=== PATIENT | male | born 1990 | race Caucasian/White ===

== ENCOUNTER 2023-10-11 21:43 | Emergency (ER) | payer OTHER, SELFPAY ==
[2023-10-11 21:52] VITALS: BP 143/92
--- NOTE | 2023-10-11 21:52 | ECG_ITS ---
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
[2023-10-11 21:53] VITALS: BP 143/92; PULSE 85; TEMP 37.2; O2SAT 98; BMI 28.1
[2023-10-11 22:12] VITALS: BP 135/94
--- NOTE | 2023-10-11 22:27 | ED_ITS ---
HPI - Chest Pain General Chief Complaint: Chest Pain Stated Complaint: CHEST PAIN Time Seen by Provider: 10/11/23 21:54 Source: patient Mode of arrival: walk-in History of Present Illness HPI narrative: This 32-year-old male, non-smoker, with a history of GERD presents for evaluation of left-sided chest pain. The patient states he woke up this morning and had several episodes of vomiting associated with chest pain. He also has a dry cough. He has had the pain intermittently throughout the day. Pain is worse with movement. He denies any abdominal pain. He states the pain in the left side of his chest radiates into his left arm and his fingers feel kind of tingly. He denies any heavy lifting or injury to his chest. He has no lower extremity pain or swelling. At this time he has a headache, the pain in his chest and mild nausea. He has not had a fever. He has no skin rash. He has no neck pain or stiffness. Related Data Home Medications ?Medication ?Instructions ?Recorded ?Confirmed cholecalciferol (vitamin D3) 50 50 mcg PO DAILY 10/11/23 10/11/23 mcg (2,000 unit) tablet (Vitamin D3) fluoxetine 20 mg capsule 80 mg PO DAILY 10/11/23 10/11/23 hydroxyzine HCl 50 mg tablet 50 mg PO BID 10/11/23 10/11/23 Allergies Allergy/AdvReac Type Severity Reaction Status Date / Time No Known Drug Allergies Allergy Verified 10/11/23 21:52 Review of Systems ROS Status of ROS 10 or more systems reviewed and unremark able except as noted in history and below Exam Narrative Exam Narrative: Vital signs and Nursing Notes reviewed: Patient is afebrile, pulse is normal at 85, blood pressure is mildly elevated at 143/92, he is not hypoxic with pulse ox of 98% on room air General: Awake, alert, oriented, no acute distress, lying comfortably on the stretcher, no respiratory distress, no active vomiting HEENT: Normocephalic atraumatic, mucous membranes are moist and pink, eyes are clear, normal conjunctiva, vision is grossly intact Neck: Supple, no meningeal signs, no anterior or posterior cervical lymphadenopathy Chest: Lungs are clear to auscultation with good air entry, there is no wheezing rhonchi or rales appreciated no accessory muscle use, patient is speaking in complete sentences-tenderness to palpation of the left anterior chest wall without crepitus CVS: Regular rate and rhythm S1-S2, no murmurs rubs or gallops, pulses are brisk and equal bilaterally ABD: Soft, nondistended, nontender, no rebound guarding or rigidity, bowel sounds are normal, no pulsatile masses appreciated Extremities: Moving all extremities, no lower extremity tenderness or swelling noted, negative Homans' sign, pulses are brisk and equal bilaterally Skin: Normal in appearance without rash,pallor, petechiae or purpura Neuro: No focal deficits Constitutional Vital Signs, click to edit/add: Last Vital Signs Temp 98.9 F 10/11/23 21:53 Pulse 85 10/11/23 21:53 Resp 18 10/11/23 21:53 BP 124/89 10/12/23 00:00 Pulse Ox 98 10/11/23 21:53 O2 Del Method Room Air 10/11/23 21:53 Course Vital Signs Vital signs: Vital Signs Blood Pressure 143/92 H 10/11/23 21:52 Temperature 98.9 F 10/11/23 21:53 Pulse Rate 85 10/11/23 21:53 Respiratory Rate 18 10/11/23 21:53 Blood Pressure 124/89 10/12/23 00:00 Pulse Oximetry 98 10/11/23 21:53 Oxygen Delivery Method Room Air 10/11/23 21:53 MDM - Chest Pain MDM Narrative Medical decision making narrative: This otherwise healthy 32-year-old male presents for evaluation of a headache and left-sided chest pain that radiates into his left arm with some numbness of the left hand. The pain in his chest is made worse with movement the patient states he woke up this morning with chest pain and had 2 episodes of vomiting. He does have a longstanding history of GE reflux but states this does not feel similar to that. He denies any shortness of breath dizziness or syncope. He has not had a fever. He is still nauseated but denies any abdominal pain. He has no flank pain. He has no lower extremity pain or swelling. He does not smoke or have a history of diabetes, hypertension, he is not obese. Patient's EKG was normal sinus rhythm with no acute changes. An IV was placed and he was medicated with IV fluids, 324 mg baby aspirin, Zofran and Toradol. Routine cardiac workup was ordered. He has a normal white count and hemoglobin. Electrolytes liver function tests and lipase are normal. Troponin and D-dimer are both normal. I reviewed his chest x-ray and it does not show any acute findings. Patient was reevaluated and states he is feeling the same. He will be given a dose of [place] while I wait for respiratory panel. I did explain to him that his labs are normal at this time. We will order a delta troponin as well. Respiratory panel is positive for rhino/enterovirus which explains his cough and vomiting. delta troponin is normal. He feels comfortable being discharged home at this time. I will discharge him with a prescription for Zofran and suggested that he use [id number] cough and cold remedies for the rhinovirus component of his illness. Medical Records Data Medical records narrative: The [place] [id number] XRay Report Signed Patient: ARTI MANUEL MR#: [id number] : 1990 Acct:[id number] Age/Sex: 32 / M ADM Date: 10/11/23 Loc: ER Attending Dr: Ordering Physician: Sloane Fuller Date of Service: 10/11/23 Procedure(s): XR chest 1V Accession Number(s): [id number] cc: Sloane Fuller; Physician,Non-Staff M.DJoyce~ The [place] [id number] Patient Name: ARTI MANUEL MRN: [id number] date: 1990 Sex: M Assigned Patient Location: ER Current Patient Location: ER Accession/Order Number: [id number] Exam Date: 10/11/2023 23:15 Report Date: 10/12/2023 00:35 At the request of: SLOANE FULLER Procedure: XR chest 1V CXR HISTORY: Chest pain with nausea and vomiting. COMPARISON: None. TECHNIQUE: 1 view chest submitted for review. FINDINGS: The lungs are adequately expanded without evidence of acute infiltrate or effusion. The cardiac silhouette measures within normal. Pulmonary vascularity is unremarkable. Osseous structures do not demonstrate any acute abnormality. XR/XR chest 1V IMPRESSION: No plain film evidence for acute cardiopulmonary disease. Electronically authenticated by: YANIV WHITMORE Date: 10/12/2023 00:35 Lab Data Labs: Lab Results 10/11/23 10/11/23 10/12/23 Range/Units 22:03 23:11 00:10 WBC 9.8 (4.0-11.0) 10^3/uL RBC 5.06 (4.70-6.10) 10^6/uL Hgb 15.8 (14.0-18.0) g/dL Hct 46.7 (42.0-54.0) % MCV 92.3 (80.0-94.0) fL MCH 31.2 (25.9-34.0) pg MCHC 33.8 (29.9-35.2) g/dL RDW 12.7 (11.0-15.0) % Plt Count 380 (150-450) 10^3/uL MPV 10.6 (9.5-13.5) fL Neut % (Auto) 52.8 (43.0-75.0) % Lymph % (Auto) 35.5 (20.5-60.0) % [place] % (Auto) 6.7 (1.7-12.0) % Eos % (Auto) 3.6 (0.9-7.0) % Baso % (Auto) 1.2 (0.2-2.0) % Neut # (Auto) 5.2 (1.4-6.5) 10^3/uL Lymph # (Auto) 3.5 (1.2-3.8) 10^3/uL [place] # (Auto) 0.7 (0.3-0.8) 10^3/uL Eos # (Auto) 0.4 (0.0-0.7) 10^3/uL Baso # (Auto) 0.1 (0.0-0.1) 10^3/uL Abs Immat Gran (auto) 0.02 (0.00-0.03) 10^3/uL Imm/Tot Granulo (auto) 0.2 (0.0-0.5) % D-Dimer <0.19 (<=0.59) mg/L FEU Sodium 143 (136-145) mmol/L Potassium 3.2 L (3.5-5.1) mmol/L Chloride 104 (98-107) mmol/L Carbon Dioxide 30.0 (21.0-32.0) mmol/L Anion Gap 12.2 BUN 14.0 (7.0-18.0) mg/dL Creatinine 1.22 (0.70-1.30) mg/dL Est GFR ( Amer) >60 (>=60) Est GFR (Non-Af Amer) >60 (>=60) BUN/Creatinine Ratio 11.5 Glucose 97 (74-106) mg/dL Calcium 9.5 (8.5-10.1) mg/dL Total Bilirubin 0.4 (0.2-1.0) mg/dL AST 20 (15-37) U/L ALT 53 (16-63) U/L Alkaline Phosphatase 95 (46-116) U/L Troponin I High Sens 11.1 10.7 (4.0-76.1) pg/mL Total Protein 8.2 (6.4-8.2) g/dL Albumin 3.9 (3.4-5.0) g/dL Globulin 4.3 g/dL Albumin/Globulin Ratio 0.9 Lipase 77.0 (16.0-77.0) U/L Adenovirus (PCR) Not detected (NOT DETECTE) B. pertussis DNA (PCR) Not detected (NOT DETECTE) B.parapertussis DNA PCR Not detected (NOT DETECTE) C. pneumoniae DNA (PCR) Not detected (NOT DETECTE) Coronavirus Type OC43 Not detected (NOT DETECTE) Coronavirus Type HKU1 Not detected (NOT DETECTE) Coronavirus Type 229E Not detected (NOT DETECTE) Coronavirus Type NL63 Not detected (NOT DETECTE) Human Metapneumovir PCR Not detected (NOT DETECTE) Influenza Type A (PCR) Not detected (NOT DETECTE) Influenza Type B (PCR) Not detected (NOT DETECTE) M. pneumoniae (PCR) Not detected (NOT DETECTE) Parainfluenza PCR Not detected (NOT DETECTE) Parainfluenza 2 (PCR) Not detected (NOT DETECTE) Parainfluenza 3 (PCR) Not detected (NOT DETECTE) Parainfluenza 4 (PCR) Not detected (NOT DETECTE) RSV (RT-PCR) Not detected (NOT DETECTE) Entero/Rhino (PCR) Detected A (NOT DETECTE) SARS-CoV-2 (PCR) Not detected (NOT DETECTE) ECG Data Attestation: I personally reviewed and interpreted this ECG as follows: (Sinus rhythm at 69 bpm, normal axis, normal intervals, no acute ST segment elevation or T wave inversion) Heart Score History: Slightly/Non-Suspicious ECG: Normal Age: <45 years Risk Factors: No Risk Factors Troponin: <Normal Limit Total Heart Score Recommendations & Risks:: 0 Discharge Plan Discharge Stand Alone Forms: Portal Instructions Chief Complaint: Chest Pain Clinical Impression: Acute viral syndrome, Chest pain, non-cardiac, Nausea & vomiting Patient Disposition: Home, Self-Care Time of Disposition Decision: 01:04 Condition: Good Prescriptions / Home Meds: No Action hydroxyzine HCl 50 mg tablet 50 mg PO BID cholecalciferol (vitamin D3) [Vitamin D3] 50 mcg (2,000 unit) tablet 50 mcg PO DAILY fluoxetine 20 mg capsule 80 mg PO DAILY Print Language: Kyrgyz Instructions: Acute Nausea and Vomiting (ED), Viral Syndrome (ED), Chest Wall Pain (ED) Referrals: Physician,Non-Staff, MD [Primary Care Provider] - 1 week
[2023-10-11 22:30] VITALS: BP 133/90
[2023-10-11] MEDS: ASPIRIN 81 MG TAB.CHEW 324 MG PO (22:44)
[2023-10-11] MEDS: 0.9 % SODIUM CHLORIDE 1,000 ML 1000 ML IV (22:44)
[2023-10-11] MEDS: ONDANSETRON PF 4 MG/2 ML VIAL IV (22:45)
[2023-10-11] MEDS: KETOROLAC TROMETHAMINE 30 MG/ML VIAL IVP (22:45)
[2023-10-11] MEDS: FAMOTIDINE/PF 20 MG/2 ML VIAL IV (22:45)
[2023-10-11 22:48] LABS: Basophils Absolute Auto 0.1 10^3/uL (0.0-0.1); Basophils Percent Auto 1.2 % (0.2-2.0); Eosinophils Absolute Auto 0.4 10^3/uL (0.0-0.7); Eosinophils Percent Auto 3.6 % (0.9-7.0); Hematocrit 46.7 % (42.0-54.0); Hemoglobin 15.8 g/dL (14.0-18.0); Immature Granulocytes Abs Auto 0.02 10^3/uL (0.00-0.03); Immature Granulocytes Pct Auto 0.2 % (0.0-0.5); Lymphocytes Absolute Auto 3.5 10^3/uL (1.2-3.8); Lymphocytes Percent Auto 35.5 % (20.5-60.0); Mean Corpuscular HGB Conc 33.8 g/dL (29.9-35.2); Mean Corpuscular Hemoglobin 31.2 pg (25.9-34.0); Mean Corpuscular Volume 92.3 fL (80.0-94.0); Mean Platelet Volume 10.6 fL (9.5-13.5); Monocytes Absolute Auto 0.7 10^3/uL (0.3-0.8); Monocytes Percent Auto 6.7 % (1.7-12.0); Neutrophils Absolute Auto 5.2 10^3/uL (1.4-6.5); Neutrophils Percent Auto 52.8 % (43.0-75.0); Platelet Count 380 10^3/uL (150-450); Red Blood Count 5.06 10^6/uL (4.70-6.10); Red Cell Distribution Width 12.7 % (11.0-15.0); White Blood Count 9.8 10^3/uL (4.0-11.0)
[2023-10-11 23:00] VITALS: BP 133/91
[2023-10-11 23:04] LABS: D Dimer <0.19 mg/L FEU (<=0.59)
[2023-10-11 23:07] LABS: Alanine Aminotransferase 53 U/L (16-63); Albumin Globulin Ratio 0.9; Albumin Level 3.9 g/dL (3.4-5.0); Alkaline Phosphatase 95 U/L (46-116); Anion Gap 12.2; Aspartate Amino Transferase 20 U/L (15-37); BUN Creatinine Ratio 11.5; Bilirubin Total 0.4 mg/dL (0.2-1.0); Calcium 9.5 mg/dL (8.5-10.1); Chloride 104 mmol/L (98-107); Estimated GFR (African America >60 (>=60); Estimated GFR (Non-African Ame >60 (>=60); Globulin 4.3 g/dL; Glucose 97 mg/dL (74-106); Potassium 3.2 mmol/L (3.5-5.1); Sodium 143 mmol/L (136-145); Total Protein 8.2 g/dL (6.4-8.2); Troponin I High Sensitivity 11.1 pg/mL (4.0-76.1)
--- NOTE | 2023-10-11 23:12 | XR_ITS ---
The [address] [address] Patient Name: ARTI MANUEL MRN: [id number] date: 1990 Sex: M Assigned Patient Location: ER Current Patient Location: ER Accession/Order Number: [id number] Exam Date: 10/11/2023 23:15 Report Date: 10/12/2023 00:35 At the request of: LAUREANO MARKER Procedure: XR chest 1V CXR HISTORY: Chest pain with nausea and vomiting. COMPARISON: None. TECHNIQUE: 1 view chest submitted for review. FINDINGS: The lungs are adequately expanded without evidence of acute infiltrate or effusion. The cardiac silhouette measures within normal. Pulmonary vascularity is unremarkable. Osseous structures do not demonstrate any acute abnormality. XR/XR chest 1V IMPRESSION: No plain film evidence for acute cardiopulmonary disease. Electronically authenticated by: YANIV WHITMORE Date: 10/12/2023 00:35
[2023-10-11 23:30] VITALS: BP 125/93
[2023-10-11 23:32] LABS: Adenovirus NOT DETECTED (NOT DETECTE); Bordetella parapertussis NOT DETECTED (NOT DETECTE); Coronavirus 229E NOT DETECTED (NOT DETECTE); Coronavirus HKU1 NOT DETECTED (NOT DETECTE); Coronavirus NL63 NOT DETECTED (NOT DETECTE); Coronavirus OC43 NOT DETECTED (NOT DETECTE); Human Metapneumovirus NOT DETECTED (NOT DETECTE); Influenza A NOT DETECTED (NOT DETECTE); Influenza B NOT DETECTED (NOT DETECTE); Mycoplasma pneumoniae NOT DETECTED (NOT DETECTE); Parainfluenza Virus 1 NOT DETECTED (NOT DETECTE); Parainfluenza Virus 2 NOT DETECTED (NOT DETECTE); Parainfluenza Virus 3 NOT DETECTED (NOT DETECTE); Parainfluenza Virus 4 NOT DETECTED (NOT DETECTE); Respiratory Syncytial Virus NOT DETECTED (NOT DETECTE); SARS-CoV-2 NOT DETECTED (NOT DETECTE)
[2023-10-12] VITALS: BP 124/89
[2023-10-12] MEDS: HYDROCODONE/ACET 5-325 MG TABLET 1 TAB PO (00:10)
[2023-10-12 00:24] LABS: Human Rhinovirus/Enterovirus DETECTED (NOT DETECTE)
[2023-10-12 00:30] VITALS: BP 127/81
[2023-10-12 00:43] LABS: Troponin I High Sensitivity 10.7 pg/mL (4.0-76.1)
[2023-10-12] MEDS: ONDANSETRON PF 4 MG/2 ML VIAL IV (00:44)
== END 2023-10-12 01:12 | disposition home or self-care (01) ==
PROVIDERS: Emergency Provider Emergency Medicine
DX: B34.8 Other viral infections of unspecified site (principal); R07.89 Other chest pain; R11.2 Nausea with vomiting, unspecified; K21.9 Gastro-esophageal reflux disease without esophagitis; Z20.822 Contact with and (suspected) exposure to COVID-19
CPT/HCPCS: 0202U; 36415; 71045; 80053; 83690; 84484; 85025; 85378; 93005; 96361; 96374; 96375; 96376; 99285; J1885; J2405

== ENCOUNTER 2024-06-09 21:19 | Emergency (ER) | payer OTHER, SELFPAY ==
[2024-06-09 21:21] VITALS: BP 164/102; PULSE 97; TEMP 36.8; O2SAT 98; BMI 26.6
--- NOTE | 2024-06-09 21:33 | ED.GENADUL1 ---
HPI HPI - General Adult General Chief complaint: Extremity Injury, Upper Stated complaint: POSS BROKEN HAND Time Seen by Provider: 06/09/24 21:23 Source: patient Mode of arrival: walk-in Limitations: no limitations History of Present Illness HPI narrative: 33-year-old male to the emergency department chief complaint of injury to his right hand. He is right-handed male. He was working on a vehicle when he became frustrated and punched a metal pole. He now has pain over he the ulnar aspect of his hand. No other injuries. Otherwise at his baseline health.Denies punching a person. Related Data Home Medications ?Medication ?Instructions ?Recorded ?Confirmed cholecalciferol (vitamin D3) 50 50 mcg PO DAILY 10/11/23 10/11/23 mcg (2,000 unit) tablet (Vitamin D3) fluoxetine 20 mg capsule 80 mg PO DAILY 10/11/23 10/11/23 hydroxyzine HCl 50 mg tablet 50 mg PO BID 10/11/23 10/11/23 Previous Rx's ?Medication ?Instructions ?Recorded hydrocodone 5 mg-acetaminophen 325 1 tab PO Q6H PRN pain 2 days #8 06/09/24 mg tablet tabs Allergies Allergy/AdvReac Type Severity Reaction Status Date / Time No Known Drug Allergies Allergy Verified 06/09/24 21:21 Opioid HPI Opioid Management Most Recent Opioid Data: No Data to Display Review of Systems ROS Status of ROS 10 or more systems reviewed and unremarkable except as noted in history and below PFSH PFSH Social History Little interest or pleasure in doing things: not at all Feeling down, depressed, or hopeless: not at all Exam Narrative Exam Narrative: VITALS: I have reviewed the triage vital signs. GENERAL: Well developed, well appearing adult in no acute distress. Right hand: Radial pulses intact. Sensation intact over the hand. There is tenderness and some swelling about the fifth metacarpal, worse proximally. No lacerations or breaks in the skin. SKIN: Warm and dry. Normal turgor. No rash or lesions appreciated. PSYCH: Mood, affect, and interaction is appropriate to the setting. Constitutional Vital Signs, click to edit/add: Last Vital Signs Temp 98.2 F 06/09/24 21:21 Pulse 97 H 06/09/24 21:21 Resp 15 06/09/24 21:21 BP 164/102 H 06/09/24 21:21 Pulse Ox 98 06/09/24 21:21 O2 Del Method Room Air 06/09/24 21:21 Course Vital Signs Vital signs: Vital Signs Temperature 98.2 F 06/09/24 21:21 Pulse Rate 97 H 06/09/24 21:21 Respiratory Rate 15 06/09/24 21:21 Blood Pressure 164/102 H 06/09/24 21:21 Pulse Oximetry 98 06/09/24 21:21 Oxygen Delivery Method Room Air 06/09/24 21:21 Temperature 98.2 F 06/09/24 21:21 Pulse Rate 97 H 06/09/24 21:21 Respiratory Rate 15 06/09/24 21:21 Blood Pressure 164/102 H 06/09/24 21:21 Pulse Oximetry 98 06/09/24 21:21 Oxygen Delivery Method Room Air 06/09/24 21:21 Medical Decision Making MDM Narrative Medical decision making narrative: 33-year-old male to the emergency department chief complaint of injury to his right hand. Vital stable, the patient is afebrile. He declines pain medication. X-ray is ordered. X-ray shows a metacarpal neck fracture of the fifth metacarpal bone with some volar angulation. Reduced using 90-90 technique. Placed in an ulnar gutter splint. Follow-up with orthopedics. Return precautions were discussed. Short course of pain medication. OARRS reviewed. All questions were answered. The patient was discharged home. Imaging Data Hand x-ray: Attestation: I have reviewed the pertinent imaging results. Radiologist's impression: See PACS document Discharge Plan Discharge Chief Complaint: Extremity Injury, Upper Clinical Impression: Boxer's fracture Patient Disposition: Home, Self-Care Time of Disposition Decision: 22:13 Condition: Good Mode of Transportation: Private Vehicle Prescriptions / Home Meds: New hydrocodone-acetaminophen 5-325 mg tablet 1 tab PO Q6H PRN (Reason: pain) 2 Days Qty: 8 0RF No Action hydroxyzine HCl 50 mg tablet 50 mg PO BID cholecalciferol (vitamin D3) [Vitamin D3] 50 mcg (2,000 unit) tablet 50 mcg PO DAILY fluoxetine 20 mg capsule 80 mg PO DAILY Print Language: Eritrean Instructions: Narcotic Safety (ED), Splint Care (ED), Boxer Fracture (ED) Referrals: Physician,Non-Staff, MD [Primary Care Provider] - 1 week Rivero,Manny C, MD [Physician] - 1 week (Follow-up with orthopedics within the next week) Procedures ED Procedure Instructions Procedures Procedures: Splinting Indication: Boxer's fracture Contraindication: None Splint type: Ulnar gutter Limb was neurovascularly intact before placement. Ulnar gutter custom molded fiberglass splint was placed by myself. Limb is neurovascularly intact after placement. Charan Arzola DO Fracture Reduction Indication: Boxer's fracture Contraindication: None The limb was neurovascularly intact prior to procedure. Verbal consent was obtained. Technique: 90-90 Successful reduction was obtained clinically. The limb was neurovascularly intact after the procedure. Patient tolerated the procedure well and there were no immediate complications. Charan Arzola DO
[2024-06-09] MEDS: HYDROCODONE/ACET 5-325 MG TABLET 1 TAB PO (22:25)
[2024-06-09 22:34] VITALS: BP 169/103; PULSE 81; O2SAT 96
== END 2024-06-09 22:34 | disposition home or self-care (01) ==
PROVIDERS: Emergency Provider Student in an Organized Health Care Education/Training Program
DX: S62.336A Displaced fracture of neck of fifth metacarpal bone, right hand, initial encounter for closed fracture (principal); W22.09XA Striking against other stationary object, initial encounter
CPT/HCPCS: 26605; 73130; 99284

== ENCOUNTER 2024-06-19 12:48 | Outpatient (OUT) | payer OTHER, SELFPAY ==
--- NOTE | 2024-06-19 | XR_ITS ---
The [place] [id number] Patient Name: ARTI MANUEL MRN: [id number] date: 1990 Sex: M Assigned Patient Location: Current Patient Location: Accession/Order Number: [id number] Exam Date: 06/19/2024 17:07 Report Date: 06/19/2024 17:07 At the request of: KRISTA DIAZ MD Procedure: XR hand RT min 3V RIGHT HAND - 3 views REASON FOR EXAM: Follow-up fifth metacarpal fracture COMPARISON: Right hand 06/09/2024 FINDINGS: Splint is in place. Fifth metacarpal fracture grossly unchanged alignment with interval sclerosis suggestive of healing response. XR/XR hand RT min 3V IMPRESSION: HEALING FIFTH METACARPAL FRACTURE. Impression dictated by: Steven Sanchez Jr. DJoyceOJoyce06/19/2024 5:07 PM Dictation Location: [place] [address] Electronically authenticated by: [id number] Y Date: 06/19/2024 17:07
--- OUTSIDE RECORDS SUMMARY | 2024-06-19 13:10 | XMS_ITS | CCD ---
Author Organization [facility] Care Team Providers Care Team Sports Sales Associate Name Role Phone Simone Krause Primary Care Provider SIMONE KRAUSE Primary Care Unavailable DEA SWARTZ Attending Unavailable SIMONE KRAUSE Primary Care Unavailable SIMONE KRAUSE Primary Care Unavailable SIMONE KRAUSE Referring Unavailable SIMONE KRAUSE Primary Care Unavailable DR LACY PHILIP Consulting Unavailable TAMERA, DR HOUSE Attending Unavailable CARLTON, DR MENDOZA Primary Care Unavailable DR LACY PHILIP Admitting Unavailable CHRISSIE MAHMOOD Consulting Unavailable DONOVAN CHONG Attending Unavailable DONOVAN CHONG Referring Unavailable Unavailable Primary Care Provider Unavailabl e Allergies Allergy Classification Reported Allergen(s) Allergy Type Date of Onset Reaction(s) Facility (5 sources) Shellfish-Derive d Products Propensity to adverse reactions to drug 2 [facility] (1 source) Bee pollen Drug Allergy 2 [facility] (1 source) Bee pollen Drug allergy (disorder) [facility] (1 source) Shellfish Drug allergy (disorder) [facility] (2 sources) Bee pollen Propensity to adverse reactions 2 [facility] (2 sources) Fish Oils Drug Allergy 3 [facility] Medications Current Medications Medication Drug Class(es) Dates Sig (Normalized) Sig (Original) acetaminophen 325 mg / oxyCODONE hydrochloride 5 mg oral tablet (1 source) Opioid Agonist Start: 06-18-2021 End: 06-21-2021 oxyCODONE-acetam inophen (PERCOCET) 5-325 MG per tablet Indications: Kidney stone Take 1 tablet by mouth every 6 hours as needed for Pain for up to 3 days. Intended supply: 3 days. Take lowest dose possible to manage pain 10 tablet 0 06/18/2021 06/21/2021 Active FLUoxetine 20 mg oral capsule (2 sources) Serotonin Reuptake Inhibitor Start: 11-25-2023 FLUoxetine (PROzac) 20 MG capsule Take 80 mg by mouth 11/25/2023 Active ibuprofen 800 mg oral tablet (1 source) Nonsteroidal Anti-inflammatory Drug Start: 11-11-2021 take 1 tablet by mouth every eight hours as needed for pain ibuprofen (ADVIL;MOTRIN) 800 MG tablet Take 1 tablet by mouth every 8 hours as needed for Pain 21 tablet 1 11/11/2021 Active Start: 11-11-2021 take 1 tablet by honey th every eight hours as needed for pain ibuprofen (ADVIL;MOTRIN) 800 MG tablet Take 1 tablet by mouth every 8 hours as needed for Pain 21 tablet 1 11/11/2021 Active 2 ml ketorolac tromethamine 30 mg/ml cartridge (5 sources) Nonsteroidal Anti-inflammatory Drug, Cyclooxygenase Inhibitor Start: 11-11-2021 ketorolac (TORADOL) injection 60 mg Start: 06-26-2021 ketorolac (TOR ADOL) injection 30 mg Start: 06-26-2021 take 1 tablet by honey th every six hours as needed for pain ketorolac (TORADOL) 10 MG tablet Take 1 tablet by mouth every 6 hours as needed for Pain 20 tablet 0 06/26/2021 Active Start: 06-18-2021 End: 06-18-2021 ketorolac (TORADOL) injectio n 30 mg metaxalone 800 mg oral tablet (1 source) Start: 11-11-2021 End: 11-21-2021 metaxalone (SKELAXIN) 800 MG tablet Take 1 tablet by mouth in the morning and 1 tablet at noon and 1 tablet before bedtime. Do all this for 10 days. 30 tablet 0 11/11/2021 11/21/2021 Active methocarbamol 750 mg oral tablet (2 sources) Muscle Relaxant Start: 05-02-2024 methocarbamol (Robaxin) 750 MG tablet Indications: Strain of neck muscle, initial encounter 1 or 2 at bedtime 30 tablet 05/02/2024 Active ondansetron 4 mg disintegrating oral tablet (3 sources) Serotonin-3 Receptor Antagonist Start: 06-18-2021 End: 06-21-2021 take 1 tablet by mouth every eight hours as needed for nausea ondansetron (ZOFRAN ODT) 4 MG disintegrating tablet Take 1 tablet by mouth every 8 hours as needed for Nausea or Vomiting 9 tablet 0 06/18/2021 06/21/2021 Active take 1 tablet by honey th every eight hours as needed for nausea ondansetron (ZOFRAN) 4 MG tablet Take 4 mg by mouth every 8 hours as needed for Nausea or Vomiting 0 Active SUMAtriptan 50 mg oral tablet (2 sources) Serotonin-1b and Serotonin-1d Receptor Agonist Start: 11-01-2023 SUMAtriptan (Imitrex) 50 MG tablet Take 50 mg by mouth 11/01/2023 Active tamsulosin hydrochloride 0.4 mg oral capsule (2 sources) alpha-Adrenergic June Start: 06-26-2021 End: 06-28-2021 take 1 capsule by mouth at bedtime tamsulosin (FLOMAX) 0.4 MG capsule Take 1 capsule by mouth in the morning and at bedtime for 2 days 4 capsule 0 06/26/2021 Active topiramate 25 mg oral tablet (2 sources) topiramate (Topamax) 25 MG tablet Take by mouth 2 (two) times a day Active Completed/Discontinued Medications Medication Drug Class(es) Dates Sig (Normalized) Sig (Original) cyclobenzaprine hydrochloride 10 mg oral tablet (1 source) Muscle Relaxant Start: 11-11-2021 End: 11-11-2021 cyclobenzaprine (FLEXERIL) tablet 5 mg Start: 11-11-2021 End: 11-11-2021 cyclobenzaprine (FLEXERIL) t ablet 5 mg methylPREDNISolone (2 sources) Corticosteroid Start: 05-02-2024 End: 05-09-2024 methylPREDNISolone (Medrol Dospak) 4 MG tablets Indications: Strain of neck muscle, initial encounter Follow schedule on package instructions 21 tablet 05/02/2024 05/09/2024 2 ml prochlorperazine 5 mg/ml injection (1 source) Phenothiazine Start: 06-18-2021 End: 06-18-2021 prochlorperazine (COMPAZINE) injection 10 mg Start: 06-18-2021 End: 06-18-2021 prochlorperazine (COMPAZINE) injection 10 mg 50 ml sodium chloride 9 mg/m l injection (1 source) Start: 06-26-2021 End: 06-26-2021 0.9 % sodium chloride bolus Problems Active Problems Problem Classification Problem Date Documented Date Episodic/Chronic Abdominal pain (5 sources) Unspecified abdominal pain; Translations: [Indigestion] Onset: 10-06-2020 Episodic Adjustment disorders (2 sources) Adjustment disorder with depressed mood; Translations: [Adjustment disorder with depressed mood] Onset: 05-02-2024 05-02-2024 Chronic Administrative/social admission (2 sources) Patient encounter status; Translations: [Encounter for examination for recruitment to [employer]] Onset: 05-02-2024 05-02-2024 Episodic Anxiety disorders (4 sources) Chronic post-traumatic stress disorder following combat; Translations: [Post-traumatic stress disorder, chronic] Onset: 05-02-2024 05-02-2024 Chronic Blindness and vision defects (2 sources) Astigmatism; Translations: [Unspecified astigmatism, unspecified eye] Onset: 05-02-2024 05-02-2024 Episodic Disorders of lipid metabolism (2 sources) Mixed hyperlipidemia; Translations: [Mixed hyperlipidemia] Onset: 05-02-2024 05-02-2024 Chronic Disorders of teeth and jaw (2 sources) Dental caries on pit and fissure surface penetrating into dentin; Translations: [Dental caries on pit and fissure surface penetrating into dentin] Onset: 05-02-2024 05-02-2024 Episodic Essential hypertension (1 source) Essential (primary) hypertension; Translations: [ESSENTIAL PRIMARY HYPERTENSION] Onset: 10-08-2020 Chronic Fluid and electrolyte disorders (2 sources) Hypokalemia; Translations: [Hypokalemia] Onset: 05-02-2024 05-02-2024 Episodic Headache; including migraine (2 sources) Migraine without aura, not refractory ; Translations: [Chronic migraine without aura, not intractable, without status migrainosus] Onset: 05-02-2024 05-02-2024 Chronic Immunizations and screening for infectious disease (2 sources) Exposure to sexually transmissible disorder; Translations: [Contact with and (suspected) exposure to infections with a predominantly sexual mode of transmission] Onset: 05-02-2024 05-02-2024 Episodic Intracranial injury (2 sources) History of traumatic brain injury; Translations: [Personal history of traumatic brain injury] Onset: 05-02-2024 05-02-2024 Episodic Joint disorders and dislocations; trauma-related (2 sources) Derangement of right knee; Translations: [Unspecified internal derangement of right knee] Onset: 05-02-2024 05-02-2024 Chronic Mood disorders (4 sources) Depressive disorder; Translations: [Depressive disorder] Onset: 05-02-2024 05-02-2024 Chronic Mycoses (2 sources) Dermatophytosis; Translations: [Dermatophytosis, unspecified] Onset: 05-02-2024 05-02-2024 Episodic Nutritional deficiencies (2 sources) Vitamin D deficiency; Translations: [Vitamin D deficiency, unspecified] Onset: 05-02-2024 05-02-2024 Chronic Other aftercare (2 sources) Surgical follow-up; Translations: [Encounter for surgical aftercare following surgery on the skin and subcutaneous tissue] Onset: 05-02-2024 05-02-2024 Episodic Other and unspecified benign neoplasm (2 sources) Lipoma of trunk; Translations: [Benign lipomatous neoplasm of skin and subcutaneous tissue of trunk] Onset: 05-02-2024 05-02-2024 Episodic Other connective tissue disease (1 source) Pain in left foot; Translations: [Pain in left foot] Episodic Other connective tissue disease (2 sources) Spasm of cervical paraspinous muscle; Translations: [Other muscle spasm] 05-02-2024 Episodic Other connective tissue disease (2 sources) Tibialis anterior tendinitis; Translations: [Anterior tibial syndrome, unspecified leg] Onset: 05-02-2024 05-02-2024 Episodic Other connective tissue disease (2 sources) Biceps tendinitis; Translations: [Bicipital tendinitis, unspecified shoulder] Onset: 05-02-2024 05-02-2024 Episodic Other connective tissue disease (2 sources) Muscle, ligament and fascia disorders; Translations: [Disorder of muscle, unspecified] Onset: 05-02-2024 05-02-2024 Episodic Other eye disorders (2 sources) Exotropia; Translations: [Unspecified exotropia] Onset: 05-02-2024 05-02-2024 Episodic Other male genital disorders (2 sources) Pain of right testicle; Translations: [Right testicular pain] Onset: 05-02-2024 05-02-2024 Episodic Other non-traumatic joint disorders (2 sources) Knee stiff; Translations: [Stiffness of unspecified knee, not elsewhere classified] Onset: 05-02-2024 05-02-2024 Episodic Other non-traumatic joint disorders (2 sources) Pain in left knee; Translations: [Pain in joint, lower leg] Onset: 05-02-2024 05-02-2024 Episodic Other skin disorders (2 sources) Finding of trunk structure; Translations: [Localized swelling, mass and lump, trunk] Onset: 05-02-2024 05-02-2024 Episodic Other skin disorders (2 sources) Sebaceous cyst of skin; Translations: [Sebaceous cyst] Onset: 05-02-2024 05-02-2024 Episodic Other upper respiratory disease (2 sources) Seasonal allergic rhinitis; Translations: [Other seasonal allergic rhinitis] Onset: 05-02-2024 05-02-2024 Chronic Poisoning by nonmedicinal substances (2 sources) Allergic reaction to bee sting; Translations: [Toxic effect of venom of bees, accidental (unintentional), initial encounter] Onset: 05-02-2024 05-02-2024 Episodic Residual codes; unclassified (2 sources) Uses moist tobacco daily; Translations: [Tobacco use] Onset: 05-02-2024 05-02-2024 Episodic Residual codes; unclassified (2 sources) Contact with and (suspected) exposure to other hazardous substances; Translations: [Contact with and (suspected) exposure to other potentially hazardous substances] Onset: 05-02-2024 05-02-2024 Episodic Residual codes; unclassified (2 sources) Insomnia; Translations: [Insomnia, unspecified] Onset: 05-02-2024 05-02-2024 Episodic Spondylosis; intervertebral disc disorders; other back problems (6 sources) Neck pain; Translations: [Cervicalgia] Onset: 05-02-2024 05-02-2024 Episodic Sprains and strains (3 sources) Low back strain; Translations: [Strain of muscle, fascia and tendon of lower back, initial encounter] Episodic Substance-related disorders (2 sources) Nicotine dependence; Translations: [Nicotine dependence, unspecified, uncomplicated] Onset: 05-02-2024 05-02-2024 Chronic Superficial injury; contusion (2 sources) Contusion of wrist; Translations: [Contusion of unspecified wrist, initial encounter] Onset: 05-02-2024 05-02-2024 Episodic Unclassified (1 source) PERSONAL HISTORY OF COVID-19; Translations: [PERSONAL HISTORY OF COVID-19] Onset: 10-08-2020 Past or Other Problems Problem Classification Problem Date Documented Date Episodic/Chronic Calculus of urinary tract (3 sources) Kidney stone; Translations: [Calculus of kidney] Onset: 10-08-2020 Episodic Other diseases of kidney and ureters (1 source) Hydronephrosis with renal and ureteral calculous obstruction; Translations: [HYDRONPHROS RENL AND URETRL CALCUL OBST] Onset: 10-08-2020 Episodic Results Test Name Value Interpretation Reference Range Facility XR CERVICAL SPINE COMPLETE 4 -5 VIEWSon 05-02-2024 XR CERVICAL SPINE COMPLETE 4-5 VIEWS TITLE OF EXAM: XR CERVICAL SPINE COMPLETE 4-5 VIEWS REASON FOR EXAM: Neck pain that radiates to right shoulder. TECHNIQUE: 5 radiographs of the cervical spine COMPARISONS: None. FINDINGS: No fracture; normal vertebral body heights. Anatomic alignment of the vertebral bodies and posterior elements; no significant listhesis. Minimal uncovertebral proliferation C3-7. No radiographically significant facet osteoarthrosis. No significant neural foraminal osseous stenosis. Anatomic atlantoaxial joints. No focal soft tissue abnormality. IMPRESSION: No fracture, listhesis, or radiographically significant degenerative changes. DICTATED ON: 05/02/2024 3:23 PM This report has been electronically signed and approved by the interpreting radiologist. Normal Not Available XR Cervical spine 4 or 5 Vie wson 05-02-2024 TITLE OF EXAM: XR CERVICAL SPINE COMPLETE 4-5 VIEWS REASON FOR EXAM: Neck pain that radiates to right shoulder. TECHNIQUE: 5 radiographs of the cervical spine COMPARISONS: None. FINDINGS: No fracture; normal vertebral body heights. Anatomic alignment of the vertebral bodies and posterior elements; no significant listhesis. Minimal uncovertebral proliferation C3-7. No radiographically significant facet osteoarthrosis. No significant neural foraminal osseous stenosis. Anatomic atlantoaxial joints. No focal soft tissue abnormality. IMPRESSION: No fracture, listhesis, or radiographically significant degenerative changes. DICTATED ON: 05/02/2024 3:23 PM This report has been electronically signed and approved by the interpreting radiologist. IMAGING Vishal Love MD - 05/02/2024 TITLE OF EXAM: XR CERVICAL SPINE COMPLETE 4-5 VIEWS REASON FOR EXAM: Neck pain that radiates to right shoulder. TECHNIQUE: 5 radiographs of the cervical spine COMPARISONS: None. FINDINGS: No fracture; normal vertebral body heights. Anatomic alignment of the vertebral bodies and posterior elements; no significant listhesis. Minimal uncovertebral proliferation C3-7. No radiographically significant facet osteoarthrosis. No significant neural foraminal osseous stenosis. Anatomic atlantoaxial joints. No focal soft tissue abnormality. IMPRESSION: No fracture, listhesis, or radiographically significant degenerative changes. DICTATED ON: 05/02/2024 3:23 PM This report has been electronically signed and approved by the interpreting radiologist. [facility] [employer] Radiology Study observation (narrative) [facility] [employer] XR Cervical spine 4 or 5 Vie wsOrdered By: Vishal Love on 05-02-2024 [employer] Work Phone: XR LUMBAR SPINE (2-3 VIEWS)o n 11-11-2021 XR LUMBAR SPINE (2-3 VIEWS) EXAMINATION: THREE XRAY VIEWS OF THE LUMBAR SPINE 11/11/2021 12:18 pm COMPARISON: None. HISTORY: ORDERING SYSTEM PROVIDED HISTORY: fall back pain TECHNOLOGIST PROVIDED HISTORY: fall back pain FINDINGS:[ Bones: Vertebral body heights maintained. No osseous lesion or destruction identified. Disc spaces/facet joints: Intervertebral disc spaces maintained. No distinct facet arthropathy. Alignment: 5 lumbar-type vertebral bodies. Straightening of the normal lumbar lordosis without listhesis. Soft tissues: Symmetric psoas muscle silhouettes. Other: Visualized portions of the sacroiliac joints maintained. IMPRESSION: [ 1. Straightening of the normal lumbar lordosis which may be related to positioning or spasm. 2. Vertebral body heights and intervertebral disc spaces maintained. Interpreted by: Lang Tirado MD Signed by: Lang Tirado MD 11/11/21 Final result Normal [facility] [ 1. Straightening of the normal lumbar lordosis which may be related to positioning or spasm. 2. Vertebral body heights and intervertebral disc spaces maintained. [facility]: THREE XRAY VIEWS OF THE LUMBAR SPINE 11/11/2021 12:18 pm COMPARISON: None. HISTORY: ORDERING SYSTEM PROVIDED HISTORY: fall back pain TECHNOLOGIST PROVIDED HISTORY: fall back pain FINDINGS:[ Bones: Vertebral body heights maintained. No osseous lesion or destruction identified. Disc spaces/facet joints: Intervertebral disc spaces maintained. No distinct facet arthropathy. Alignment: 5 lumbar-type vertebral bodies. Straightening of the normal lumbar lordosis without listhesis. Soft tissues: Symmetric psoas muscle silhouettes. Other: Visualized portions of the sacroiliac joints maintained. [facility] Lang Walls MD - 11/11/2021 EXAMINATION: THREE XRAY VIEWS OF THE LUMBAR SPINE 11/11/2021 12:18 pm COMPARISON: None. HISTORY: ORDERING SYSTEM PROVIDED HISTORY: fall back pain TECHNOLOGIST PROVIDED HISTORY: fall back pain FINDINGS:[ Bones: Vertebral body heights maintained. No osseous lesion or destruction identified. Disc spaces/facet joints: Intervertebral disc spaces maintained. No distinct facet arthropathy. Alignment: 5 lumbar-type vertebral bodies. Straightening of the normal lumbar lordosis without listhesis. Soft tissues: Symmetric psoas muscle silhouettes. Other: Visualized portions of the sacroiliac joints maintained. IMPRESSION: [ 1. Straightening of the normal lumbar lordosis which may be related to positioning or spasm. 2. Vertebral body heights and intervertebral disc spaces maintained. [employer] Work Phone: Radiology Study observation (narrative) [employer] Phone: XR LUMBAR SPINE (2-3 VIEWS)O rdered By: Lang Tirado on 11-11-2021 [employer] Work Phone: CBC with Auto Differentialon 06-26-2021 Absolute Eos # 0.31 [facility] th Absolute Immature Granulocyte <0.03 [facility] Lymph # 3.02 [facility] alth Absolute [place] # 0.57 [facility] lt Basophils (Bld) [#/Vol] 0.07 10*3/uL [facility] Basophils/100 WBC (Bld) 1 % 0 - 2 % [facility] Eosinophils/100 WBC (Bld) 4 % 1 - 4 % [facility] Hematocrit (Bld) [Volume fraction] 43.7 % 40.7 - 50.3 % [facility] Hemoglobin.gastroint estinal spec 1 Ql (Stl) 14.9 g/dL 13.0 - 17.0 g/dL [facility] Immature granulocytes/100 WBC (Bld) 0 % 0 [facility] Interpretation and review of laboratory results Abnormal [facility] Lymphocytes/100 WBC (Bld) 44 % High 24 - 43 % [facility] MCH (RBC) [Entitic mass] 31.5 pg 25.2 - 33.5 pg [facility] MCHC (RBC) [Mass/Vol] 34.1 g/dL 28.4 - 34.8 g/dL [facility] MCV (RBC) [Entitic vol] 92.4 fL 82.6 - 102.9 fL [facility] Monocytes/100 WBC (Bld) 8 % 3 - 12 % [facility] NRBC Automated 0.0 0.0 per 100 WBC [facility] Platelet distribution width (Bld) [Ratio] 12.1 % 11.8 - 14.4 % [facility] Platelet mean volume (Bld) [Entitic vol] 9.8 fL 8.1 - 13.5 fL [facility] Platelets (Bld) [#/Vol] 354 10*3/uL [facility] RBC (Bld) [#/Vol] 4.73 10*6/uL 4.21 - 5.7 7 m/uL [facility] Segmented neutrophils/100 WBC (Bld) 43 % 36 - 65 % [facility] Segs Absolute [facility].04 [facility] [#/Vol] 7.0 10*3/uL [facility] CBC with Diffon 06-26-2021 Abs. Basophil 0.07 k/uL Normal 0.00-0.20 [facility] Comment on above: Performed By: #### C DP, CP #### [facility] [address] [place] [address] Sand Conditioner: To Dey MD Abs.Imm.Granulocyte <0.03 Normal 0.00-0.30 [facility] Comment on above: Performed By: #### C DP, CP #### [facility] [address] [place] [address] Sand Conditioner: To Dey MD Abs.Neutrophil (Seg) 3.04 k/uL Normal 1.50-8.10 [facility] Comment on above: Performed By: #### C DP, CP #### [facility] [address] [place] [address] [address], [place] [address] Sand Conditioner: To Dey MD Basophils/100 WBC (Bld) 1 % Normal 0-2 [facility] Comment on above: Performed By: #### C DP, CP #### [address] [place], [place] [address] Sand Conditioner: To Dey MD Eosinophils (Bld) [#/Vol] 0.31 10*3/uL Normal 0.00-0.44 [facility] Comment on above: Performed By: #### C DP, CP #### [address] [place] [address] Sand Conditioner: To Dey MD Eosinophils/100 WBC (Bld) 4 % Normal 1-4 [facility] Comment on above: Performed By: #### C DP, CP #### [address] [place], [id number] Sand Conditioner: To Dey MD Erythrocyte distribution width (RBC) [Ratio] 12.1 % Normal 11.8-14.4 [facility] Comment on above: Performed By: #### C DP, CP #### [address] [place], [place] [address] Sand Conditioner: To Dey MD Hematocrit (Bld) [Volume fraction] 43.7 % Normal 40.7-50.3 [facility] Comment on above: Performed By: #### C DP, CP #### [address] [place], [id number] Sand Conditioner: To Dey MD Hemoglobin (Bld) [Mass/Vol] 14.9 g/dL Normal 13.0-17.0 [facility] Comment on above: Performed By: #### C DP, CP #### [facility] [address] [place], [place] [id number] Sand Conditioner: To Dey MD Immature granulocytes/100 WBC (Bld) 0 % Normal 0 [facility] Comment on above: Performed By: #### C DP, CP #### [facility] [address] [place], [place] [id number] Sand Conditioner: To Dey MD Lymphocytes (Bld) [#/Vol] 3.02 10*3/uL Normal 1.10-3.70 [facility] Comment on above: Performed By: #### C DP, CP #### [address] [place], [place] [id number] Sand Conditioner: To Dey MD Lymphocytes/100 WBC (Bld) 44 % High 24-43 [facility] Comment on above: Performed By: #### C DP, CP #### [address] [place], [id number] Sand Conditioner: To Dey MD MCH (RBC) [Entitic mass] 31.5 pg Normal 25.2-33.5 [facility] Comment on above: Performed By: #### C DP, CP #### [address] [place], [place] [id number] Sand Conditioner: To Dey MD MCHC (RBC) [Mass/Vol] 34.1 g/dL Normal 28.4-34.8 [facility] Comment on above: Performed By: #### C DP, CP #### [address] [place], [place] [id number] Sand Conditioner: To Dey MD MCV (RBC) [Entitic vol] 92.4 fL Normal 82.6-102.9 [facility] Comment on above: Performed By: #### C DP, CP #### [address] [place], [place] [id number] Sand Conditioner: To Dey MD Monocytes (Bld) [#/Vol] 0.57 10*3/uL Normal 0.10-1.20 [facility] Comment on above: Performed By: #### C DP, CP #### [facility] [address] [place] [address] Sand Conditioner: To Dey MD Monocytes/100 WBC (Bld) 8 % Normal 3-12 [facility] Comment on above: Performed By: #### C DP, CP #### [facility] [address] [place] [address] Sand Conditioner: To Dey MD Neutrophil (Seg) 43 % Normal 36-65 [facility] Comment on above: Performed By: #### C DP, CP #### [facility] [address] [place], [place] [id number] Sand Conditioner: To Dey MD NRBC Automated 0.0 per 100 WBC Normal 0.0 [facility] Comment on above: Performed By: #### C DP, CP #### [facility] [address] [place], [place] [id number] Sand Conditioner: To Dey MD Platelet mean volume (Bld) [Entitic vol] 9.8 fL Normal 8.1-13.5 [facility] Comment on above: Performed By: #### C DP, CP #### [facility] [address] [place], [place] [id number] Sand Conditioner: To Dey MD Platelets (Bld) [#/Vol] 354 10*3/uL Normal 138-453 [facility] Comment on above: Performed By: #### C DP, CP #### [facility] [address] [place] [address] Sand Conditioner: To Dey MD RBC (Bld) [#/Vol] 4.73 10*6/uL Normal 4.21-5.77 [facility] Comment on above: Performed By: #### C DP, CP #### [facility] [address] [place] [address] Sand Conditioner: To Dey MD WBC (Bld) [#/Vol] 7.0 10*3/uL Normal 3.5-11.3 [facility] Comment on above: Performed By: #### C DP, CP #### [facility] [facility] [address] [place], [place] [id number] Sand Conditioner: To Dey MD CT ABDOMEN PELVIS WO CONTRAS Ton 06-26-2021 CT ABDOMEN PELVIS WO CONTRAST EXAMINATION: CT OF THE ABDOMEN AND PELVIS WITHOUT CONTRAST 06/26/2021 3:05 pm TECHNIQUE: CT of the abdomen and pelvis was performed without the administration of intravenous contrast. Multiplanar reformatted images are provided for review. Dose modulation, iterative reconstruction, and/or weight based adjustment of the mA/kV was utilized to reduce the radiation dose to as low as reasonably achievable. COMPARISON: None. HISTORY: ORDERING SYSTEM PROVIDED HISTORY: kidney stone TECHNOLOGIST PROVIDED HISTORY: kidney stone Decision Support Exception - unselect if not a suspected or confirmed emergency medical condition->Emergency Medical Condition (MA) FINDINGS: Lower Chest: No lung base consolidation, lung base mass pleural effusions were noted. Organs: The liver, decompressed gallbladder, spleen, both adrenals and pancreas appeared normal. A very small fixed hiatal hernia was noted. A 1-2 mm minimally obstructing calculus was noted at the right UVJ causing very mild right pyelectasis and ureterectasis. A cortical cyst was noted off the upper pole the left kidney. No renal calculi were identified. GI/Bowel: No colitis, diverticulitis or appendicitis were noted. Pelvis: Mild uniform wall thickening of the urinary bladder was noted. The prostate was not enlarged. No ascites was noted. Peritoneum/Retroperit oneum: No abdominal or pelvic lymphadenopathy were noted. Bones/Soft Tissues: A small umbilical hernia was noted which contained uncomplicated adipose tissue measuring 2 centimetres. IMPRESSION: A 1-2 mm minimally obstructing calculus was noted at the right UVJ causing very mild right pyelectasis and right ureterectasis. Mild uniform wall thickening of the urinary bladder was noted. The prostate was not enlarged. The wall thickening could be due to cystitis.. Interpreted by: Canelo Savage Signed by: Canelo Savage 06/26/21 Final result Normal [facility] CT ABDOMEN PELVIS WO CONTRAS T Additional Contrast? Noneon 06-26-2021 A 1-2 mm minimally obstructing calculus was noted at the right UVJ causing very mild right pyelectasis and right ureterectasis. Mild uniform wall thickening of the urinary bladder was noted. The prostate was not enlarged. The wall thickening could be due to cystitis.. [facility] EXAMINATION: CT OF THE ABDOMEN AND PELVIS WITHOUT CONTRAST 06/26/2021 3:05 pm TECHNIQUE: CT of the abdomen and pelvis was performed without the administration of intravenous contrast. Multiplanar reformatted images are provided for review. Dose modulation, iterative reconstruction, and/or weight based adjustment of the mA/kV was utilized to reduce the radiation dose to as low as reasonably achievable. COMPARISON: None. HISTORY: ORDERING SYSTEM PROVIDED HISTORY: kidney stone TECHNOLOGIST PROVIDED HISTORY: kidney stone Decision Support Exception - unselect if not a suspected or confirmed emergency medical condition->Emergency Medical Condition (MA) FINDINGS: Lower Chest: No lung base consolidation, lung base mass pleural effusions were noted. Organs: The liver, decompressed gallbladder, spleen, both adrenals and pancreas appeared normal. A very small fixed hiatal hernia was noted. A 1-2 mm minimally obstructing calculus was noted at the right UVJ causing very mild right pyelectasis and ureterectasis. A cortical cyst was noted off the upper pole the left kidney. No renal calculi were identified. GI/Bowel: No colitis, diverticulitis or appendicitis were noted. Pelvis: Mild uniform wall thickening of the urinary bladder was noted. The prostate was not enlarged. No ascites was noted. Peritoneum/Retroperit oneum: No abdominal or pelvic lymphadenopathy were noted. Bones/Soft Tissues: A small umbilical hernia was noted which contained uncomplicated adipose tissue measuring 2 centimetres. [facility] Canelo Savage - 06/26/2021 EXAMINATION: CT OF THE ABDOMEN AND PELVIS WITHOUT CONTRAST 06/26/2021 3:05 pm TECHNIQUE: CT of the abdomen and pelvis was performed without the administration of intravenous contrast. Multiplanar reformatted images are provided for review. Dose modulation, iterative reconstruction, and/or weight based adjustment of the mA/kV was utilized to reduce the radiation dose to as low as reasonably achievable. COMPARISON: None. HISTORY: ORDERING SYSTEM PROVIDED HISTORY: kidney stone TECHNOLOGIST PROVIDED HISTORY: kidney stone Decision Support Exception - unselect if not a suspected or confirmed emergency medical condition->Emergency Medical Condition (MA) FINDINGS: Lower Chest: No lung base consolidation, lung base mass pleural effusions were noted. Organs: The liver, decompressed gallbladder, spleen, both adrenals and pancreas appeared normal. A very small fixed hiatal hernia was noted. A 1-2 mm minimally obstructing calculus was noted at the right UVJ causing very mild right pyelectasis and ureterectasis. A cortical cyst was noted off the upper pole the left kidney. No renal calculi were identified. GI/Bowel: No colitis, diverticulitis or appendicitis were noted. Pelvis: Mild uniform wall thickening of the urinary bladder was noted. The prostate was not enlarged. No ascites was noted. Peritoneum/Retroperit oneum: No abdominal or pelvic lymphadenopathy were noted. Bones/Soft Tissues: A small umbilical hernia was noted which contained uncomplicated adipose tissue measuring 2 centimetres. IMPRESSION: A 1-2 mm minimally obstructing calculus was noted at the right UVJ causing very mild right pyelectasis and right ureterectasis. Mild uniform wall thickening of the urinary bladder was noted. The prostate was not enlarged. The wall thickening could be due to cystitis.. [employer] Phone: Radiology Study observation (narrative) [employer] Phone: CT ABDOMEN PELVIS WO CONTRAS T Additional Contrast? NoneOrdered By: Canelo Savage on 06-26-2021 [employer] Phone: Comp Metabolic Profon 2021 (cont.) Normal [facility] Comment on above: Result Comment: Aver age GFR for 30-39 years old: 107 mL/min/1.73sq m Chronic Kidney Disease: <60 mL/min/1.73sq m Kidney failure: <15 mL/min/1.73sq m eGFR calculated using average adult body mass. Additional eGFR calculator available at: http://www.Puddle.MUJIN/multiple_crcl_2011.htm Performed By: #### C DP, CP #### [facility] [address] [place], [place] [id number] Sand Conditioner: To Dey MD Albumin [Mass/Vol] 4.2 g/dL Normal 3.5-5.2 [facility] Comment on above: Performed By: #### C DP, CP #### [facility] [address] [place], [place] [id number] Sand Conditioner: To Dey MD Albumin/Glob Ratio 1.3 Normal 1.0-2.5 [facility] Comment on above: Performed By: #### C DP, CP #### [facility] [address] [place], [place] [id number] Sand Conditioner: To Dey MD Alkaline Phos 83 U/L Normal 40-129 [facility] Comment on above: Performed By: #### C DP, CP #### [facility] [address] [place] [address] Sand Conditioner: To Dey MD ALT [Catalytic activity/Vol] 23 U/L Normal 5-41 [facility] Comment on above: Performed By: #### C DP, CP #### [address] [place] [address] Sand Conditioner: To Dey MD Anion gap [Moles/Vol] 12 mmol/L Normal 9-17 [facility] Comment on above: Performed By: #### C DP, CP #### [facility] [address] [place] [address] Sand Conditioner: To Dey MD AST [Catalytic activity/Vol] 17 U/L Normal <40 [facility] Comment on above: Performed By: #### C DP, CP #### [facility] [address] [place], [place] [id number] Sand Conditioner: To Dey MD Bilirubin [Mass/Vol] 0.39 mg/dL Normal 0.3-1.2 [facility] Comment on above: Performed By: #### C DP, CP #### [facility] [address] [place], [place] [id number] Sand Conditioner: To Dey MD BUN/CRE Ratio 11 Normal 9-20 [facility] Comment on above: Performed By: #### C DP, CP #### [facility] [address] [place], [place] [id number] Sand Conditioner: To Dey MD Calcium [Mass/Vol] 9.4 mg/dL Normal 8.6-10.4 [facility] Comment on above: Performed By: #### C DP, CP #### [facility] [address] [place], [place] [id number] Sand Conditioner: To Dey MD Chloride [Moles/Vol] 102 mmol/L Normal 98-107 [facility] Comment on above: Performed By: #### C DP, CP #### [facility] [address] [place], [place] [id number] Sand Conditioner: To Dey MD CO2 [Moles/Vol] 23 mmol/L Normal 20-31 [facility] Comment on above: Performed By: #### C DP, CP #### [facility] [address] [place], [place] [id number] Sand Conditioner: To Dey MD Creatinine [Mass/Vol] 1.50 mg/dL High 0.70-1.20 [facility] Comment on above: Performed By: #### C DP, CP #### [facility] [address] [place], [place] [id number] Sand Conditioner: To Dey MD GFR, Amer >60 Normal >60 [facility] Comment on above: Performed By: #### C DP, CP #### [facility] [address] [place], [place] [id number] Sand Conditioner: To Dey MD GFR,non Amer 55 mL/min Low >60 [facility] Comment on above: Performed By: #### C DP, CP #### [facility] [address] [place] [address] [address], [place] 8[address]83 Sand Conditioner: To Dey MD Glucose [Mass/Vol] 94 mg/dL Normal 70-99 [facility] Comment on above: Performed By: #### C DP, CP #### [facility] [address] [place], [place] [phone] Sand Conditioner: To Dey MD Potassium [Moles/Vol] 3.5 mmol/L Low 3.7-5.3 [facility] Comment on above: Performed By: #### C DP, CP #### [address] [place], [place] [phone] Sand Conditioner: To Dey MD Protein [Mass/Vol] 7.5 g/dL Normal 6.4-8.3 [facility] Comment on above: Performed By: #### C DP, CP #### [address] [place], [place] [address] Sand Conditioner: To Dey MD Sodium [Moles/Vol] 137 mmol/L Normal 135-144 [facility] Comment on above: Performed By: #### C DP, CP #### [address] [place], [place] [phone] Sand Conditioner: To Dey MD Staging: Normal [facility] Comment on above: Result Comment: Stag e 1: Some kidney damage normal GFR Stage 2: Mild kidney damage GFR 60-89 Stage 3: Moderate kidney damage GFR 30-59 Stage 4: Severe kidney damage GFR 15-29 Stage 5: Severe kidney damage GFR <15 ESRD - chronic treatment by dialysis or transplant Performed By: #### C DP, CP #### [address] [place] [address] Sand Conditioner: To Dey MD Urea nitrogen [Mass/Vol] 17 mg/dL Normal 6-20 [facility] Comment on above: Performed By: #### C DP, CP #### [facility] [address] [place] [address] Sand Conditioner: To Dey MD Comprehensive Metabolic Pane susanne 06-26-2021 Albumin [Mass/Vol] 4.2 g/dL 3.5 - 5.2 g/dL [facility] Albumin/Globulin [Mass ratio] 1.3 {ratio} [facility] ALP (Bld) [Catalytic activity/Vol] 83 U/L 40 - 129 U/L [facility] ALT [Catalytic activity/Vol] 23 U/L 5 - 41 U/L [facility] Anion gap [Moles/Vol] 12 mmol/L 9 - 17 mmol/L [facility] AST [Catalytic activity/Vol] 17 U/L <40 [facility] Bilirubin [Mass/Vol] 0.39 mg/dL 0.3 - 1 .2 mg/dL [facility] Calcium [Mass/Vol] 9.4 mg/dL 8.6 - 10. 4 mg/dL [facility] Chloride [Moles/Vol] 102 mmol/L 98 - 10 7 mmol/L [facility] CO2 [Moles/Vol] 23 mmol/L 20 - 31 mmol/L [facility] Creatinine [Mass/Vol] 1.5 mg/dL High 0.70 - 1.20 mg/dL [facility] Free PSA/Total PSA [Mass fraction] 7.5 g/dL 6.4 - 8.3 g/dL [facility] GFR >60 >60 mL/min [facility] GFR Non- 55 mL/min Low >60 [facility] Glucose [Mass/Vol] 94 mg/dL 70 - 99 mg/dL [facility] Interpretation and review of laboratory results Abnormal [facility] Potassium [Moles/Vol] 3.5 mmol/L Low 3.7 - 5.3 mmol/L [facility] Sodium [Moles/Vol] 137 mmol/L 135 - 144 mmol/L [facility] Urea nitrogen (BldV) [Mass/Vol] 17 mg/dL 6 - 20 mg/dL [facility] Urea nitrogen/Creatinine (Bld) [Mass ratio] 11 [facility] - Chemistry and C hemistry - challengeon 06-26-2021 GFR/1.73 sq M.predicted MDRD (S/P/Bld) [Vol rate/Area] [facility] Comment on above: Average GFR for 30-3 9 years old: 107 mL/min/1.73sq m Chronic Kidney Disease: <60 mL/min/1.73sq m Kidney failure: <15 mL/min/1.73sq m eGFR calculated using average adult body mass. Additional eGFR calculator available at: http://www.eTax Credit Exchange/multiple_crcl_2012.htm Stage 1: Some kidney damage normal GFR Stage 2: Mild kidney damage GFR 60-89 Stage 3: Moderate kidney damage GFR 30-59 Stage 4: Severe kidney damage GFR 15-29 Stage 5: Severe kidney damage GFR <15 ESRD - chronic treatment by dialysis or transplant Urinalysis w/ Microon 2021 ----- Normal [facility] Comment on above: Performed By: #### U AMIC #### [facility] [address] [place] [address] Sand Conditioner: To Dey MD Bacteria TRACE Abnormal NONE [facility] Comment on above: Performed By: #### U AMIC #### [facility] [address] [place] [address] Sand Conditioner: To Dey MD Bilirubin, SemiQt,Ur Negative Normal NEG [facility] Comment on above: Performed By: #### U AMIC #### [facility] [address] [place] [address] Sand Conditioner: To Dey MD Blood, Urine 1+ Abnormal NEG [facility] Comment on above: Performed By: #### U AMIC #### [facility] [address] [place] [address] Sand Conditioner: To Dey MD Clarity (U) Clear Normal CLEAR [facility] Comment on above: Performed By: #### U AMIC #### [facility] [address] [place], [place] [phone] Sand Conditioner: To Dey MD Color (U) Yellow Normal YEL [facility] Comment on above: Performed By: #### U AMIC #### [facility] [address] [place], [place] [phone] Sand Conditioner: To Dey MD Epithelial cells LM Ql (Urine sed) 0 TO 2 Normal 0-5 [facility] Comment on above: Performed By: #### U AMIC #### [address] [place], [place] [id number] Sand Conditioner: To Dey MD Glucose Ql (U) Negative Normal NEG [facility] Comment on above: Performed By: #### U AMIC #### [facility] [address] [place] [address] [place], [place] [id number] Sand Conditioner: To Dey MD Ketones Ql (U) Negative Normal NEG [facility] Comment on above: Performed By: #### U AMIC #### [address] [place], [place] [id number] Sand Conditioner: To Dey MD Leukocyte esterase Test strip Ql (U) Negative Normal NEG [facility] Comment on above: Performed By: #### U AMIC #### [address] [place], [place] [id number] Sand Conditioner: To Dey MD Nitrite,Ur Negative Normal NEG [facility] Comment on above: Performed By: #### U AMIC #### [address] [place] [address] Sand Conditioner: To Dey MD PH,Ur 7.0 Normal 5.0-9.0 [facility] Comment on above: Performed By: #### U AMIC #### [address] [place] [address] Sand Conditioner: To Dey MD Protein Ql (U) Negative Normal NEG [facility] Comment on above: Performed By: #### U AMIC #### [facility] [address] [place] [address] Sand Conditioner: To Dey MD Spec. [place],Ur 1.015 Normal 1.010-1.020 [facility] Comment on above: Performed By: #### U AMIC #### [facility] [address] [place] [place] [address] Sand Conditioner: To Dey MD Urine RBC's 2 TO 5 Normal 0-2 [facility] Comment on above: Performed By: #### U AMIC #### [facility] [address] [place], [place] [phone] Sand Conditioner: To Dey MD Urine WBC's 2 TO 5 Normal 0-5 [facility] Comment on above: Performed By: #### U AMIC #### [facility] [address] [place] [address] [place] [address] Sand Conditioner: To Dey MD Urobilinogen,Ur Normal Normal NORM [facility] Comment on above: Performed By: #### U AMIC #### [facility] [address] [place] [place] [address] Sand Conditioner: To Dey MD Urinalysis with Microscopico n 06-26-2021 - [facility] Bacteria, UA TRACE Abnormal None [facility] Bilirubin Urine Negative NEGATIVE [facility] Color, UA Yellow Yellow [facility] Epithelial Cells UA 0 TO 2 [facility] Glucose, Ur Negative NEGATIVE [facility] Interpretation and review of laboratory results Abnormal [facility] Ketones Ql (U) Negative NEGATIVE [facility] Leukocyte esterase Test strip Ql (U) Negative NEGATIVE [facility] Nitrite, Urine Negative NEGATIVE [facility] pH, UA 7.0 [facility] Protein, UA Negative NEGATIVE [facility] RBC, UA 2 TO 5 [facility] Specific [place], UA 1.015 [facility] Turbidity UA Clear Clear [facility] Urine Hgb 1+ Abnormal NEGATIVE [facility] Urobilinogen, Urine Normal Normal [facility] WBC, UA 2 TO 5 [facility] Basic Metab w/rfx MGon 06-18 Potassium [Moles/Vol] 3.3 mmol/L Low 3.7-5.3 [facility] Comment on above: Performed By: #### Luis Chen, BMPX #### [facility] [address] [place] [address] Sand Conditioner: To Dey MD (cont.) [facility] Comment on above: Result Comment: Aver age GFR for 30-39 years old: 107 mL/min/1.73sq m Chronic Kidney Disease: <60 mL/min/1.73sq m Kidney failure: <15 mL/min/1.73sq m eGFR calculated using average adult body mass. Additional eGFR calculator available at: http://www.Puddle.MUJIN/multiple_crcl_2012.htm Performed By: #### Luis Chen, BMPX #### [facility] [address] [place] [address] Sand Conditioner: To Dey MD Anion gap [Moles/Vol] 11 mmol/L Normal - [facility] Comment on above: Performed By: #### Luis Chen, BMPX #### [facility] [address] [place] [address] Sand Conditioner: To Dey MD BUN/CRE Ratio 16 Normal - [facility] Comment on above: Performed By: #### Luis Chen, BMPX #### [facility] [address] [place] [address] Sand Conditioner: To Dey MD Calcium [Mass/Vol] 9.4 mg/dL Normal 8.6-10.4 [facility] Comment on above: Performed By: #### Luis Chen, BMPX #### [facility] [address] [place], [place] [id number] Sand Conditioner: To Dey MD Chloride [Moles/Vol] 108 mmol/L High 98-107 [facility] Comment on above: Performed By: #### M G, BMPX #### [facility] [address] [place], [place] [address] Sand Conditioner: To Dey MD CO2 [Moles/Vol] 20 mmol/L Normal 20-31 [facility] Comment on above: Performed By: #### M G, BMPX #### [facility] [address] [place], [place] [address] Sand Conditioner: To Dey MD Creatinine [Mass/Vol] 1.11 mg/dL Normal 0.70-1.20 [facility] Comment on above: Performed By: #### M April, BMPX #### [facility] [address] [place], [place] [address]84[address] Sand Conditioner: To Dey MD GFR, Amer >60 Normal >60 [facility] Comment on above: Performed By: #### Luis Chen, BMPX #### [facility] [address] [place], [place] [id number] Sand Conditioner: To Dey MD GFR,non Amer >60 Normal >60 [facility] Comment on above: Performed By: #### M April, BMPX #### [facility] [address] [place], [place] [address] Sand Conditioner: To Dey MD Glucose [Mass/Vol] 109 mg/dL High 70-99 [facility] Comment on above: Performed By: #### M G, BMPX #### [facility] [address] [place], [place] [address]383 Sand Conditioner: To Dey MD Sodium [Moles/Vol] 139 mmol/L Normal 135-144 [facility] Comment on above: Performed By: #### M G, BMPX #### [facility] [address] [place] [address] Sand Conditioner: To Dey MD Staging: Normal [facility] Comment on above: Result Comment: Stag e 1: Some kidney damage normal GFR Stage 2: Mild kidney damage GFR 60-89 Stage 3: Moderate kidney damage GFR 30-59 Stage 4: Severe kidney damage GFR 15-29 Stage 5: Severe kidney damage GFR <15 ESRD - chronic treatment by dialysis or transplant Performed By: #### M G, BMPX #### [facility] [address] [place] [address] Sand Conditioner: To Dey MD Urea nitrogen [Mass/Vol] 18 mg/dL Normal 6-20 [facility] Comment on above: Performed By: #### M G, BMPX #### [facility] [address] [place] [address] Sand Conditioner: To Dey MD Basic Metabolic Panel w/ Ref jesusita to MGon 06-18-2021 Anion gap [Moles/Vol] 11 mmol/L 9 - 17 mmol/L [facility] Calcium [Mass/Vol] 9.4 mg/dL 8.6 - 10. 4 mg/dL [facility] Chloride [Moles/Vol] 108 mmol/L High 98 - 10 7 mmol/L [facility] CO2 [Moles/Vol] 20 mmol/L 20 - 31 mmol/L [facility] Creatinine [Mass/Vol] 1.11 mg/dL 0.70 - 1.20 mg/dL [facility] GFR >60 >60 mL/min [facility] GFR Non- >60 >60 mL/min [facility] Glucose [Mass/Vol] 109 mg/dL High 70 - 99 mg/dL [facility] Interpretation and review of laboratory results Abnormal [facility] Potassium [Moles/Vol] 3.3 mmol/L Low 3.7 - 5.3 mmol/L [facility] Sodium [Moles/Vol] 139 mmol/L 135 - 144 mmol/L [facility] Urea nitrogen (BldV) [Mass/Vol] 18 mg/dL 6 - 20 mg/dL [facility] Urea nitrogen/Creatinine (Bld) [Mass ratio] 16 [facility] - Chemistry and C hemistry - challengeon 06-18-2021 GFR/1.73 sq M.predicted MDRD (S/P/Bld) [Vol rate/Area] [facility] Comment on above: Average GFR for 30-3 9 years old: 107 mL/min/1.73sq m Chronic Kidney Disease: <60 mL/min/1.73sq m Kidney failure: <15 mL/min/1.73sq m eGFR calculated using average adult body mass. Additional eGFR calculator available at: http://www.eTax [employer] Exchange/multiple_crcl_2012.htm Stage 1: Some kidney damage normal GFR Stage 2: Mild kidney damage GFR 60-89 Stage 3: Moderate kidney damage GFR 30-59 Stage 4: Severe kidney damage GFR 15-29 Stage 5: Severe kidney damage GFR <15 ESRD - chronic treatment by dialysis or transplant Magnesiumon 06-18-2021 Magnesium [Mass/Vol] 2.2 mg/dL Normal 1.6-2.6 [facility] Comment on above: Performed By: #### M G, BMPX #### [facility] [address] [place] [address] Sand Conditioner: To Dey MD Magnesium [Mass/Vol] 2.2 mg/dL 1.6 - 2 .6 mg/dL [facility] Microscopic Urinalysison - [facility] Epithelial Cells UA 0 TO 2 [facility] Interpretation and review of laboratory results Abnormal [facility] Mucus, UA 1+ Abnormal None [facility] RBC, UA 20 TO 50 [facility] WBC, UA 0 TO 2 [facility] UA w/Reflex Cultureon 2021 Bilirubin, SemiQt,Ur Negative Normal NEG [facility] Comment on above: Performed By: #### VALENCIA HIGGINS #### [facility] [address] [place] [address] Sand Conditioner: To Dey MD Blood, Urine 3+ Abnormal NEG [facility] Comment on above: Performed By: #### U REX HERRMANNICAO #### [facility] [address] [place] [address] [place], [place] [id number] Sand Conditioner: To Dey MD Clarity (U) SLIGHTLY CLOUDY Abnormal CLEAR [facility] Comment on above: Performed By: #### U AX, UMICAO #### [address] [place], [place] [phone] Sand Conditioner: To Dey MD Color (U) Yellow Normal YEL [facility] Comment on above: Performed By: #### U AX, UMICAO #### [address] [place] [address] Sand Conditioner: To Dey MD Glucose Ql (U) Negative Normal NEG [facility] Comment on above: Performed By: #### U AX, UMICAO #### [address] [place], [place] [phone] Sand Conditioner: To Dey MD Ketones Ql (U) Negative Normal NEG [facility] Comment on above: Performed By: #### U AX, UMICAO #### [address] [place] [address] Sand Conditioner: To Dey MD Leukocyte esterase Test strip Ql (U) Negative Normal NEG [facility] Comment on above: Performed By: #### U AX, UMICAO #### [facility] [address] [place] [address] [place]. [place], [place] [id number] Sand Conditioner: To Dey MD Nitrite,Ur Negative Normal NEG [facility] Comment on above: Performed By: #### U AX, UMICAO #### [address] [place], [place] [id number] Sand Conditioner: To Dey MD PH,Ur 6.0 Normal 5.0-9.0 [facility] Comment on above: Performed By: #### U AX, UMICAO #### [facility] [address] [place], [place] [id number] Sand Conditioner: To Dey MD Protein Ql (U) Negative Normal NEG [facility] Comment on above: Performed By: #### U AX, UMICAO #### [facility] [address] [place], [place] [id number] Sand Conditioner: To Dey MD Spec. [place],Ur 1.015 Normal 1.010-1.020 [facility] Comment on above: Performed By: #### U AX, UMICAO #### [facility] [address] [place] [address] [place], [place] [id number] Sand Conditioner: To Dey MD Urobilinogen,Ur Normal Normal NORM [facility] Comment on above: Performed By: #### U AX, UMICAO #### [facility] [address] [place] [address] Dr. [place], [id number] Sand Conditioner: To Dey MD Urinalysis with Reflex to Cu ltureon 06-18-2021 Bilirubin Urine Negative NEGATIVE [facility] Color, UA Yellow Yellow [facility] Glucose, Ur Negative NEGATIVE [facility] Interpretation and review of laboratory results Abnormal [facility] Ketones Ql (U) Negative NEGATIVE [facility] Leukocyte esterase Test strip Ql (U) Negative NEGATIVE [facility] Nitrite, Urine Negative NEGATIVE [facility] pH, UA 6.0 [facility] Protein, UA Negative NEGATIVE [facility] Specific [place], UA 1.015 [facility] Turbidity UA SLIGHTLY CLOUDY Abnormal Clear [facility] H ealth Urine Hgb 3+ Abnormal NEGATIVE [facility] Urobilinogen, Urine Normal Normal [facility] Urinalysis,Microon 2 ----- Normal [facility] Comment on above: Performed By: #### U AX, UMICAO #### [facility] [address] [place], [place] 82[address]3 Sand Conditioner: To Dey MD Epithelial cells LM Ql (Urine sed) 0 TO 2 Normal 0-5 [facility] Comment on above: Performed By: #### U AX, UMICAO #### [facility] [address] [place], [place] 2651883 Sand Conditioner: To Dey MD Mucus Strands 1+ Abnormal NONE [facility] Comment on above: Performed By: #### U AX, UMICAO #### [facility] [address] [place], [place] 3894283 Sand Conditioner: To Dey MD Urine RBC's 20 TO 50 Normal 0-2 [facility] Comment on above: Performed By: #### U AX, UMICAO #### [facility] [address] [place], [place] 3052083 Sand Conditioner: To Dey MD Urine WBC's 0 TO 2 Normal 0-5 [facility] Comment on above: Performed By: #### U AX, UMICAO #### [facility] [address] [place] [address] Sand Conditioner: To Dey MD MRI FOOT LEFT WO CONTRASTon 06-12-2021 MRI FOOT LEFT WO CONTRAST EXAMINATION: MRI OF THE LEFT FOOT WITHOUT CONTRAST, 06/10/2021 4:11 pm TECHNIQUE: Multiplanar multisequence MRI of the left foot was performed without the administration of intravenous contrast. COMPARISON: None. HISTORY: ORDERING SYSTEM PROVIDED HISTORY: Left foot pain FINDINGS: LISFRANC JOINT: The Lisfranc ligament is intact. Midfoot alignment is within normal limits. BONE MARROW: There is no evidence of acute fracture or dislocation. There is no focal or diffuse marrow replacing process. There is no evidence of stress or stress reaction. GREATER AND LESSER MTP JOINTS: The hallux sesamoids appear located and intact. There is no evidence of plantar plate injury. No significant degenerative features are appreciated. SOFT TISSUES: No interdigital neuroma is appreciated. A focal soft tissue abnormality is not identified. There is a focus of metallic susceptibility artifact along the medial soft tissues of the forefoot. TENDONS: The visualized flexor and extensor tendons are intact. IMPRESSION: No etiology identified to explain left foot pain. Interpreted by: Trey Leiva MD Signed by: Trey Leiva MD 06/12/21 Final result Normal [facility] No etiology identified to explain left foot pain. [facility] EXAMINATION: MRI OF THE LEFT FOOT WITHOUT CONTRAST, 06/10/2021 4:11 pm TECHNIQUE: Multiplanar multisequence MRI of the left foot was performed without the administration of intravenous contrast. COMPARISON: None. HISTORY: ORDERING SYSTEM PROVIDED HISTORY: Left foot pain FINDINGS: LISFRANC JOINT: The Lisfranc ligament is intact. Midfoot alignment is within normal limits. BONE MARROW: There is no evidence of acute fracture or dislocation. There is no focal or diffuse marrow replacing process. There is no evidence of stress or stress reaction. GREATER AND LESSER MTP JOINTS: The hallux sesamoids appear located and intact. There is no evidence of plantar plate injury. No significant degenerative features are appreciated. SOFT TISSUES: No interdigital neuroma is appreciated. A focal soft tissue abnormality is not identified. There is a focus of metallic susceptibility artifact along the medial soft tissues of the forefoot. TENDONS: The visualized flexor and extensor tendons are intact. [facility] Trey Leiva MD - 06/12/2021 EXAMINATION: MRI OF THE LEFT FOOT WITHOUT CONTRAST, 06/10/2021 4:11 pm TECHNIQUE: Multiplanar multisequence MRI of the left foot was performed without the administration of intravenous contrast. COMPARISON: None. HISTORY: ORDERING SYSTEM PROVIDED HISTORY: Left foot pain FINDINGS: LISFRANC JOINT: The Lisfranc ligament is intact. Midfoot alignment is within normal limits. BONE MARROW: There is no evidence of acute fracture or dislocation. There is no focal or diffuse marrow replacing process. There is no evidence of stress or stress reaction. GREATER AND LESSER MTP JOINTS: The hallux sesamoids appear located and intact. There is no evidence of plantar plate injury. No significant degenerative features are appreciated. SOFT TISSUES: No interdigital neuroma is appreciated. A focal soft tissue abnormality is not identified. There is a focus of metallic susceptibility artifact along the medial soft tissues of the forefoot. TENDONS: The visualized flexor and extensor tendons are intact. IMPRESSION: No etiology identified to explain left foot pain. [facility] [employer] Work Phone: MRI FOOT LEFT WO CONTRASTOrd ered By: Trey Stevensr on 06-12-2021 [employer] Phone: MRI FOOT LEFT WO CONTRASTon 06-10-2021 Radiology Study observation (narrative) [employer] Phone: Coding Summary.on 01-18-2019 Coding Summary. CODING DATE: 01/18/2019 FINAL [facility] STATUS: Home (Routine DC) PAYOR: Government APC DESCRIPTION 5521 Level 1 Imaging without Contrast 5025 Level 5 Type A ED Visits ADMIT DX: REASON FOR VISIT DX: R07.9 Chest pain, unspecified M25.512 Pain in left shoulder R11.0 Nausea FINAL DX: PRINCIPAL: R07.9 Chest pain, unspecified SECONDARY: I10 Essential (primary) hypertension F32.9 Major depressive disorder, single episode, unspecified F43.10 Post-traumatic stress disorder, unspecified Z79.899 Other nursing home (current) drug therapy Z87.820 Personal history of traumatic brain injury PYMT PROC APC STAT DESCRIPTION DOCTOR NAME DATE NOTE: The code number assigned matches the documented diagnosis and / or procedure in the patient's chart. However, the narrative phrase printed from the coding software may appear abbreviated, or result in slightly different terminology. Revised Coded By: Asia Cee Revised Date Saved: 01/18/2019 11:33 am Normal [facility] Auto Diffon 01-17-2019 Basophils/100 WBC (Bld) 0.8 % Normal 0.0-2.0 [facility] Comment on above: Order Comment: Order Added by Discern Expert. Performed By: #### 2 703762, 0120264, 91008902, 2168846, 20691566, [id number] #### [facility] [address] [place] [address] Basophils/Leukocytes Auto (Bld) [Pure # fraction] 0.1 E9/L Normal 0.0-0.2 [facility] Comment on above: Order Comment: Order Added by Discern Expert. Performed By: #### 2 998318, 8569542, 48274285, 6624138, 06410253, [id number] #### [facility] [address] [place] [address] Eosinophils/100 WBC (Bld) 4.0 % Normal 0.0-8.0 [facility] Comment on above: Order Comment: Order Added by Discern Expert. Performed By: #### 2 232129, 8689829, 30683299, 8207946, 52881026, 72505494 #### [facility] [address] [place] [address] Eosinophils/Leukocyt es Auto (Bld) [Pure # fraction] 0.3 E9/L Normal 0.0-0.5 [facility] Comment on above: Order Comment: Order Added by Discern Expert. Performed By: #### 2 535194, 7847914, 96953207, 9415932, 94087775, 63143292 #### [facility] [address] [place] [address] Lymphocytes/100 WBC (Bld) 35.1 % Normal 14.0-50.0 [facility] Comment on above: Order Comment: Order Added by Discern Expert. Performed By: #### 2 514744, 6848802, 34911222, 0357835, 42817019, 56366325 #### [facility] [address] [place] [address] Lymphocytes/Leukocyt es Auto (Bld) [Pure # fraction] 3.0 E9/L Normal 1.0-4.0 [facility] Comment on above: Order Comment: Order Added by Discern Expert. Performed By: #### 2 963354, 2720640, 58098119, 1502852, 10812627, 73697007 #### [facility] [address] [place] [address] Monocytes/100 WBC (Bld) 7.4 % Normal 4.0-14.0 [facility] Comment on above: Order Comment: Order Added by Discern Expert. Performed By: #### 2 014048, 2812838, 64228399, 2692152, 98912275, 01703341 #### [facility] [address] [place] [address] Monocytes/Leukocytes Auto (Bld) [Pure # fraction] 0.6 E9/L Normal 0.2-1.0 [facility] Comment on above: Order Comment: Order Added by Discern Expert. Performed By: #### 2 931300, 3587672, 52653879, 4456805, 60319037, 84837883 #### [facility] [address] [place] [address] Neutrophils/100 WBC (Bld) 52.7 % Normal 36.0-75.0 [facility] Comment on above: Order Comment: Order Added by Discern Expert. Performed By: #### 2 145043, 9149620, 19496798, 5870151, 94657182, 29507391 #### [facility] [address] [place] [address] Neutrophils/Leukocyt es Auto (Bld) [Pure # fraction] 4.5 E9/L Normal 2.0-7.5 [facility] Comment on above: Order Comment: Order Added by Discern Expert. Performed By: #### 2 099705, 4236335, 69943205, 4176060, 22496351, 32630782 #### [facility] [address] [place] [address] BMPon 01-17-2019 Creatinine [Mass/Vol] 1.0 mg/dL Normal 0.5-1.3 [facility] Comment on above: Performed By: #### 2 677266, 0828348, 69409746, 4290089, 61681988, 10582151 #### [facility] [address] [place] [address] Urea nitrogen [Mass/Vol] 12 mg/dL Normal 5-21 [facility] Comment on above: Performed By: #### 2 707011, 8076915, 36001210, 8789112, 82777932, 49933244 #### [facility] [address] [place] [address] Urea nitrogen/Creatinine [Mass ratio] 12 No Units Normal 10-20 [facility] Comment on above: Performed By: #### 2 710541, 7570507, 84640578, 9598506, 81392321, 23550337 #### [facility] [address] [place] [address] Anion gap [Moles/Vol] 15 mmol/L Normal 6-16 [facility] Comment on above: Performed By: #### 2 383072, 6119828, 72855799, 0154410, 40078323, 45722303 #### [facility] [address] [place] [address] Calcium [Mass/Vol] 9.6 mg/dL Normal 8.9-11.1 [facility] Comment on above: Performed By: #### 2 667263, 0429476, 35712808, 7677623, 30592094, 92180295 #### [facility] [address] [place] [address] Chloride [Moles/Vol] 105 mmol/L Normal 101-111 [facility] Comment on above: Performed By: #### 2 402901, 8073818, 37047475, 7382455, 08393872, 85029039 #### [facility] [address] [place] [address] CO2 [Moles/Vol] 25 mmol/L Normal 21-31 [facility] Comment on above: Performed By: #### 2 202424, 9490285, 40387138, 1710787, 55891061, 30045918 #### [facility] [address] [place] [address] Glucose [Mass/Vol] 129 mg/dL Normal 55-199 [facility] Comment on above: Result Comment: If t his glucose result represents a fasting glucose, interpretation should refer to the following reference range: 55-99 mg/dL Performed By: #### 2 790449, 2899308, 66527418, 5555631, 91676471, 18869704 #### [facility] [address] [place] [address] Potassium [Moles/Vol] 3.3 mmol/L Low 3.5-5.3 [facility] Comment on above: Performed By: #### 2 609783, 6691136, 33561942, 0422768, 62958818, 22952924 #### [facility] [address] [place] [address] Sodium [Moles/Vol] 142 mmol/L Normal 135-145 [facility] Comment on above: Performed By: #### 2 698780, 3755231, 84853309, 8845765, 94210137, 52628877 #### [facility] [address] [place] [address] CBC w/ Auto Diffon 9 Erythrocyte distribution width (RBC) [Ratio] 13.6 % Normal 10.9-14.2 [facility] Comment on above: Performed By: #### 2 520681, 6638995, 77177543, 3625107, 59320386, 80185922 #### [facility] [address] [place] [address] Hematocrit (Bld) [Volume fraction] 44.5 % Normal 37.7-49.0 [facility] Comment on above: Performed By: #### 2 397471, 2592311, 83216817, 9279602, 56625839, 96676556 #### [facility] [address] [place] [address] Hemoglobin (Bld) [Mass/Vol] 15.6 g/dL Normal 13.5-17.5 [facility] Comment on above: Performed By: #### 2 969050, 9808959, 07246269, 6710881, 44836884, 59960834 #### [facility] [address] [place] [address] MCH (RBC) [Entitic mass] 32.3 pg Normal 27.0-34.0 [facility] Comment on above: Performed By: #### 2 332936, 2450066, 96481365, 5136256, 78929798, 42873505 #### [facility] [address] [place] [address] MCHC (RBC) [Mass/Vol] 35.2 g/dL Normal 33.3-35.7 [facility] Comment on above: Performed By: #### 2 464259, 3543553, 67653976, 5073594, 21881826, 00678915 #### [facility] [address] [place] [address] MCV (RBC) [Entitic vol] 91.8 fL Normal 80.0-100.0 [facility] Comment on above: Performed By: #### 2 643340, 7503194, 58747651, 3165892, 87485505, 68245558 #### [facility] [address] [place] [address] Platelet mean volume (Bld) [Entitic vol] 8.3 fL Normal 6.4-10.8 [facility] Comment on above: Performed By: #### 2 436419, 0624855, 27615944, 3550312, 28047038, 38453698 #### [facility] [address] [place] [address] Platelets (Bld) [#/Vol] 287.0 E9/L Normal 150.0-500.0 [facility] Comment on above: Performed By: #### 2 739990, 5570325, 03545531, 0004397, 26941541, 40268756 #### [facility] [address] [place] [address] RBC (Bld) [#/Vol] 4.8 E12/L Normal 4.3-5.9 [facility] Comment on above: Performed By: #### 2 245828, 7453269, 63166583, 6485792, 79995034, 66083145 #### [facility] [address] [place] [address] WBC corrected for nucl RBC Auto (Bld) [#/Vol] 8.5 E9/L Normal 4.0-11.0 [facility] Comment on above: Performed By: #### 2 593938, 0317039, 75609160, 3205512, 68493433, 01598926 #### [facility] [address] [place] [address] ED Clinical Summaryon 2018 ED Clinical Summary [address] [address] ED Clinical Summary Person Information Name: ABDIEL MANUEL [place] Age: 28 Years : 1990 12:00 AM Sex: Male Language: [place] PCP: RIK NEWTON DO Marital Status: Phone: [phone] Visit Id: Visit Reason: Nausea; Chest pain; CHEST PAIN, MIGRAINES,ARM PAIN Speciality: Acuity: 2 Enc Type: Emergency Med Service: Emergency Arrival: 01/17/2019 2:02 AM Discharge: 01/17/2019 6:37 AM LOS: 000 04:35 Checkin: 01/17/2019 2:02 AM Checkout: 01/17/2019 6:37 AM Dispo Type: Home (Routine DC) EVENTS: Event Name Event Status Request Date/Time Start Date/Time Complete Date/Time Arrive Complete 01/17/2019 2:02 AM 01/17/2019 2:02 AM 01/17/2019 2:02 AM Document Home Meds Request 01/17/2019 2:02 AM Triage Complete 01/17/2019 2:02 AM 01/17/2019 2:18 AM 01/17/2019 2:18 AM EKG Complete 01/17/2019 2:05 AM 01/17/2019 2:11 AM Bed Assign Complete 01/17/2019 2:06 AM 01/17/2019 2:06 AM 01/17/2019 2:[address] Exam Complete 01/17/2019 2:06 AM 01/17/2019 3:10 AM 01/17/2019 3:10 AM RN Exam Complete 01/17/2019 2:06 AM 01/17/2019 2:26 AM 01/17/2019 2:26 AM Pending Labs Request 01/17/2019 2:27 AM Lab Complete 01/17/2019 2:27 AM 01/17/2019 2:59 AM Patient Care Request 01/17/2019 2:27 AM RT Request 01/17/2019 2:27 AM X-Ray Complete 01/17/2019 2:27 AM 01/17/2019 2:27 AM 01/17/2019 3:01 AM Pending Labs Complete 01/17/2019 2:41 AM 01/17/2019 2:41 AM 01/17/2019 2:59 AM Lab Complete 01/17/2019 2:41 AM 01/17/2019 2:41 AM 01/17/2019 2:59 AM Pending Labs Complete 01/17/2019 2:45 AM 01/17/2019 2:45 AM 01/17/2019 2:46 AM Lab Complete 01/17/2019 2:45 AM 01/17/2019 2:45 AM 01/17/2019 2:46 AM Wet Read Request 01/17/2019 3:01 AM Registration Complete 01/17/2019 3:10 AM 01/17/2019 3:40 AM 01/17/2019 3:40 AM Reg Complete Request 01/17/2019 3:40 AM Discharge Complete 01/17/2019 6:31 AM 01/17/2019 6:37 AM 01/17/2019 6:37 AM Transfer Complete 01/17/2019 6:37 AM 01/17/2019 6:37 AM 01/17/2019 6:37 AM ADDRESS: [address] [facility] [id number] PHYS DOC NOTES: MEDICAL INFORMATION: Prescriptions Given: Prescription Display metoclopramide (Reglan 10 mg Tab) 10 mg = 1 tab(s), Oral, QIDACHS, # 28 tab(s), Refills(s) 0, Pharmacy: [facility]/pharmacy #[id number] omeprazole (omeprazole 40 mg Cap-DR) 40 mg = 1 cap(s), Oral, Daily, # 14 cap(s), Refills(s) 0, Pharmacy: [facility]/pharmacy #[id number] Home Meds Display cyclobenzaprine (cyclobenzaprine 10 mg Tab) 10 mg = 1 tab(s), Oral, TID, PRN for spasm, # 30 tab(s), Refills(s) 0 esomeprazole (esomeprazole 20 mg Cap-DR) 20 mg = 1 cap(s), Oral, Daily, Refills(s) 0 mirtazapine (mirtazapine 15 mg Tab) 15 mg = 1 tab(s), Oral, Once a day (at bedtime), Refills(s) 0 prazosin (prazosin 5 mg oral capsule) 5 mg = 1 cap(s), Oral, TID, Refills(s) 0 sumatriptan (SUMAtriptan 50 mg Tab) 50 mg = 1 tab(s), Oral, Once, Refills(s) 0 PATIENT EDUCATION INFORMATION: Instructions: Chest Pain (Nonspecific) Follow up: With: Address: When: [address] [address] [employer] Within 2 to 3 days DIAGNOSIS: 1:Chest pain Normal [facility] ED Note-Physicianon 01-18-20 ED Note-Physician Basic Information Time Seen: Alan Lan MD 01/17/2019 03:10 Chief Complaint c/o chest pain since yesterday, but tonight pain has radiated to his left sholder and arm. c/o nausea but no vomiting. History of Present Illness 28-year-old male presents with a complaint of substernal chest pain. Patient states that the pain started at 11:30 PM while laying in bed. Pain radiated to the left shoulder and there was some tingling in the left hand. He did feel somewhat nauseated with this. There was no shortness of breath. The duration of the pain was about 15 minutes. Patient states over the past several days he's had intermittent chest pain in the same location which was not as prolonged, as severe, or radiating to the left shoulder. He does not have any known heart disease. He does have a history of hypertension. He only knows his mother's history his father's history is unknown. He is not a smoker. Review of Systems Additional ROS info: Except as noted in the above Review of Systems and in the History of Present Illness all other systems have been reviewed and are negative or noncontributory.Unles s otherwise stated in this report the patient's positive and negative responses for review of systems for constitutional, eyes, ENT, cardiovascular, respiratory, gastrointestinal, neurological, , musculoskeletal, and integument systems and related systems to the presenting problem are either stated in the history of present illness or were not pertinent or were negative for the symptoms and/or complaints related to the presenting medical problemOS Physical Exam Vitals & Measurements HR: 92(Monitored) BP: 121/76 SpO2: 94% HT: 175 cm WT: 91.9 kg BMI: 30.01 This is a mildly overweight 28-year-old male he is alert and oriented his skin is warm and dry his color is pink on room air. Chest wall is slightly tender to palpation on the left parasternal margin. Heart is regular without murmur gallop or rub. There is no respiratory guarding. Breath sounds are equal bilaterally. The abdomen is slightly distended soft and nontender. He has strong pulses in his upper extremities. His speech is normal. Medical Decision Making Patient has had 2 sets of cardiac enzymes both within normal limits. The patient's heart score is 2 which puts him at low risk for major event. 2 noncardiac possibilities present. First would be GI as the pain became intense tonight when he was laying down. He did volunteer that laying down seems to aggravate the pain to some degree. There was also associated nausea. The other possibility would be chest wall pain as was fairly sharply localized and there was some mild residual tenderness on palpation. We will target first the stomach rather than the chest wall with some some Prilosec and Reglan for the next several days. He will follow with his family doctor. Assessment/Plan 1. Chest pain Orders: metoclopramide, 10 mg = 1 tab(s), Oral, QIDACHS, # 28 tab(s), Refills(s) 0, Pharmacy: [facility]/pharmacy #[id number] omeprazole, 40 mg = 1 cap(s), Oral, Daily, # 14 cap(s), Refills(s) 0, Pharmacy: [facility]/pharmacy #[id number] Automated Diff Basic Metabolic Panel CBC w/ Auto Diff ECG 12 Lead Adult ED Cardiac Monitoring eGFR Oxygen Saturation Oxygen Therapy PT & PTT Saline Lock Insert Troponin 0 Hr. Troponin 3 Hr. Troponin 6 Hr. Troponin 9 Hr. XR Chest Single View Disposition Plan Patient Discharge Condition Stable Discharge Disposition Home Discharge Prescription List Prescriptions omeprazole 40 mg Cap-DR, 40 mg= 1 cap(s), Oral, Daily Reglan 10 mg Tab, 10 mg= 1 tab(s), Oral, QIDACHS Follow-up With When Contact Information RIK NEWTON Within 2 to 3 days [address] [place] [address]- [facility] (1) Additional Instructions: Patient Education Chest Pain (Nonspecific) Problem List/Past Medical History Ongoing No qualifying data Historical Depression HTN - Hypertension PTSD (post-traumatic stress disorder) TBI (traumatic brain injury) Procedure/Surgical History left knee for meniscus and scar tissue 2007. Medications Inpatient No active inpatient medications Home cyclobenzaprine 10 mg Tab, 10 mg= 1 tab(s), Oral, TID, PRN esomeprazole 20 mg Cap-DR, 20 mg= 1 cap(s), Oral, Daily mirtazapine 15 mg Tab, 15 mg= 1 tab(s), Oral, Once a day (at bedtime) Naprosyn 500 mg Tab, 500 mg= 1 tab(s), Oral, BID, PRN omeprazole 40 mg Cap-DR, 40 mg= 1 cap(s), Oral, Daily prazosin 5 mg oral capsule, 5 mg= 1 cap(s), Oral, TID Reglan 10 mg Tab, 10 mg= 1 tab(s), Oral, QIDACHS SUMAtriptan 50 mg Tab, 50 mg= 1 tab(s), Oral, Once Zoloft 50 mg Tab, 50 mg= 1 tab(s), Oral, Daily Allergies Bee Stings (swelling) Seafood Social History Alcohol - Denies Alcohol Use, 01/17/2019 Substance Abuse - Denies Substance Abuse, 01/17/2019 Tobacco - Denies Tobacco Use, 01/17/2019 Lab Results WBC: 8.5 E9/L (01/17/19 02:35:00 EDT) RBC: 4.8 E12/L (01/17/19 02:35:00 EDT) Hgb: 15.6 gm/dL (01/17/19 02:35:00 EDT) Hct: 44.5 % (01/17/19 02:35:00 EDT) MCV: 91.8 fL (01/17/19 02:35:00 EDT) MCH: 32.3 pg (01/17/19 02:35:00 EDT) MCHC: 35.2 gm/dL (01/17/19 02:35:00 EDT) RDW: 13.6 % (01/17/19 02:35:00 EDT) Platelet: 287 E9/L (01/17/19 02:35:00 EDT) MPV: 8.3 fL (01/17/19 02:35:00 EDT) Neutro Auto: 52.7 % (01/17/19 02:35:00 EDT) Lymph Auto: 35.1 % (01/17/19 02:35:00 EDT) Morrow Auto: 7.4 % (01/17/19 02:35:00 EDT) Eos Auto: 4 % (01/17/19 02:35:00 EDT) Basophil Auto: 0.8 % (01/17/19 02:35:00 EDT) Neutro Absolute: 4.5 E9/L (01/17/19 02:35:00 EDT) Lymph Absolute: 3 E9/L (01/17/19 02:35:00 EDT) Morrow Absolute: 0.6 E9/L (01/17/19 02:35:00 EDT) Eos Absolute: 0.3 E9/L (01/17/19 02:35:00 EDT) Basophil Absolute: 0.1 E9/L (01/17/19 02:35:00 EDT) PT: 10.6 second(s) (01/17/19 02:35:00 EDT) INR: 0.9 (01/17/19 02:35:00 EDT) PTT: 28 second(s) (01/17/19 02:35:00 EDT) Glucose Lvl: 129 mg/dL (01/17/19 02:35:00 EDT) BUN: 12 mg/dL (01/17/19 02:35:00 EDT) Creatinine: 1 mg/dL (01/17/19 02:35:00 EDT) eGFR: >60 (01/17/19 02:35:00 EDT) eGFR AA: >60 (01/17/19 02:35:00 EDT) BUN/Creat Ratio: 12 (01/17/19 02:35:00 EDT) Sodium Lvl: 142 mmol/L (01/17/19 02:35:00 EDT) Potassium Lvl: 3.3 mmol/L Low (01/17/19 02:35:00 EDT) Chloride: 105 mmol/L (01/17/19 02:35:00 EDT) CO2: 25 mmol/L (01/17/19 02:35:00 EDT) AGAP: 15 mEq/L (01/17/19 02:35:00 EDT) Calcium Lvl: 9.6 mg/dL (01/17/19 02:35:00 EDT) Troponin: <0.03 (01/17/19 05:31:00 EDT) Diagnostic Results XR Chest Single View * Preliminary * 01/17/19 05:05:51 NEGATIVE: Platelike atelectasis left base otherwise no active disease Read By: Alan Lan MD EKG Results Sinus rhythm with rate of 95. No acute changes. [facility] Comment on above: Result Comment: Elec tronically Signed By: Alan Lan MD\.br\Date and Time Signed: 01/17/19 06:32 EDT ED Patient Education Noteon 01-17-2019 ED Patient Education Note Family Medicine Chest Pain (Nonspecific) It is often hard to give a specific diagnosis for the cause of chest pain. There is always a chance that your pain could be related to something serious, such as a heart attack or a blood clot in the lungs. You need to follow up with your health care provider for further evaluation. CAUSES ? Heartburn. ? Pneumonia or bronchitis. ? Anxiety or stress. ? Inflammation around your heart (pericarditis) or lung (pleuritis or pleurisy). ? A blood clot in the lung. ? A collapsed lung (pneumothorax). It can develop suddenly on its own (spontaneous pneumothorax) or from trauma to the chest. ? Shingles infection (herpes zoster virus). The chest wall is composed of bones, muscles, and cartilage. Any of these can be the source of the pain. ? The bones can be bruised by injury. ? The muscles or cartilage can be strained by coughing or overwork. ? The cartilage can be affected by inflammation and become sore (costochondritis). DIAGNOSIS Lab tests or other studies may be needed to find the cause of your pain. Your health care provider may have you take a test called an ambulatory electrocardiogram (ECG). An ECG records your heartbeat patterns over a 24-hour period. You may also have other tests, such as: ? Transthoracic echocardiogram (TTE). During echocardiography, sound waves are used to evaluate how blood flows through your heart. ? Transesophageal echocardiogram (ASPEN). ? Cardiac monitoring. This allows your health care provider to monitor your heart rate and rhythm in real time. ? Holter monitor. This is a portable device that records your heartbeat and can help diagnose heart arrhythmias. It allows your health care provider to track your heart activity for several days, if needed. ? Stress tests by exercise or by giving medicine that makes the heart beat faster. TREATMENT ? Treatment depends on what may be causing your chest pain. Treatment may include: ? Acid blockers for heartburn. ? Anti-inflammatory medicine. ? Pain medicine for inflammatory conditions. ? Antibiotics if an infection is present. ? You may be advised to change lifestyle habits. This includes stopping smoking and avoiding alcohol, caffeine, and chocolate. ? You may be advised to keep your head raised (elevated) when sleeping. This reduces the chance of acid going backward from your stomach into your esophagus. Most of the time, nonspecific chest pain will improve within 2?3 days with rest and mild pain medicine. HOME CARE INSTRUCTIONS ? If antibiotics were prescribed, take them as directed. Finish them even if you start to feel better. ? For the next few days, avoid physical activities that bring on chest pain. Continue physical activities as directed. ? Do not use any tobacco products, including cigarettes, chewing tobacco, or electronic cigarettes. ? Avoid drinking alcohol. ? Only take medicine as directed by your health care provider. ? Follow your health care provider's suggestions for further testing if your chest pain does not go away. ? Keep any follow-up appointments you made. If you do not go to an appointment, you could develop lasting (chronic) problems with pain. If there is any problem keeping an appointment, call to reschedule. SEEK MEDICAL CARE IF: ? Your chest pain does not go away, even after treatment. ? You have a rash with blisters on your chest. ? You have a fever. SEEK IMMEDIATE MEDICAL CARE IF: ? You have increased chest pain or pain that spreads to your arm, neck, jaw, back, or abdomen. ? You have shortness of breath. ? You have an increasing cough, or you cough up blood. ? You have severe back or abdominal pain. ? You feel nauseous or vomit. ? You have severe weakness. ? You faint. ? You have chills. This is an emergency. Do not wait to see if the pain will go away. Get medical help at once. Call your local emergency services (911 in [place] Do not drive yourself to the hospital. MAKE SURE YOU: ? Understand these instructions. ? Will watch your condition. ? Will get help right away if you are not doing well or get worse. Document Released: 01/13/2006 Document Revised: 04/10/2014 Document Reviewed: 11/08/2008 ExitCare? Patient Information ?2014 [employer]. This information is not intended to replace advice given to you by your health care provider. Make sure you discuss any questions you have with your health care provider. [facility] ED Patient Summaryon 019 ED Patient Summary [address] [address] Patient Discharge Instructions Person Information Name: ABDIEL MANUEL Age: 28 Years Arrival Date: 01/17/2019 2:02 AM Discharge Diagnosis: 1:Chest pain Primary Care Physician: RIK NEWTON DO Provider Information Primary Provider: Alan Lan MD Advanced Lay Up Operator:None The exam and treatment you received in the Emergency Department were for an urgent problem and are not intended as complete care. It is important that you follow up with a doctor, nurse practitioner, or physician?s molding line assistant for ongoing care. If your symptoms become worse or you do not improve as expected and you are unable to reach your usual health care provider, you should return to the Emergency Department. We are available 24 hours a day. KALEBABDIEL has been given the following list of patient education materials, prescriptions and follow-up instructions: Follow-up Instructions: With: Address: When: RIK NEWTON [address] [place] [address] Business (1) Within 2 to 3 days In the event that this physician does not participate in your insurance network, please consult with your insurance company to find a nearby participating provider. Patient Education Materials: Chest Pain (Nonspecific) A MESSAGE TO ALL PATIENTS REGARDING OPIOIDS PRESCRIPTION OPIOIDS: WHAT YOU NEED TO KNOW Prescription opioids can be used to help relieve hejhdhao-nr-bttcxt pain and are often prescribed following a surgery or injury, or for certain health conditions. These medications can be an important part of the treatment but also come with serious risks. It is important to work with your healthcare provider to make sure you are getting the safest, most effective care. WHAT ARE THE RISKS AND SIDE EFFECTS OF OPIOID USE? Prescription opioids carry serious risks of addiction and overdose, especially with prolonged use. An opioid overdose, often marked by slowed breathing, can cause sudden . The use of prescription opioids can have a number of side effects as well, even when taken as directed: ? Tolerance?meaning you might need to take more of the medication for the same pain relief ? Physical dependence?meaning you have symptoms of withdrawal when a medication is stopped ? Increased sensitivity to pain ? Constipation ? Nausea, vomiting, and dry mouth ? Sleepiness and dizziness ? Confusion ? Depression ? Low levels of testosterone that can result in lower sex drive, energy, and strength ? Itching and sweating RISKS ARE GREATER WITH: ? History of drug misuse, substance use disorder, or overdose ? Mental health conditions (such as depression or anxiety) ? Sleep apnea ? Older age (65 years and older) ? Avoid alcohol while taking prescription opioids. Also, unless specifically advised by your health care provider, medications to avoid include: ? Benzodiazepines (such as Xanax or Valium) ? Muscle relaxants (such as Soma or Flexeril) ? Hypnotics (such as Ambien or Lunesta) ? Other prescription opioids KNOW YOUR OPTIONS Talk to your health care provider about ways to manage your pain that don?t involve prescription opioids. Some of these options may actually work better and have fewer risks and side effects. Options may include: ? Pain relievers such as acetaminophen, ibuprofen, and naproxen ? Some medication that are also used for depression or seizures ? Physical therapy and exercise ? Cognitive behavioral therapy, a psychological, goal-directed approach, in which patients learn how to modify physical, behavioral, and emotional triggers of pain and stress. IF YOU ARE PRESCRIBED OPIOIDS FOR PAIN: ? Never take opioids in greater amounts or more often than prescribed. ? Follow up with your primary health care provider. o Work together to create a plan on how to manage your pain. o Talk about ways to help manage your pain that don?t involve prescription opioids. o Talk about any and all concerns and side effects. ? Help prevent misuse and abuse o Never sell or share prescription opioids. o Never use another person?s prescription opioids. ? Store prescription opioids in a secure place and out of reach of others (this may include visitors, children, friends, and family). ? Safely dispose of unused prescription opioids: Find your community drug take-back program or your pharmacy mail-back program, or flush them down the toilet, following guidance from the Food and Drug Administration (www.fda.gov/Drugs/Re sourcesForYou). ? Visit www.cdc.gov/drugoverd ose to learn about the risks of opioids abuse and overdose. ? If you believe you may be struggling with addiction, tell your health residential caregiver and ask for guidance or call [facility]?S National Helpline at 2-646-321-RFTZ. a Source: [place] Department of Health and Human Services/Center for Disease Control & Prevention [facility] Medications Given: Medication Dose Route No medications found. Medication Information: New Medications [id number], [address] [place], [place] [id number], [phone] metoclopramide (Reglan 10 mg Tab) 1 Tabs By Mouth four times a day (before meals and at bedtime). Refills: 0. omeprazole (omeprazole 40 mg Cap-DR) 1 Capsules By Mouth every day. Refills: 0. Medications to Continue with No Changes Other Medications cyclobenzaprine (cyclobenzaprine 10 mg Tab) 1 Tabs By Mouth 3 times a day as needed for spasm. esomeprazole (esomeprazole 20 mg Cap-DR) 1 Capsules By Mouth every day. mirtazapine (mirtazapine 15 mg Tab) 1 Tabs By Mouth once a day (at bedtime). naproxen (Naprosyn 500 mg Tab) 1 Tabs By Mouth 2 times a day as needed for pain. Refills: 0. prazosin (prazosin 5 mg oral capsule) 1 Capsules By Mouth 3 times a day. sertraline (Zoloft 50 mg Tab) 1 Tabs By Mouth every day. sumatriptan (SUMAtriptan 50 mg Tab) 1 Tabs By Mouth Once. Comment: Pharmacy Information: Thank you for choosing [facility] Patient Education Materials: Chest Pain (Nonspecific) It is often hard to give a specific diagnosis for the cause of chest pain. There is always a chance that your pain could be related to something serious, such as a heart attack or a blood clot in the lungs. You need to follow up with your health care provider for further evaluation. CAUSES ? Heartburn. ? Pneumonia or bronchitis. ? Anxiety or stress. ? Inflammation around your heart (pericarditis) or lung (pleuritis or pleurisy). ? A blood clot in the lung. ? A collapsed lung (pneumothorax). It can develop suddenly on its own (spontaneous pneumothorax) or from trauma to the chest. ? Shingles infection (herpes zoster virus). The chest wall is composed of bones, muscles, and cartilage. Any of these can be the source of the pain. ? The bones can be bruised by injury. ? The muscles or cartilage can be strained by coughing or overwork. ? The cartilage can be affected by inflammation and become sore (costochondritis). DIAGNOSIS Lab tests or other studies may be needed to find the cause of your pain. Your health care provider may have you take a test called an ambulatory electrocardiogram (ECG). An ECG records your heartbeat patterns over a 24-hour period. You may also have other tests, such as: ? Transthoracic echocardiogram (TTE). During echocardiography, sound waves are used to evaluate how blood flows through your heart. ? Transesophageal echocardiogram (ASPEN). ? Cardiac monitoring. This allows your health care provider to monitor your heart rate and rhythm in real time. ? Holter monitor. This is a portable device that records your heartbeat and can help diagnose heart arrhythmias. It allows your health care provider to track your heart activity for several days, if needed. ? Stress tests by exercise or by giving medicine that makes the heart beat faster. TREATMENT ? Treatment depends on what may be causing your chest pain. Treatment may include: ? Acid blockers for heartburn. ? Anti-inflammatory medicine. ? Pain medicine for inflammatory conditions. ? Antibiotics if an infection is present. ? You may be advised to change lifestyle habits. This includes stopping smoking and avoiding alcohol, caffeine, and chocolate. ? You may be advised to keep your head raised (elevated) when sleeping. This reduces the chance of acid going backward from your stomach into your esophagus. Most of the time, nonspecific chest pain will improve within 2?3 days with rest and mild pain medicine. HOME CARE INSTRUCTIONS ? If antibiotics were prescribed, take them as directed. Finish them even if you start to feel better. ? For the next few days, avoid physical activities that bring on chest pain. Continue physical activities as directed. ? Do not use any tobacco products, including cigarettes, chewing tobacco, or electronic cigarettes. ? Avoid drinking alcohol. ? Only take medicine as directed by your health care provider. ? Follow your health care provider's suggestions for further testing if your chest pain does not go away. ? Keep any follow-up appointments you made. If you do not go to an appointment, you could develop lasting (chronic) problems with pain. If there is any problem keeping an appointment, call to reschedule. SEEK MEDICAL CARE IF: ? Your chest pain does not go away, even after treatment. ? You have a rash with blisters on your chest. ? You have a fever. SEEK IMMEDIATE MEDICAL CARE IF: ? You have increased chest pain or pain that spreads to your arm, neck, jaw, back, or abdomen. ? You have shortness of breath. ? You have an increasing cough, or you cough up blood. ? You have severe back or abdominal pain. ? You feel nauseous or vomit. ? You have severe weakness. ? You faint. ? You have chills. This is an emergency. Do not wait to see if the pain will go away. Get medical help at once. Call your local emergency services (911 in [place] Do not drive yourself to the hospital. MAKE SURE YOU: ? Understand these instructions. ? Will watch your condition. ? Will get help right away if you are not doing well or get worse. Document Released: 01/13/2006 Document Revised: 04/10/2014 Document Reviewed: 11/08/2008 ExitCare? Patient Information ?2015 [employer]. This information is not intended to replace advice given to you by your health care provider. Make sure you discuss any questions you have with your health care provider. IKALEB JORDAN J , have received the following patient education materials/instruction s and have verbalized understanding: Patient Education Materials: Chest Pain (Nonspecific) Follow-up Instructions: With: Address: When: RIK NEWTON [address] [place] [address] [facility] (1) Within 2 to 3 days Prescriptions: [metoclopramide (Reglan 10 mg Tab)] [omeprazole (omeprazole 40 mg Cap-DR)] Patient Signature Date Clinician/Nurse Signature Date 01/17/19 06:37:27 [facility] PT & PTTon 01-17-2019 aPTT Coag (PPP) [Time] 28.0 second(s) Normal 25.1-36.5 [facility] Comment on above: Result Comment: Hepa rin therapeutic range (represented by Anti-Factor Xa activity of 0.2 - 0.4 U/mL) corresponds to PTT of 56.6 - 109.0 sec. Performed By: #### 2 [id number] #### [facility] [address] [place] [address] INR Coag (PPP) [Relative time] 0.9 {INR} [facility] Comment on above: Result Comment: INR results are specifically intended to assess patients stabilized on long-term Anticoagulation therapy suggested INR?s ?Less Intensive Anticoagulation? 2.0 ? 3.0 Conventional Range 3.0 ? 4.5 Performed By: #### 2 [id number], [id number] #### [facility] [address] [place] [address] PT Coag (PPP) [Time] 10.6 second(s) Normal 10.2-12.9 [facility] Comment on above: Performed By: #### 2 [id number], [id number] #### [facility] [address] [place] [address] Troponin 0 Hr.on 01-17-2019 Troponin I.cardiac [Mass/Vol] ng/mL Normal <=0.03 [facility] Comment on above: Result Comment: New Troponin Assay 08/31/13 [place] Cutoff value > or = 0.03 ng/mL in conjunction with clinical conditions of myocardial infarction. (www.escardio.org/guidelines) Performed By: #### 2 [id number], [id number], [id number], [id number], [id number] #### [facility] [address] [place] [address] Troponin 3 Hr.on 01-17-2019 Troponin I.cardiac [Mass/Vol] ng/mL Normal <=0.03 [facility] Comment on above: Result Comment: New Troponin Assay 08/31/13 [place] Cutoff value > or = 0.03 ng/mL in conjunction with clinical conditions of myocardial infarction. (www.escardio.org/guidelines) Performed By: #### 1 [id number] #### [facility] [address] [place] [address] XR Chest Single Viewon 01-17 XR Chest Single View Exam Date/Time: 01/17/2019 03:01 EDT Reason for Exam: Chest pain Report IMPRESSION: DENSITY AT THE LEFT LUNG BASE LATERALLY, THAT COULD BE DUE TO EITHER ATELECTASIS OR MINIMAL INFILTRATION. CLINICAL HISTORY: Chest pain. COMMENT: AP portable. The heart is normal in size. The mediastinum is unremarkable. There is a small focal density at the left lung base laterally, and the appearance suggests areas of subsegmental atelectasis or minimal infiltration. No consolidated airspace opacification or pleural effusion is evident. FINAL REPORT Dictated: 01/17/2019 9:18 am Kwame Young M.D. Signed (Electronic Signature): 01/17/2019 9:18 am Signed by: Kwame Young M.D. Transcribed by: BRENT Technologist: FREDIS [facility] eGFRon 01-17-2019 GFR/1.73 sq M predicted among blacks MDRD (S/P/Bld) [Vol rate/Area] mL/min/{1.73_m2} Normal >=59 [facility] Comment on above: Order Comment: Order added by Discern Expert. Result Comment: eGFR is race adjusted. AA=. Performed By: #### 2 [id number], [id number], [id number], [id number] #### [facility] [address] [place] [address] GFR/1.73 sq M predicted among non-blacks MDRD (S/P/Bld) [Vol rate/Area] mL/min/{1.73_m2} Normal >=59 [facility] Comment on above: Order Comment: Order added by Discern Expert. Result Comment: Pharmacy Retail Support Specialist angie kidney disease could be indicated at eGFR's of less than 60 mL/min/1.73m2. Kidney failure is indicated at less than 15 mL/min/1.73m2. Performed By: #### 2 [id number], [id number], [id number], [id number] #### [facility] [address] [place] [address] Vital Signs Date Time Vital Sign Value Performing Clinician Mor horowitz 05-02-2024 16:30-0500 Body temperature 97.3 [degF] Donovan Imeldacarmelo DO Work Phone: [facility] [employer] 05-02-2024 16:30-0500 Diastolic blood pressure 80 mm[Hg] Donovan Chong DO Work Phone: [facility] 05-02-2024 16:30-0500 Heart rate 93 /min Donovan Imeldacarmelo [employer] Work Phone: [facility] 05-02-2024 16:30-0500 SaO2% (BldA) [Mass fraction] 98 % Donovan Chong DO Work Phone: [facility] 05-02-2024 16:30-0500 Systolic blood pressure 122 mm[Hg] Donovan Chong DO Work Phone: [facility] 11-11-2021 13:17-0400 Diastolic blood pressure 59 mm[Hg] Simone Krause Work Phone: [employer] 11-11-2021 13:17-0400 Heart rate 61 /min Simone Krause Work Phone: [facility] [facility] 11-11-2021 13:17-0400 SaO2% (BldA) [Mass fraction] 97 % Simone Krause Work Phone: [facility] 11-11-2021 13:17-0400 Systolic blood pressure 115 mm[Hg] Simone Krause Work Phone: [facility] [facility] 11-11-2021 11:56-0400 Body height 175.3 cm Simone Krause Work Phone: [facility] 11-11-2021 11:56-0400 Body mass index (BMI) [Ratio] 28.06 kg/m2 Simone Krause Work Phone: [facility] 11-11-2021 11:56-0400 Body temperature 97.59 [degF] Simone Krause Work Phone: [facility] [facility] 11-11-2021 11:56-0400 Body weight 86.18 kg Simone Krause Work Phone: [facility] [facility] 11-11-2021 11:56-0400 Respiratory rate 14 /min Simone Krause Work Phone: [facility] 06-26-2021 15:29-0500 Body height 175.3 cm Simone Krause Work Phone: [employer] 06-26-2021 15:29-0500 Body mass index (BMI) [Ratio] 28.06 kg/m2 Simone Krause Work Phone: [facility] 06-26-2021 15:29-0500 Body temperature 97.59 [degF] Simone Krause Work Phone: [facility] 06-26-2021 15:29-0500 Body weight 86.18 kg Simone Krause Work Phone: [facility] 06-26-2021 15:29-0500 Diastolic blood pressure 66 mm[Hg] Simone Krause Work Phone: [facility] 06-26-2021 15:29-0500 Heart rate 55 /min Simone Krause Work Phone: [facility] 06-26-2021 15:29-0500 Respiratory rate 18 /min Simone Krause Work Phone: [facility] 06-26-2021 15:29-0500 SaO2% (BldA) [Mass fraction] 99 % Simone Krause Work Phone: [facility] 06-26-2021 15:29-0500 Systolic blood pressure 109 mm[Hg] Simone Krause Work Phone: [facility] 06-18-2021 19:13-0500 Body temperature 97.3 [degF] Dea Swartz MD Work Phone: [facility] 06-18-2021 19:13-0500 Diastolic blood pressure 71 mm[Hg] Dea Swartz MD Work Phone: [facility] 06-18-2021 19:13-0500 Heart rate 62 /min Dea Swartz MD Work Phone: [facility] 06-18-2021 19:13-0500 Respiratory rate 19 /min Dea Swartz MD Work Phone: [facility] 06-18-2021 19:13-0500 SaO2% (BldA) [Mass fraction] 98 % Dea Swartz MD Work Phone: [facility] 06-18-2021 19:13-0500 Systolic blood pressure 123 mm[Hg] Dea Swartz MD Work Phone: [facility] Encounters Encounter Date Encounter Type Care Provider Facility Start: 05-02-2024 End: 05-02-2024 ambulatory DONOVAN CHONG Not Available Start: 05-02-2024 End: 05-02-2024 Office outpatient visit 25 minutes Donovan Chong DO Work Phone: [facility] Comment on above: Strain of neck muscl e, initial encounter; Cervical paraspinal muscle spasm; Neck pain Start: 11-11-2021 Emergency department patient visit [facility] Start: 11-11-2021 End: 11-11-2021 Emergency department patient visit [facility] [place] Work Phone: [facility] Comment on above: Strain of lumbar reg ion, initial encounter (Primary Dx) Start: 06-26-2021 End: 06-26-2021 Emergency department patient visit [facility] Start: 06-26-2021 End: 06-26-2021 Emergency department patient visit [facility] [place] Work Phone: [facility] Comment on above: Nephrolithiasis (Catrina adria Dx) Start: 06-18-2021 End: 06-18-2021 Emergency department patient visit [facility] Start: 06-18-2021 End: 06-18-2021 Emergency department patient visit Dea Swartz MD Work Phone: [facility] Comment on above: Kidney stone (Primar y Dx) Start: 06-10-2021 End: 06-13-2021 ambulatory [facility] Start: 06-10-2021 End: 06-12-2021 Subsequent hospital visit by physician [facility] MRI Comment on above: Left foot pain Start: 10-06-2020 End: 10-06-[address] LACY PHILIP Facility:H1 Procedures Date Procedure Procedure Detail Performing Clinician Start: 05-02-2024 Radex spine cervical 4 or 5 views Donovan Chong DO Work Phone: Start: 11-11-2021 Radex spine lumbosac ral 2/3 views Mark Massey PA-C Work Phone: Start: 06-26-2021 Comprehensive metabo lic panel Gary Ramos MD Work Phone: Start: 06-26-2021 Ct abdomen & pelvis w/o contrast material Shruti Newton PA-C Work Phone: Start: 06-26-2021 Urnls dip stick/tabl et reagent auto microscopy Gary Ramos MD Work Phone: Start: 06-18-2021 Urinalysis microscop ic only Dea Swartz MD Work Phone: Start: 06-18-2021 Urnls dip stick/tabl et rgnt auto w/o microscopy Dea Swartz MD Work Phone: Start: 06-18-2021 Assay of magnesium Radha Swartz MD Work Phone: Start: 06-18-2021 BASIC METABOLIC PANE L W/ REFLEX TO MG FOR LOW K Dea Swartz MD Work Phone: Start: 06-10-2021 Mri lower extrem oth /thn jt w/o contr matrl Simone Krause Work Phone: Plan of Treatment Date Care Activity Detail Author Start: 12-18-2021 Influenza vaccination Flu vaccine (# 1) [facility] Start: 12-18-2020 Influenza vaccination Flu vaccine (# 1) [facility] Start: 2008 DTaP/Tdap/Td vaccine (1 - Tdap) DTaP/Tdap/Td vaccine (1 - Tdap) [facility] Start: 10-30-2007 Hepatitis C screening Hepatitis C sc gissel [facility] Start: 2004 HIV screening HIV screen [facility] Start: 2001 Depression Screen Depression Screen [facility] Start: 1994 COVID-19 Vaccine (1) COVID-19 Vaccin e (1) [facility] Start: 1990 Varicella vaccine (1 of 2 - 2-dose childhood series) Varicella vaccine (1 of 2 - 2-dose childhood series) [facility] Start: 05-01-1990 COVID-19 Vaccine (#1) COVID-19 Vacci ne (#1) [facility] Start: 1989 Hepatitis C screening Hepatitis C [facility] Payers Date Payer Category Payer Private Health Insurance [employer]N [id number] 2021 Unknown [id number] 2021 Unknown [id number] 1989 Unknown [id number] 173 1989 Unknown [id number] 173 1989 Unknown [id number] 173 1989 Unknown [id number] 173 1989 Unknown [id number] 1989 Unknown [id number] 1259 1989 Unknown [id number] 1259 1959 Unknown [id number] Social History Date Type Detail Facility Tobacco smoking status NHIS Tobacco smoking consumption unknown [employer] Phone: Start: 1990 Sex Assigned At Not on file [facility] Phone: Start: 06-18-2021 End: 11-11-2021 Tobacco smoking status NHIS Never smoked tobacco [employer] Phone: Start: 06-18-2021 End: 11-11-2021 Tobacco use and exposure Smokeless tobacco non-user [employer] Phone: Start: 06-18-2021 End: 11-11-2021 Alcohol intake Current drinker of alcohol (finding) [employer] Phone: Start: 06-18-2021 History SDOH Alcohol Comment Occ [employer] Phone: Start: 11-01-2021 End: 11-11-2021 Exposure to SARS-CoV-2 (event) Not sure [employer] Phone: Gender identity Not on file [facility] History of Present illness Narrative 05-02-2024 Cheryl Dominguez MA - 05/02/2024 4:15 PM EST Note Date & Type Note Facility 05-02-2024 History of Presen t illness Narrative HPI: Historian of HPI: patient Abdiel Manuel is a 33 y.o. male who presents today to the Urgent Care with the following complaints and denials due neck pain which has been present for 4 day(s). C/O Denies Symptom Comments [] [x] swelling [] [x] ecchymosis [] [x] erythema [x] [] tingling Fngers, every once in awhile [x] [] numbness [x] [] Pain radiation [x] [] Weakness [x] [] Decreased ROM [] [x] Trauma Additional Comments: pt has taken motrin OTC medication without relief Pt admits to heat application to the affected area Pt stated the pain started in his neck but now its more his rt shoulder. Pt stated he's been taking flex[facility]il [facility] and it didn't give him any relief. ROS: A complete system ROS was performed and negative aside from the pertinent positives noted in the HPI and PE. Examination General Examination: General Examination: in no acute distress, well developed, well nourished. Head: normocephalic, atraumatic Eyes: sclera non-icteric Neck/Thyroid: no carotid bruit. Decreased ROM all planes due to pain Tenderness and spasm right C3-T2 PVM extending over right trapezius Lymph Nodes: no cervical adenopathy Skin: no rashes Heart: no murmurs, regular rate and rhythm, S1, S2 normal Lungs: clear to auscultation bilaterally Musculoskeletal: Upper extremities FROM Strength testing intact. Jobes sign negative. Hydroblaster strength intact. Extremities: no clubbing, cyanosis, or edema Peripheral Pulses: 2+ radial, 2+ ulnar Neurologic: sensory exam intact to UE Psych: alert, oriented, cognitive function intact, cooperative with exam XR Prelim is normal curve consentient with muscle spasm. HPI, ROS, and PE reviewed and amended by Dr. Donovan Chong as necessary. Written by MALAIKA Mattson 1. Strain of neck muscle, initial encounter Dx and Tx reviewed. Take meds as directed. Moist heat 20 mins on 2 to 4 times a day. - methocarbamol (Robaxin) 750 MG tablet; 1 or 2 at bedtime Dispense: 30 tablet; Refill: 0 - methylPREDNISolone (Medrol Dospak) 4 MG tablets; Follow schedule on package instructions Dispense: 21 tablet; Refill: 0 2. Cervical paraspinal muscle spasm Dx reviewed 3. Neck pain Dx reviewed - XR cervical spine complete 4 to 5 views documented in this encounter [facility] Discharge instructions 11-11-2021 Discharge InstructionsAttachments Note Date & Type Note Facility 11-11-2021 Hospital Discharg e instructions Mark Massey PA-C - 11/11/2021 12:51 PM EDT Follow-up with primary care doctor 7 to 10 days for reevaluation. Avoid movements that worsen your pain. Your next dose of Motrin is at 8 PM tonight as you received a dose of anti-inflammatories in the emergency department. Take Skelaxin as directed. No driving or alcohol with Skelaxin. Promptly return to emergency department for new, changing, worsening of symptoms or other concerns The following attachments cannot be sent through Care Everywhere.Back Pain: Relief: General Info (South Korean)Back: Strain (South Korean)documented in this encounter [employer] [employer] Phone: Hospital Discharge instructions 06-18-2021 Instructions Note Date & Type Note Facility 06-18-2021 Hospital Discharg e instructions Dea Swartz MD - 06/18/2021 Lab discussed with patient. Discharged with pain medication and Zofran for nausea. Symptoms not improving next 3 days patient to return to ED otherwise follow-up with primary care. documented in this encounter [employer] Phone: Evaluation note Note Date & Type Note Facility Evaluation note Diagnosis Left foot pain Pain in limb documented in this encounter [employer] Phone: Evaluation note Note Date & Type Note Facility Evaluation note Diagnosis Kidney stone- Primary Calculus of kidney documented in this encounter [employer] Phone: Evaluation note Note Date & Type Note Facility Evaluation note Diagnosis Nephrolithiasis- Primary Calculus of kidney documented in this encounter [employer] Phone: Evaluation note Note Date & Type Note Facility Evaluation note Diagnosis Strain of lumbar region, initial encounter- Primary documented in this encounter [facility] [employer] Phone: Evaluation note Note Date & Type Note Facility Evaluation note Diagnosis Strain of neck muscle, initial encounter Cervical paraspinal muscle spasm Spasm of muscle Neck pain Cervicalgia documented in this encounter [facility] Discharge instructions Attachments Note Date & Type Note Facility Hospital Discharge instructions The following attachments cannot be sent through Care Everywhere.Kidney Stone (South Korean)documented in this encounter [employer] Work Phone: Summary Purpose Family History No Family History Records FoundNo Family History Records FoundNo Family History Records FoundNo Family History Records Found Advance Directives No Advanced Directives Records FoundNo Advanced Directives Records FoundNo Advanced Directives Records FoundNo Advanced Directives Records Found Reason for Referral Specialty Diagnoses / Procedures [facility] Referred To Contact Radiology Diagnoses Left foot pain Procedures MRI FOOT LEFT WO CONTRAST Simone Krause [address] [place], [place] [id number] Referral ID Status Reason Start Date Expiration Date Visits Re quested Visits Authorized [id number] Closed 05/26/2021 07/25/2021 1 1 Additional Source Comments (unrecognized sect ion and content) No Status Records FoundNo Status Records FoundNo Status Records FoundNo Status Records Found INFORMATION SOURCE (unrecogn ized section and content) DATE [facility] DATE CREATED AUTHOR AUTHOR'S ORGANIZ ATION 11/20/2021 [facility] DATE CREATED AUTHOR AUTHOR'S ORGANIZ ATION 02/20/2022 [facility] DATE CREATED AUTHOR AUTHOR'S ORGANIZ ATION 05/06/2024 [facility] EPIC Reason for Visit (unrecogniz ed section and content) Specialty Diagnoses / Procedures Referred By [facility] Referred To Contact Radiology Diagnoses Left foot pain Procedures MRI FOOT LEFT WO CONTRAST Simone Krause [address] [place] [address] Referral ID Status Reason Start Date Expiration Date Visits Re quested Visits Authorized [id number] Closed 05/26/2021 07/25/2021 1 1 Reason Comments Flank Pain Right side onset few hours ago - hx of kidney stones. Reason Comments Nephrolithiasis Pt reports he has no t been able to pass a kideny stone over the past week. C/o pain in bladder. Reason Comments Back Pain C/o right sided back pain with twisting injury Care Teams (unrecognized sec tion and content) Team Sports Sales Associate Relationship Specialty Start Date End Date Simone Krause [address] [place] [address] PCP - General 06/09/21 [employer] Sales Associate Relationship Specialty Start Date [place] [address] PCP - General 06/09/21 [employer] Sales Associate Relationship Specialty Start Date End Date Simone Krause[address] [place] [address] PCP - General 06/09/21 Ordered Prescriptions (unrec ognized section and content) Prescription Sig Dispensed Refills Start Date End Da te oxyCODONE-acetaminophen (PERCOCET) 5-325 MG per tabletIndications:Kidney stone Take 1 tablet by mouth every 6 hours as needed for Pain for up to 3 days. Intended supply: 3 days. Take lowest dose possible to manage pain 10 tablet 0 06/18/2021 06/21/2021 ondansetron (ZOFRAN ODT) 4 MG disintegrating tablet Take 1 tablet by mouth every 8 hours as needed for Nausea or Vomiting 9 tablet 0 06/18/2021 06/21/2021 Prescription Sig Dispensed Refills Start Date End Da te tamsulosin (FLOMAX) 0.4 MG capsule Take 1 capsule by mouth in the morning and at bedtime for 2 days 4 capsule 0 06/26/2021 06/28/2021 ketorolac (TORADOL) 10 MG tablet Take 1 tablet by mouth every 6 hours as needed for Pain 20 tablet 0 06/26/2021 Prescription Sig Dispensed Refills Start Date End Da te metaxalone (SKELAXIN) 800 MG tablet Take 1 tablet by mouth in the morning and 1 tablet at noon and 1 tablet before bedtime. Do all this for 10 days. 30 tablet 0 11/11/2021 11/21/2021 ibuprofen (ADVIL;MOTRIN) 800 MG tablet Take 1 tablet by mouth every 8 hours as needed for Pain 21 tablet 1 11/11/2021 Scheduled Active and Recently Administ ered Medications (unrecognized section and content) Medication Order 06/16/2021 06/17/2021 06/18/2021 ketorolac (TORADOL) injection 30 mg (COMPLETED) 30 mg, IntraMUSCular, ONCE, On Wed06/18/21 at 2000, For 1 dose, Do not administer for more than 5 days. 2009 (Given - Provid er: Luann Guan RN) prochlorperazine (COMPAZINE) injection 10 mg (COMPLETED) 10 mg, IntraMUSCular, ONCE, On Wed06/18/21 at 2015, For 1 dose 2009 (Given - Provid er: Luann Guan RN) Scheduled Medication Order 06/24/2021 06/25/2021 06/26/2021 0.9 % sodium chloride bolus (COMPLETED) 1,000 mL (11.6 mL/kg), IntraVENous, at 1,000 mL/hr, Administer over 1 Hours, ONCE, On Mahsa 06/26/21 at 1600, For 1 dose 161 (New Bag - Prov ider: Kanchan Chung RN)1743 (Stopped - Provider: Kanchan Chung RN) ketorolac (TORADOL) injection 30 mg (COMPLETED) 30 mg, IntraVENous, ONCE, On Mahsa 06/26/21 at 1600, For 1 dose, Do not administer for more than 5 days. 161 (Given - Provid er: Kanchan Chung RN) Scheduled Medication Order 11/09/2021 11/10/2021 11/11/2021 cyclobenzaprine (FLEXERIL) tablet 5 mg (COMPLETED) 5 mg, Oral, ONCE, 1 dose, On Wed11/11/21 at 1215 1213 (Given - Provid er: Alicia Menard RN) ketorolac (TORADOL) injection 60 mg (COMPLETED) Ketorolac is contraindicated in patients with advanced renal impairment and in patients at risk of renal failure due to volume depletion. For 65 years of age and older OR weight less than 50 kg, use 15 mg IV every 6 hours; MAX dose: 60 mg/day. Dose greater than 30 mg must be administered via intramuscular route. Do not administer for more than 5 days., 60 mg, IntraMUSCular, ONCE, 1 dose, On Wed11/11/21 at 1215, Do not administer for more than 5 days. 1214 (Given - Provid er: Alicia Menard RN) FOR RECORDS PERTAINING TO PATIENTS WHO ARE OR HAVE BEEN ENROLLED IN A CHEMICAL DEPENDENCY/SUBSTANCEABUSE PROGRAM, SOME INFORMATION MAY BE OMITTED. This clinical summary was aggregated from multiple sources. Caution should be exercised in using it in the provision of clinical care. This summary normalizes information from multiple sources, and as a consequence, information in this document may materially change the coding, format and clinical context of patient data. In addition, data may be omitted in some cases. CLINICAL DECISIONS SHOULD BE BASED ON THE PRIMARY CLINICAL RECORDS. [employer] [facility]. provides no warranty or guarantee of the accuracy or completeness of information in this document.
== END 2024-06-19 12:49 | disposition home or self-care (01) ==
LOC: EC 12:49
PROVIDERS: Visit Provider Orthopaedic Surgery
DX: S62.306D Unspecified fracture of fifth metacarpal bone, right hand, subsequent encounter for fracture with routine healing (principal)
CPT/HCPCS: 73130

== ENCOUNTER 2024-06-26 08:00 | Outpatient (OUT) | payer OTHER, SELFPAY ==
--- NOTE | 2024-06-26 | XR_ITS ---
The [address] [address] Patient Name: ARTI MANUEL MRN: [id number] date: 1990 Sex: M Assigned Patient Location: Current Patient Location: Accession/Order Number: [id number] Exam Date: 06/26/2024 11:36 Report Date: 06/26/2024 11:39 At the request of: KRISTA DIAZ MD Procedure: XR hand RT min 3V RIGHT HAND - 3 views CLINICAL DATA: Right hand pain. Follow-up fifth metacarpal fracture. COMPARISON: 06/19/2024 AP, lateral and oblique views were obtained. The cast has been removed. There is redemonstration of a fracture at the neck of the fifth metacarpal with slight apex dorsal lateral angulation. There is also a nondisplaced fracture cleft that extends into the distal shaft of the bone. There is no new fracture or dislocation. There are no significant soft tissue abnormalities. XR/XR hand RT min 3V IMPRESSION: SIMILAR FRACTURE AT THE DISTAL FIFTH METACARPAL. Impression dictated by: Brie Mcgee M.D.06/26/2024 11:39 AM Dictation Location: [place] [address] Electronically authenticated by: [id number] Date: 06/26/2024 11:39
--- OUTSIDE RECORDS SUMMARY | 2024-06-26 08:20 | XMS_ITS | CCD ---
Author Organization [facility] Care Team Providers [place] Worker Name Role Phone Simone Krause Primary Care Provider [phone] SIMONE KRAUSE Primary Care Unavailable DEA SWARTZ [...] Propensity to adverse reactions to drug 2 [facility] (1 source) Bee pollen Drug Allergy 2 [facility] (1 source) Bee pollen Drug allergy (disorder) [facility] (1 source) Shellfish Drug allergy (disorder) [facility] (2 sources) Bee pollen Propensity to adverse reactions 2 [facility] (2 sources) Fish Oils Drug Allergy 3 [facility] Medications Current Medications Medication Drug Class(es) Dates [...] Translations: [Encounter for examination for recruitment to [facility]] Onset: 05-02-2024 05-02-2024 Episodic Anxiety disorders (4 [...] signed and approved by the interpreting radiologist. [facility] Radiology Study observation (narrative) [facility] XR Cervical spine 4 or 5 Vie wsOrdered By: Vishal Love on 05-02-2024 [place] [employer] Work Phone: XR LUMBAR SPINE (2-3 [...] Lang Tirado MD 11/11/21 Final result Normal [facility] [ 1. Straightening of the normal lumbar lordosis which may be related to positioning or spasm. 2. Vertebral body heights and intervertebral disc spaces maintained. [facility] RIS CONSOLIDATED EXAMINATION: THREE XRAY VIEWS OF [...] Visualized portions of the sacroiliac joints maintained. [facility] Lang Walls MD - 11/11/2021 [...] body heights and intervertebral disc spaces maintained. [employer] Work Phone: Radiology Study observation (narrative) [employer] Phone: XR LUMBAR SPINE (2-3 VIEWS)O rdered By: Lang Tirado on 11-11-2021 [employer] Work Phone: CBC with Auto Differentialon 06-26-2021 Absolute Eos # 0.31 [facility] th Absolute Immature Granulocyte <0.03 [facility] [employer] Absolute Lymph # 3.02 [facility] alth Absolute [place] # 0.57 [facility] lt Basophils (Bld) [#/Vol] 0.07 10*3/uL [facility] [employer] Basophils/100 WBC (Bld) 1 % 0 - 2 % [facility] [employer] Eosinophils/100 WBC (Bld) 4 % 1 - 4 % [facility] [employer] Hematocrit (Bld) [Volume fraction] 43.7 % 40.7 - 50.3 % [employer] Hemoglobin.gastroint estinal spec 1 Ql (Stl) 14.9 g/dL 13.0 - 17.0 g/dL [facility] Immature granulocytes/100 WBC (Bld) 0 % 0 [facility] Interpretation and review of laboratory results Abnormal [facility] Lymphocytes/100 WBC (Bld) 44 % High 24 - 43 % [facility] MCH (RBC) [Entitic mass] 31.5 pg 25.2 - 33.5 pg [facility] MCHC (RBC) [Mass/Vol] 34.1 g/dL 28.4 - 34.8 g/dL [facility] MCV (RBC) [Entitic vol] 92.4 fL 82.6 - 102.9 fL [facility] Monocytes/100 WBC (Bld) 8 % 3 - 12 % [facility] NRBC Automated 0.0 0.0 per 100 WBC [facility] Platelet distribution width (Bld) [Ratio] 12.1 % 11.8 - 14.4 % [facility] Platelet mean volume (Bld) [Entitic vol] 9.8 fL 8.1 - 13.5 fL [facility] Platelets (Bld) [#/Vol] 354 10*3/uL [facility] RBC (Bld) [#/Vol] 4.73 10*6/uL 4.21 - 5.7 7 m/uL [facility] Segmented neutrophils/100 WBC (Bld) 43 % 36 - 65 % [facility] Segs Absolute 3.04 [facility] [#/Vol] 7.0 10*3/uL [facility] CBC with Diffon 06-26-2021 Abs. Basophil 0.07 k/uL Normal 0.00-0.20 [facility] Comment on above: Performed By: #### C DP, CP #### [facility] [address] [place] [address] [employer] Operator: To Dey MD Abs.Imm.Granulocyte <0.03 Normal 0.00-0.30 [facility] Comment on above: Performed By: #### C DP, CP #### [facility] [address] [place] [address] [employer]: To Dey MD Abs.Neutrophil (Seg) 3.04 k/uL Normal 1.50-8.10 [facility] Comment on above: Performed By: #### C DP, CP #### [facility] [address] [place] [address] [address] [place], [place] [address] [employer]: To Dey MD Basophils/100 WBC (Bld) 1 % Normal 0-2 [facility] Comment on above: Performed By: #### C DP, CP #### [address] [place], [place] [address] [employer]: To Dey MD Eosinophils (Bld) [#/Vol] 0.31 10*3/uL Normal 0.00-0.44 [facility] Comment on above: Performed By: #### C DP, CP #### [address] [place] [address] [employer]: To Dey MD Eosinophils/100 WBC (Bld) 4 % Normal 1-4 [facility] Comment on above: Performed By: #### C DP, CP #### [address] [place], [facility] [employer]: To Dey MD Erythrocyte distribution width (RBC) [Ratio] 12.1 % Normal 11.8-14.4 [facility] Comment on above: Performed By: #### C DP, CP #### [address] [place], [place] [address] [employer]: To Dey MD Hematocrit (Bld) [Volume fraction] 43.7 % Normal 40.7-50.3 [facility] Comment on above: Performed By: #### C DP, CP #### [address] [place], [facility] [employer] Operator: To Dey MD Hemoglobin (Bld) [Mass/Vol] 14.9 g/dL Normal 13.0-17.0 [facility] Comment on above: Performed By: #### C DP, CP #### [facility] [address] [place], [place] [phone] [employer] Operator: To Dey MD Immature granulocytes/100 WBC (Bld) 0 % Normal 0 [facility] Comment on above: Performed By: #### C DP, CP #### [facility] [address] [place], [place] [id number] [employer]: To Dey MD Lymphocytes (Bld) [#/Vol] 3.02 10*3/uL Normal 1.10-3.70 [facility] Comment on above: Performed By: #### C DP, CP #### [address] [place], [place] 1758483 [employer]: To Dey MD Lymphocytes/100 WBC (Bld) 44 % High 24-43 [facility] Comment on above: Performed By: #### C DP, CP #### [address] [place], [facility] [employer]: To Dey MD MCH (RBC) [Entitic mass] 31.5 pg Normal 25.2-33.5 [facility] Comment on above: Performed By: #### C DP, CP #### [address] [place], [place] 6[address]83 [employer]: To Dey MD MCHC (RBC) [Mass/Vol] 34.1 g/dL Normal 28.4-34.8 [facility] Comment on above: Performed By: #### C DP, CP #### [address] [place], [place] [phone] [employer]: To Dey MD MCV (RBC) [Entitic vol] 92.4 fL Normal 82.6-102.9 [facility] Comment on above: Performed By: #### C DP, CP #### [address] [place], [place] 4445883 [employer]: To Dey MD Monocytes (Bld) [#/Vol] 0.57 10*3/uL Normal 0.10-1.20 [facility] Comment on above: Performed By: #### C DP, CP #### [facility] [address] [place] [address] [employer]: To Dey MD Monocytes/100 WBC (Bld) 8 % Normal 3-12 [facility] Comment on above: Performed By: #### C DP, CP #### [facility] [address] [place] [address] [employer]: To Dey MD Neutrophil (Seg) 43 % Normal 36-65 [facility] Comment on above: Performed By: #### C DP, CP #### [facility] [address] [place], [place] 1596383 [employer]: To Dey MD NRBC Automated 0.0 per 100 WBC Normal 0.0 [facility] Comment on above: Performed By: #### C DP, CP #### [facility] [address] [place], [place] [phone] [employer]: To Dey MD Platelet mean volume (Bld) [Entitic vol] 9.8 fL Normal 8.1-13.5 [facility] Comment on above: Performed By: #### C DP, CP #### [facility] [address] [place], [place] 0963983 [employer]: To Dey MD Platelets (Bld) [#/Vol] 354 10*3/uL Normal 138-453 [facility] Comment on above: Performed By: #### C DP, CP #### [facility] [address] [place] [address] [employer] Operator: To Dey MD RBC (Bld) [#/Vol] 4.73 10*6/uL Normal 4.21-5.77 [facility] Comment on above: Performed By: #### C DP, CP #### [facility] [address] [place] [address] [employer] Operator: To Dey MD WBC (Bld) [#/Vol] 7.0 10*3/uL Normal 3.5-11.3 [facility] Comment on above: Performed By: #### C DP, CP #### [facility] [address] [place], [place] 1117083 [employer] Operator: To Dey MD CT ABDOMEN PELVIS WO [...] by: Canelo Savage 06/26/21 Final result Normal [facility] CT ABDOMEN PELVIS WO CONTRAS T Additional Contrast? Noneon 06-26-2021 A 1-2 mm minimally obstructing calculus was noted at the right UVJ causing very mild right pyelectasis and right ureterectasis. Mild uniform wall thickening of the urinary bladder was noted. The prostate was not enlarged. The wall thickening could be due to cystitis.. [facility] CONSOLIDATED EXAMINATION: CT OF THE [...] contained uncomplicated adipose tissue measuring 2 centimetres. [facility] CONSOLIDATED Canelo Savage - 06/26/2021 [...] wall thickening could be due to cystitis.. [employer] Phone: Radiology Study observation (narrative) [employer] Phone: CT ABDOMEN PELVIS WO CONTRAS T Additional Contrast? NoneOrdered By: Canelo Savage on 06-26-2021 [employer] Phone: Comp Metabolic Profon 2021 (cont.) Normal [facility] Comment on above: Result Comment: Aver age GFR for 30-39 years old: 107 mL/min/1.73sq m Chronic Kidney Disease: <60 mL/min/1.73sq m Kidney failure: <15 mL/min/1.73sq m eGFR calculated using average adult body mass. Additional eGFR calculator available at: http://www.[employer].Topguest/multiple_crcl_2011.htm Performed By: #### C DP, CP #### [facility] [address] [place], [place] [address]83 [employer]: To Dey MD Albumin [Mass/Vol] 4.2 g/dL Normal 3.5-5.2 [facility] Comment on above: Performed By: #### C DP, CP #### [facility] [address] [place], [place] 201[address]83 [employer]: To Dey MD Albumin/Glob Ratio 1.3 Normal 1.0-2.5 [facility] Comment on above: Performed By: #### C DP, CP #### [facility] [address] [place], [place] [phone] [employer] Operator: To Dey MD Alkaline Phos 83 U/L Normal 40-129 [facility] Comment on above: Performed By: #### C DP, CP #### [facility] [address] [place] [address] [employer]: To Dey MD ALT [Catalytic activity/Vol] 23 U/L Normal 5-41 [facility] Comment on above: Performed By: #### C DP, CP #### [address] [place] [address] [employer]: To Dey MD Anion gap [Moles/Vol] 12 mmol/L Normal 9-17 [facility] Comment on above: Performed By: #### C DP, CP #### [facility] [address] [place] [address] [employer]: To Dey MD AST [Catalytic activity/Vol] 17 U/L Normal <40 [facility] Comment on above: Performed By: #### C DP, CP #### [facility] [address] [place], [place] [phone] [employer]: To Dey MD Bilirubin [Mass/Vol] 0.39 mg/dL Normal 0.3-1.2 [facility] Comment on above: Performed By: #### C DP, CP #### [facility] [address] [place], [place] 1470683 [employer]: To Dey MD BUN/CRE Ratio 11 Normal 9-20 [facility] Comment on above: Performed By: #### C DP, CP #### [facility] [address] [place], [place] 9895383 [employer]: To Dey MD Calcium [Mass/Vol] 9.4 mg/dL Normal 8.6-10.4 [facility] Comment on above: Performed By: #### C DP, CP #### [facility] [address] [place], [place] 8799383 [employer] Operator: To Dey MD Chloride [Moles/Vol] 102 mmol/L Normal 98-107 [facility] Comment on above: Performed By: #### C DP, CP #### [facility] [address] [place], [place] 1407383 [employer]: To Dey MD CO2 [Moles/Vol] 23 mmol/L Normal 20-31 [facility] Comment on above: Performed By: #### C DP, CP #### [facility] [address] [place], [place] 0[address]4783 [employer]: To Dey MD Creatinine [Mass/Vol] 1.50 mg/dL High 0.70-1.20 [facility] Comment on above: Performed By: #### C DP, CP #### [facility] [address] [place], [place] 1235883 [employer]: To Dey MD GFR, Amer >60 Normal >60 [facility] Comment on above: Performed By: #### C DP, CP #### [facility] [address] [place], [place] [address]83 [employer]: To Dey MD GFR,non Amer 55 mL/min Low >60 [facility] Comment on above: Performed By: #### C DP, CP #### [facility] [address] [place] [address] [place] [place], [place] [phone] [employer]: To Dey MD Glucose [Mass/Vol] 94 mg/dL Normal 70-99 [facility] Comment on above: Performed By: #### C DP, CP #### [facility] [address] [place], [place] 8775783 [employer] Operator: To Dey MD Potassium [Moles/Vol] 3.5 mmol/L Low 3.7-5.3 [facility] Comment on above: Performed By: #### C DP, CP #### [address] [place], [place] 7671683 [employer]: To Dey MD Protein [Mass/Vol] 7.5 g/dL Normal 6.4-8.3 [facility] Comment on above: Performed By: #### C DP, CP #### [address] [place], [place] [address]83 [employer]: To Dey MD Sodium [Moles/Vol] 137 mmol/L Normal 135-144 [facility] Comment on above: Performed By: #### C DP, CP #### [address] [place], [place] [phone] [employer]: To Dey MD Staging: Normal [facility] Comment on above: Result Comment: Stag e 1: Some kidney damage normal GFR Stage 2: Mild kidney damage GFR 60-89 Stage 3: Moderate kidney damage GFR 30-59 Stage 4: Severe kidney damage GFR 15-29 Stage 5: Severe kidney damage GFR <15 ESRD - chronic treatment by dialysis or transplant Performed By: #### C DP, CP #### [address] [place] [address] [employer]: To Dey MD Urea nitrogen [Mass/Vol] 17 mg/dL Normal 6-20 [facility] Comment on above: Performed By: #### C DP, CP #### [facility] [address] [place] [address] [employer] Operator: To Dey MD Comprehensive Metabolic Pane susanne 06-26-2021 Albumin [Mass/Vol] 4.2 g/dL 3.5 - 5.2 g/dL [facility] Albumin/Globulin [Mass ratio] 1.3 {ratio} [facility] ALP (Bld) [Catalytic activity/Vol] 83 U/L 40 - 129 U/L [facility] ALT [Catalytic activity/Vol] 23 U/L 5 - 41 U/L [facility] Anion gap [Moles/Vol] 12 mmol/L 9 - 17 mmol/L [facility] AST [Catalytic activity/Vol] 17 U/L <40 [facility] Bilirubin [Mass/Vol] 0.39 mg/dL 0.3 - 1 .2 mg/dL [facility] Calcium [Mass/Vol] 9.4 mg/dL 8.6 - 10. 4 mg/dL [facility] Chloride [Moles/Vol] 102 mmol/L 98 - 10 7 mmol/L [facility] CO2 [Moles/Vol] 23 mmol/L 20 - 31 mmol/L [facility] Creatinine [Mass/Vol] 1.5 mg/dL High 0.70 - 1.20 mg/dL [facility] Free PSA/Total PSA [Mass fraction] 7.5 g/dL 6.4 - 8.3 g/dL [facility] GFR >60 >60 mL/min [facility] GFR Non- 55 mL/min Low >60 [facility] Glucose [Mass/Vol] 94 mg/dL 70 - 99 mg/dL [facility] Interpretation and review of laboratory results Abnormal [facility] Potassium [Moles/Vol] 3.5 mmol/L Low 3.7 - 5.3 mmol/L [facility] Sodium [Moles/Vol] 137 mmol/L 135 - 144 mmol/L [facility] Urea nitrogen (BldV) [Mass/Vol] 17 mg/dL 6 - 20 mg/dL [facility] Urea nitrogen/Creatinine (Bld) [Mass ratio] 11 [facility] - Chemistry and C hemistry - challengeon 06-26-2021 GFR/1.73 sq M.predicted MDRD (S/P/Bld) [Vol rate/Area] [facility] Comment on above: Average GFR for 30-3 9 years old: 107 mL/min/1.73sq m Chronic Kidney Disease: <60 mL/min/1.73sq m Kidney failure: <15 mL/min/1.73sq m eGFR calculated using average adult body mass. Additional eGFR calculator available at: http://www.[employer]/multiple_crcl_2012.htm Stage 1: Some kidney damage normal GFR Stage 2: Mild kidney damage GFR 60-89 Stage 3: Moderate kidney damage GFR 30-59 Stage 4: Severe kidney damage GFR 15-29 Stage 5: Severe kidney damage GFR <15 ESRD - chronic treatment by dialysis or transplant Urinalysis w/ Microon 2021 ----- Normal [facility] Comment on above: Performed By: #### U AMIC #### [facility] [address] [place] [address] [employer] Operator: To Dey MD Bacteria TRACE Abnormal NONE [facility] Comment on above: Performed By: #### U AMIC #### [facility] [address] [place] [address] [employer] Operator: To Dey MD Bilirubin, SemiQt,Ur Negative Normal NEG [facility] Comment on above: Performed By: #### U AMIC #### [facility] [address] [place] [address] [employer] Operator: To Dey MD Blood, Urine 1+ Abnormal NEG [facility] Comment on above: Performed By: #### U AMIC #### [facility] [address] [place] [address] [employer] Operator: To Dey MD Clarity (U) Clear Normal CLEAR [facility] Comment on above: Performed By: #### U AMIC #### [facility] [address] [place], [place] 2897083 [employer] Operator: To Dey MD Color (U) Yellow Normal YEL [facility] Comment on above: Performed By: #### U AMIC #### [facility] [address] [place], [place] 3493883 [employer]: To Dey MD Epithelial cells LM Ql (Urine sed) 0 TO 2 Normal 0-5 [facility] Comment on above: Performed By: #### U AMIC #### [address] [place], [place] 2376383 [employer] Operator: To Dey MD Glucose Ql (U) Negative Normal NEG [facility] Comment on above: Performed By: #### U AMIC #### [facility] [address] [place] [address] [place] [place], [place] [phone] [employer]: To Dey MD Ketones Ql (U) Negative Normal NEG [facility] Comment on above: Performed By: #### U AMIC #### [address] [place], [place] 1355783 [employer]: To Dey MD Leukocyte esterase Test strip Ql (U) Negative Normal NEG [facility] Comment on above: Performed By: #### U AMIC #### [address] [place], [place] 3043183 [employer]: To Dey MD Nitrite,Ur Negative Normal NEG [facility] Comment on above: Performed By: #### U AMIC #### [address] [place] [address] [employer]: To Dey MD PH,Ur 7.0 Normal 5.0-9.0 [facility] Comment on above: Performed By: #### U AMIC #### [address] [place] [phone] [employer]: To Dey MD Protein Ql (U) Negative Normal NEG [facility] Comment on above: Performed By: #### U AMIC #### [facility] [address] [place] [address] [employer]: To Dey MD Spec. Pooler,Ur 1.015 Normal 1.010-1.020 [facility] Comment on above: Performed By: #### U AMIC #### [facility] [address] [place] [address] [employer]: To Dey MD Urine RBC's 2 TO 5 Normal 0-2 [facility] Comment on above: Performed By: #### U AMIC #### [facility] [address] [place], [place] 4[address] [employer]: To Dey MD Urine WBC's 2 TO 5 Normal 0-5 [facility] Comment on above: Performed By: #### U AMIC #### [facility] [address] [place] [address] [place] [address] [employer]: To eDy MD Urobilinogen,Ur Normal Normal NORM [facility] Comment on above: Performed By: #### U AMIC #### [facility] [address] [place] [address] [employer]: To Dey MD Urinalysis with Microscopico n 06-26-2021 - [facility] Bacteria, UA TRACE Abnormal None [facility] Bilirubin Urine Negative NEGATIVE [facility] Color, UA Yellow Yellow [facility] Epithelial Cells UA 0 TO 2 [facility] Glucose, Ur Negative NEGATIVE [facility] Interpretation and review of laboratory results Abnormal [facility] Ketones Ql (U) Negative NEGATIVE [facility] Leukocyte esterase Test strip Ql (U) Negative NEGATIVE [facility] Nitrite, Urine Negative NEGATIVE [facility] pH, UA 7.0 [facility] Protein, UA Negative NEGATIVE [facility] RBC, UA 2 TO 5 [facility] Specific Pooler, UA 1.015 [facility] Turbidity UA Clear Clear [facility] Urine Hgb 1+ Abnormal NEGATIVE [facility] Urobilinogen, Urine Normal Normal [facility] WBC, UA 2 TO 5 [facility] Basic Metab w/rfx MGon 06-18 Potassium [Moles/Vol] 3.3 mmol/L Low 3.7-5.3 [facility] Comment on above: Performed By: #### Luis Chen, BMPX #### [facility] [address] [place] [address] [employer] Operator: To Dey MD (cont.) [facility] Comment on above: Result Comment: Aver age GFR for 30-39 years old: 107 mL/min/1.73sq m Chronic Kidney Disease: <60 mL/min/1.73sq m Kidney failure: <15 mL/min/1.73sq m eGFR calculated using average adult body mass. Additional eGFR calculator available at: http://www.[employer].Topguest/multiple_crcl_2012.htm Performed By: #### Luis Chen, BMPX #### [facility] [address] [place] [address] [employer]: To Dey MD Anion gap [Moles/Vol] 11 mmol/L Normal - [facility] Comment on above: Performed By: #### Luis Chen, BMPX #### [facility] [address] [place] [address] [employer]: To Dey MD BUN/CRE Ratio 16 Normal - [facility] Comment on above: Performed By: #### Luis Chen, BMPX #### [facility] [address] [place] [address] [employer]: To Dey MD Calcium [Mass/Vol] 9.4 mg/dL Normal 8.6-10.4 [facility] Comment on above: Performed By: #### Luis Chen, BMPX #### [facility] [address] [place], [place] [phone] [employer]: To Dey MD Chloride [Moles/Vol] 108 mmol/L High 98-107 [facility] Comment on above: Performed By: #### M G, BMPX #### [facility] [address] [place], [place] [phone] [employer]: To Dey MD CO2 [Moles/Vol] 20 mmol/L Normal 20-31 [facility] Comment on above: Performed By: #### M G, BMPX #### [facility] [address] [place], [place] [id number] [employer] Operator: To Dey MD Creatinine [Mass/Vol] 1.11 mg/dL Normal 0.70-1.20 [facility] Comment on above: Performed By: #### M April, BMPX #### [facility] [address] [place], [place] [id number] [employer] Operator: To Dey MD GFR, Amer >60 Normal >60 [facility] Comment on above: Performed By: #### Luis Chen, BMPX #### [facility] [address] [place], [place] 599[address]83 [employer] Operator: To Dey MD GFR,non Amer >60 Normal >60 [facility] Comment on above: Performed By: #### M April, BMPX #### [facility] [address] [place], [place] 0038683 [employer] Operator: To Dey MD Glucose [Mass/Vol] 109 mg/dL High 70-99 [facility] Comment on above: Performed By: #### M G, BMPX #### [facility] [address] [place], [place] 4568383 [employer] Operator: To Dey MD Sodium [Moles/Vol] 139 mmol/L Normal 135-144 [facility] Comment on above: Performed By: #### M G, BMPX #### [facility] [address] [place] [address] [employer] Operator: To Dey MD Staging: Normal [facility] Comment on above: Result Comment: Stag e 1: Some kidney damage normal GFR Stage 2: Mild kidney damage GFR 60-89 Stage 3: Moderate kidney damage GFR 30-59 Stage 4: Severe kidney damage GFR 15-29 Stage 5: Severe kidney damage GFR <15 ESRD - chronic treatment by dialysis or transplant Performed By: #### M G, BMPX #### [facility] [address] [place] [address] [employer] Operator: To Dey MD Urea nitrogen [Mass/Vol] 18 mg/dL Normal 6-20 [facility] Comment on above: Performed By: #### M G, BMPX #### [facility] [address] [place] [address] [employer] Operator: To Dey MD Basic Metabolic Panel w/ Ref jesusita to MGon 06-18-2021 Anion gap [Moles/Vol] 11 mmol/L 9 - 17 mmol/L [facility] Calcium [Mass/Vol] 9.4 mg/dL 8.6 - 10. 4 mg/dL [facility] Chloride [Moles/Vol] 108 mmol/L High 98 - 10 7 mmol/L [facility] CO2 [Moles/Vol] 20 mmol/L 20 - 31 mmol/L [facility] Creatinine [Mass/Vol] 1.11 mg/dL 0.70 - 1.20 mg/dL [facility] GFR >60 >60 mL/min [facility] GFR Non- >60 >60 mL/min [facility] Glucose [Mass/Vol] 109 mg/dL High 70 - 99 mg/dL [facility] Interpretation and review of laboratory results Abnormal [facility] Potassium [Moles/Vol] 3.3 mmol/L Low 3.7 - 5.3 mmol/L [facility] Sodium [Moles/Vol] 139 mmol/L 135 - 144 mmol/L [facility] Urea nitrogen (BldV) [Mass/Vol] 18 mg/dL 6 - 20 mg/dL [facility] Urea nitrogen/Creatinine (Bld) [Mass ratio] 16 [facility] - Chemistry and C hemistry - challengeon 06-18-2021 GFR/1.73 sq M.predicted MDRD (S/P/Bld) [Vol rate/Area] [facility] Comment on above: Average GFR for 30-3 9 years old: 107 mL/min/1.73sq m Chronic Kidney Disease: <60 mL/min/1.73sq m Kidney failure: <15 mL/min/1.73sq m eGFR calculated using average adult body mass. Additional eGFR calculator available at: http://www.[employer]/multiple_crcl_2012.htm Stage 1: Some kidney damage normal GFR Stage 2: Mild kidney damage GFR 60-89 Stage 3: Moderate kidney damage GFR 30-59 Stage 4: Severe kidney damage GFR 15-29 Stage 5: Severe kidney damage GFR <15 ESRD - chronic treatment by dialysis or transplant Magnesiumon 06-18-2021 Magnesium [Mass/Vol] 2.2 mg/dL Normal 1.6-2.6 [facility] Comment on above: Performed By: #### M G, BMPX #### [facility] [address] [place] [address] [employer] Operator: To Dey MD Magnesium [Mass/Vol] 2.2 mg/dL 1.6 - 2 .6 mg/dL [facility] Microscopic Urinalysison - [facility] Epithelial Cells UA 0 TO 2 [facility] Interpretation and review of laboratory results Abnormal [facility] Mucus, UA 1+ Abnormal None [facility] RBC, UA 20 TO 50 [facility] WBC, UA 0 TO 2 [facility] UA w/Reflex Cultureon 2021 Bilirubin, SemiQt,Ur Negative Normal NEG [facility] Comment on above: Performed By: #### VALENCIA HIGGINS #### [facility] [address] [place] [address] [employer] Hammer Operator: To Dey MD Blood, Urine 3+ Abnormal NEG [facility] Comment on above: Performed By: #### U REX HERRMANNICAO #### [facility] [address] [place] [address] [place] [place], [place] [phone] [employer] Operator: oT Dey MD Clarity (U) SLIGHTLY CLOUDY Abnormal CLEAR [facility] Comment on above: Performed By: #### U AX, UMICAO #### [address] [place], [place] [phone] [employer] Operator: To Dye MD Color (U) Yellow Normal YEL [facility] Comment on above: Performed By: #### U AX, UMICAO #### [address] [place] [address] [employer] Operator: To Dey MD Glucose Ql (U) Negative Normal NEG [facility] Comment on above: Performed By: #### U AX, UMICAO #### [address] [place], [place] [id number] [employer] Operator: To Dey MD Ketones Ql (U) Negative Normal NEG [facility] Comment on above: Performed By: #### U AX, UMICAO #### [address] [place] [address] [employer] Operator: To Dey MD Leukocyte esterase Test strip Ql (U) Negative Normal NEG [facility] Comment on above: Performed By: #### U AX, UMICAO #### [facility] [address] [place] [address] [place]. [place], [place] 5503683 [employer] Operator: To Dey MD Nitrite,Ur Negative Normal NEG [facility] Comment on above: Performed By: #### U AX, UMICAO #### [address] [place], [place] 2028283 [employer] Operator: To Dey MD PH,Ur 6.0 Normal 5.0-9.0 [facility] Comment on above: Performed By: #### U AX, UMICAO #### [facility] [address] [place], [place] 697[address]83 [employer] Operator: To Dey MD Protein Ql (U) Negative Normal NEG [facility] Comment on above: Performed By: #### U AX, UMICAO #### [facility] [address] [place], [place] 44[address]83 [employer] Hammer Operator: To Dey MD Spec. Pooler,Ur 1.015 Normal 1.010-1.020 [facility] Comment on above: Performed By: #### U AX, UMICAO #### [facility] [address] [place] [address] [place] [place], [place] 4999183 [employer] Operator: To Dey MD Urobilinogen,Ur Normal Normal NORM [facility] Comment on above: Performed By: #### U AX, UMICAO #### [facility] [address] [place] [address] Dr. [place], [facility] Black[employer] Hammer Operator: To Dey MD Urinalysis with Reflex to Cu ltureon 06-18-2021 Bilirubin Urine Negative NEGATIVE [facility] Color, UA Yellow Yellow [facility] Glucose, Ur Negative NEGATIVE [facility] Interpretation and review of laboratory results Abnormal [facility] Ketones Ql (U) Negative NEGATIVE [facility] Leukocyte esterase Test strip Ql (U) Negative NEGATIVE [facility] Nitrite, Urine Negative NEGATIVE [facility] pH, UA 6.0 [facility] Protein, UA Negative NEGATIVE [facility] Specific Pooler, UA 1.015 [facility] Turbidity UA SLIGHTLY CLOUDY Abnormal Clear [facility] Urine Hgb 3+ Abnormal NEGATIVE [facility] Urobilinogen, Urine Normal Normal [facility] Urinalysis,Microon 2 ----- Normal [facility] Comment on above: Performed By: #### U AX, UMICAO #### [facility] [address] [place], [place] 0789383 [employer] Hammer Operator: To Dey MD Epithelial cells LM Ql (Urine sed) 0 TO 2 Normal 0-5 [facility] Comment on above: Performed By: #### U AX, UMICAO #### [facility] [address] [place], [place] 9948683 [employer] Hammer Operator: To Dey MD Mucus Strands 1+ Abnormal NONE [facility] Comment on above: Performed By: #### U AX, UMICAO #### [facility] [address] [place], [place] 0514183 [employer] Hammer Operator: To Dey MD Urine RBC's 20 TO 50 Normal 0-2 [facility] Comment on above: Performed By: #### U AX, UMICAO #### [facility] [address] [place], [place] 0092583 [employer] Hammer Operator: To Dey MD Urine WBC's 0 TO 2 Normal 0-5 [facility] Comment on above: Performed By: #### U AX, UMICAO #### [facility] [address] [place] [address] [employer] Hammer Operator: To Dey MD MRI FOOT LEFT WO [...] Trey Leiva MD 06/12/21 Final result Normal [facility] No etiology identified to explain left foot pain. [facility] EXAMINATION: MRI OF THE [...] visualized flexor and extensor tendons are intact. [facility] Trey Leiva MD - [...] etiology identified to explain left foot pain. [facility] [employer] Phone: MRI FOOT LEFT WO CONTRASTOrd ered By: Trey Stevensr on 06-12-2021 [employer] Phone: MRI FOOT LEFT WO CONTRASTon 06-10-2021 Radiology Study observation (narrative) [employer] Phone: Coding Summary.on 01-18-2019 Coding Summary. 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 Performed By: #### 2 818457, 3122915, 46840347, 5069801, 66935774, [id number] #### [facility] [address] [place] [address] Basophils/Leukocytes Auto (Bld) [Pure # fraction] 0.1 E9/L Normal 0.0-0.2 [facility] Comment on above: Order Comment: Order Added by Discern Expert. Performed By: #### 2 135651, 4411426, 78136693, 3554873, 51693693, 69760924 #### [facility] [address] [place] [address] Eosinophils/100 WBC (Bld) 4.0 % Normal 0.0-8.0 [facility] Comment on above: Order Comment: Order Added by Discern Expert. Performed By: #### 2 238268, 8444389, 30774957, 3250020, 86040415, 86800497 #### [facility] [address] [place] [address] Eosinophils/Leukocyt es Auto (Bld) [Pure # fraction] 0.3 E9/L Normal 0.0-0.5 [facility] Comment on above: Order Comment: Order Added by Discern Expert. Performed By: #### 2 706048, 3929874, 03954284, 1314458, 40235667, 75805358 #### [facility] [address] [place] [address] Lymphocytes/100 WBC (Bld) 35.1 % Normal 14.0-50.0 [facility] Comment on above: Order Comment: Order Added by Discern Expert. Performed By: #### 2 571057, 5382537, 63361968, 7968468, 32020153, 09153629 #### [facility] [address] [place] [address] Lymphocytes/Leukocyt es Auto (Bld) [Pure # fraction] 3.0 E9/L Normal 1.0-4.0 [facility] Comment on above: Order Comment: Order Added by Discern Expert. Performed By: #### 2 757993, 9176100, 77891842, 1077297, 66113893, 48686972 #### [facility] [address] [place] [address] Monocytes/100 WBC (Bld) 7.4 % Normal 4.0-14.0 [facility] Comment on above: Order Comment: Order Added by Discern Expert. Performed By: #### 2 892840, 0550746, 71987447, 4008625, 81935429, 52259705 #### [facility] [address] [place] [address] Monocytes/Leukocytes Auto (Bld) [Pure # fraction] 0.6 E9/L Normal 0.2-1.0 [facility] Comment on above: Order Comment: Order Added by Discern Expert. Performed By: #### 2 600373, 4431716, 47723547, 2251499, 85528894, 56852723 #### [facility] [address] [place] [address] Neutrophils/100 WBC (Bld) 52.7 % Normal 36.0-75.0 [facility] Comment on above: Order Comment: Order Added by Discern Expert. Performed By: #### 2 079438, 0308401, 73125838, 6405946, 09402082, 03933686 #### [facility] [address] [place] [address] Neutrophils/Leukocyt es Auto (Bld) [Pure # fraction] 4.5 E9/L Normal 2.0-7.5 [facility] Comment on above: Order Comment: Order Added by Discern Expert. Performed By: #### 2 362183, 4123060, 93434014, 6405682, 93796193, 32299272 #### [facility] [address] [place] [address] BMPon 01-17-2019 Creatinine [Mass/Vol] 1.0 mg/dL Normal 0.5-1.3 [facility] Comment on above: Performed By: #### 2 187199, 3973961, 09872308, 6364393, 27036340, 22214027 #### [facility] [address] [place] [address] Urea nitrogen [Mass/Vol] 12 mg/dL Normal 5-21 [facility] Comment on above: Performed By: #### 2 892552, 4103531, 65124995, 2909457, 69697894, 69601032 #### [facility] [address] [place] [address] Urea nitrogen/Creatinine [Mass ratio] 12 No Units Normal 10-20 [facility] Comment on above: Performed By: #### 2 348840, 4658819, 01823428, 9844858, 27088967, 88911158 #### [facility] [address] [place] [address] Anion gap [Moles/Vol] 15 mmol/L Normal 6-16 [facility] Comment on above: Performed By: #### 2 725708, 4656092, 97511095, 9970424, 85404080, 74015447 #### [facility] [address] [place] [address] Calcium [Mass/Vol] 9.6 mg/dL Normal 8.9-11.1 [facility] Comment on above: Performed By: #### 2 903097, 9078671, 87233133, 9539378, 83926925, 53279487 #### [facility] [address] [place] [address] Chloride [Moles/Vol] 105 mmol/L Normal 101-111 [facility] Comment on above: Performed By: #### 2 844087, 7487863, 10233085, 3763235, 86558133, 04568098 #### [facility] [address] [place] [address] CO2 [Moles/Vol] 25 mmol/L Normal 21-31 [facility] Comment on above: Performed By: #### 2 296163, 9872041, 41475828, 1554749, 23089441, 43279169 #### [facility] [address] [place] [address] Glucose [Mass/Vol] 129 mg/dL Normal 55-199 [facility] Comment on above: Result Comment: If t his glucose result represents a fasting glucose, interpretation should refer to the following reference range: 55-99 mg/dL Performed By: #### 2 148878, 7456486, 08107694, 0387630, 48143661, 76313180 #### [facility] [address] [place] [address] Potassium [Moles/Vol] 3.3 mmol/L Low 3.5-5.3 [facility] Comment on above: Performed By: #### 2 862988, 3686799, 12102121, 8470503, 10352417, 84049633 #### [facility] [address] [place] [address] Sodium [Moles/Vol] 142 mmol/L Normal 135-145 [facility] Comment on above: Performed By: #### 2 395652, 4518290, 03657521, 2517415, 39305519, 30490509 #### [facility] [address] [place] [address] CBC w/ Auto Diffon 9 Erythrocyte distribution width (RBC) [Ratio] 13.6 % Normal 10.9-14.2 [facility] Comment on above: Performed By: #### 2 607613, 1334438, 48391324, 6645902, 65884920, 20438967 #### [facility] [address] [place] [address] Hematocrit (Bld) [Volume fraction] 44.5 % Normal 37.7-49.0 [facility] Comment on above: Performed By: #### 2 069576, 8469202, 62962032, 7987825, 16431258, 19473029 #### [facility] [address] [place] [address] Hemoglobin (Bld) [Mass/Vol] 15.6 g/dL Normal 13.5-17.5 [facility] Comment on above: Performed By: #### 2 003957, 2504559, 06935127, 6523209, 55308064, 04068956 #### [facility] [address] [place] [address] MCH (RBC) [Entitic mass] 32.3 pg Normal 27.0-34.0 [facility] Comment on above: Performed By: #### 2 873608, 2681864, 34541681, 8197262, 91836627, 32248070 #### [facility] [address] [place] [address] MCHC (RBC) [Mass/Vol] 35.2 g/dL Normal 33.3-35.7 [facility] Comment on above: Performed By: #### 2 286447, 2732888, 04927492, 5546003, 81775089, 72897189 #### [facility] [address] [place] [address] MCV (RBC) [Entitic vol] 91.8 fL Normal 80.0-100.0 [facility] Comment on above: Performed By: #### 2 077546, 7633683, 32247636, 5382361, 92480665, 98884762 #### [facility] [address] [place] [address] Platelet mean volume (Bld) [Entitic vol] 8.3 fL Normal 6.4-10.8 [facility] Comment on above: Performed By: #### 2 202042, 2980112, 54915382, 2739615, 27757066, 25098779 #### [facility] [address] [place] [address] Platelets (Bld) [#/Vol] 287.0 E9/L Normal 150.0-500.0 [facility] Comment on above: Performed By: #### 2 982228, 0393714, 96147053, 9908483, 41641274, 95764517 #### [facility] [address] [place] [address] RBC (Bld) [#/Vol] 4.8 E12/L Normal 4.3-5.9 [facility] Comment on above: Performed By: #### 2 909057, 2545581, 78116968, 2600284, 32806580, 22054900 #### [facility] [address] [place] [address] WBC corrected for nucl RBC Auto (Bld) [#/Vol] 8.5 E9/L Normal 4.0-11.0 [facility] Comment on above: Performed By: #### 2 256084, 6282690, 78556324, 8089378, 15911005, 19851384 #### [facility] [address] [place] [address] ED Clinical Summaryon 2018 ED Clinical Summary [address] [address] ED Clinical Summary Person Information Name: ABDIEL MANUEL [place] Age: 28 Years : 1990 12:00 AM Sex: Male Language: Lebanese PCP: RIK NEWTON DO Marital Status: Phone: [phone] Visit Id: Visit Reason: Nausea; Chest pain; [...] 6:37 AM 01/17/2019 6:37 AM ADDRESS: [address] [facility] [id number] PHYS DOC NOTES: MEDICAL INFORMATION: Prescriptions Given: Prescription Display metoclopramide (Reglan 10 mg Tab) 10 mg = 1 tab(s), Oral, QIDACHS, # 28 tab(s), Refills(s) 0, Pharmacy: [facility]/pharmacy #[id number] omeprazole (omeprazole 40 mg Cap-DR) 40 mg = 1 cap(s), Oral, Daily, # 14 cap(s), Refills(s) 0, Pharmacy: [facility]/pharmacy #[id number] Home Meds Display cyclobenzaprine (cyclobenzaprine 10 [...] With: Address: When: [place] [address] [employer] Within 2 to 3 days DIAGNOSIS: 1:Chest pain Normal [facility] ED Note-Physicianon 01-18-20 ED Note-Physician Basic Information [...] QIDACHS, # 28 tab(s), Refills(s) 0, Pharmacy: [facility]/pharmacy #[id number] omeprazole, 40 mg = 1 cap(s), [...] Within 2 to 3 days [address] [place] [address]- [facility] (1) Additional Instructions: Patient Education Chest Pain [...] Lymph Auto: 35.1 % (01/17/19 02:35:00 EDT) [place] Auto: 7.4 % (01/17/19 02:35:00 EDT) Eos Auto: 4 % (01/17/19 02:35:00 EDT) Basophil Auto: 0.8 % (01/17/19 02:35:00 EDT) Neutro Absolute: 4.5 E9/L (01/17/19 02:35:00 EDT) Lymph Absolute: 3 E9/L (01/17/19 02:35:00 EDT) [place] Absolute: 0.6 E9/L (01/17/19 02:35:00 EDT) Eos [...] rate of 95. No acute changes. Normal [facility] Comment on above: Result Comment: Elec tronically [...] Document Reviewed: 11/08/2008 ExitCare? Patient Information ?2014 PAK. This information is not intended to replace advice given to you by your health care provider. Make sure you discuss any questions you have with your health care provider. Normal [facility] ED Patient Summaryon 019 ED Patient Summary [address] [address] Patient Discharge Instructions Person Information Name: ABDIEL MANUEL Age: 28 Years Arrival Date: 01/17/2019 2:02 AM Discharge Diagnosis: 1:Chest pain Primary Care Physician: RIK NEWTON DO Provider Information Primary Provider: Alan Lan MD Advanced Laserist:None The exam and treatment you received in the Emergency Department were for an urgent problem and are not intended as complete care. It is important that you follow up with a doctor, nurse practitioner, or physician?s preschool assistant teacher for ongoing care. If your symptoms become [...] Address: When: RIK NEWTON [address] [place] [address] Business (1) Within 2 to 3 days In the event that this physician does not participate in your insurance network, please consult with your insurance company to find a nearby participating provider. Patient Education Materials: Chest Pain (Nonspecific) A MESSAGE TO ALL PATIENTS REGARDING OPIOIDS PRESCRIPTION OPIOIDS: WHAT YOU NEED TO KNOW Prescription opioids can be used to help relieve grjlnzay-kl-pzfdng pain and are often prescribed following a [...] be struggling with addiction, tell your health senior resident care director and ask for guidance or call [facility]?S National Helpline at 7-839-204-VHMN. b Source: [place] Department of Health and Human Services/Center for Disease Control & Prevention [facility] Medications Given: Medication Dose Route No medications found. Medication Information: New Medications [id number], [address] [place] [id number], [phone] metoclopramide (Reglan 10 mg Tab) 1 Tabs [...] Comment: Pharmacy Information: Thank you for choosing [facility] Patient Education Materials: Chest Pain (Nonspecific) [...] Document Reviewed: 11/08/2008 ExitCare? Patient Information ?2015 PAK. This information is not intended to replace advice given to you by your health care provider. Make sure you discuss any questions you have with your health care provider. IKALEB JORDAN J , have received the following patient education materials/instruction s and have verbalized understanding: Patient Education Materials: Chest Pain (Nonspecific) Follow-up Instructions: With: Address: When: RIK NEWTON [address] [place] [address] [facility] (1) Within 2 to 3 days Prescriptions: [metoclopramide (Reglan 10 mg Tab)] [omeprazole (omeprazole 40 mg Cap-DR)] Patient Signature Date Clinician/Nurse Signature Date 01/17/19 06:37:27 Normal [facility] PT & PTTon 01-17-2019 aPTT Coag (PPP) [Time] 28.0 second(s) Normal 25.1-36.5 [facility] Comment on above: Result Comment: Hepa rin therapeutic range (represented by Anti-Factor Xa activity of 0.2 - 0.4 U/mL) corresponds to PTT of 56.6 - 109.0 sec. Performed By: #### 2 475220, 7305914, 74946046, 0744105, 73774575, 47528257 #### [facility] [address] [place] [address] INR Coag (PPP) [Relative time] 0.9 {INR} [facility] Comment on above: Result Comment: INR results are specifically intended to assess patients stabilized on long-term Anticoagulation therapy suggested INR?s ?Less Intensive Anticoagulation? 2.0 ? 3.0 Conventional Range 3.0 ? 4.5 Performed By: #### 2 [id number] #### [facility] [address] [place] [address] PT Coag (PPP) [Time] 10.6 second(s) Normal 10.2-12.9 [facility] Comment on above: Performed By: #### 2 [id number] #### [facility] [address] [place] [address] Troponin 0 Hr.on 01-17-2019 Troponin I.cardiac [Mass/Vol] ng/mL Normal <=0.03 [facility] Comment on above: Result Comment: New Troponin Assay 08/31/13 [place] Cutoff value > or = 0.03 ng/mL in conjunction with clinical conditions of myocardial infarction. (www.escardio.org/guidelines) Performed By: #### 2 [id number] #### [facility] [address] [place] [address] Troponin 3 Hr.on 01-17-2019 Troponin I.cardiac [Mass/Vol] ng/mL Normal <=0.03 [facility] Comment on above: Result Comment: New Troponin Assay 08/31/13 [place] Cutoff value > or = 0.03 ng/mL in conjunction with clinical conditions of myocardial infarction. (www.[email or web address].org/guidelines) Performed By: #### 1 [id number] #### [facility] [address] [place] [address] XR Chest Single Viewon 01-17 XR Chest [...] M.D. Transcribed by: BRENT Technologist: FREDIS Irene [facility] eGFRon 01-17-2019 GFR/1.73 sq M predicted among blacks MDRD (S/P/Bld) [Vol rate/Area] mL/min/{1.73_m2} Normal >=59 [facility] Comment on above: Order Comment: Order added by Discern Expert. Result Comment: eGFR is race adjusted. AA=. Performed By: #### 2 [id number] #### [facility] [address] [place] [address] GFR/1.73 sq M predicted among non-blacks MDRD (S/P/Bld) [Vol rate/Area] mL/min/{1.73_m2} Normal >=59 [facility] Comment on above: Order Comment: Order added by Discern Expert. Result Comment: [employer] P[employer] angie kidney disease could be indicated at eGFR's of less than 60 mL/min/1.73m2. Kidney failure is indicated at less than 15 mL/min/1.73m2. Performed By: #### 2 [id number] #### [facility] [address] [place] [address] Vital Signs Date Time Vital Sign Value Performing Clinician Mor horowitz 05-02-2024 16:30-0500 Body temperature 97.3 [degF] Donovan Imeldacarmelo DO Work Phone: [facility] 05-02-2024 16:30-0500 Diastolic blood pressure 80 mm[Hg] Donovan Chong DO Work Phone: [facility] 05-02-2024 16:30-0500 Heart rate 93 /min Donovan Imeldacarmelo Pathagility Work Phone: [facility] 05-02-2024 16:30-0500 SaO2% (BldA) [Mass fraction] 98 % Donovan Chong DO Work Phone: [facility] 05-02-2024 16:30-0500 Systolic blood pressure 122 mm[Hg] Donovan Chong DO Work Phone: [facility] 11-11-2021 13:17-0400 Diastolic blood pressure 59 mm[Hg] Simone Krause Work Phone: [employer] 11-11-2021 13:17-0400 Heart rate 61 /min Simone Krause Work Phone: [employer] 11-11-2021 13:17-0400 SaO2% (BldA) [Mass fraction] 97 % Simone Krause Work Phone: [employer] 11-11-2021 13:17-0400 Systolic blood pressure 115 mm[Hg] Simone Krause Work Phone: [employer] 11-11-2021 11:56-0400 Body height 175.3 cm Simone Krause Work Phone: [employer] 11-11-2021 11:56-0400 Body mass index (BMI) [Ratio] 28.06 kg/m2 Simone Krause Work Phone: [employer] 11-11-2021 11:56-0400 Body temperature 97.59 [degF] Simone Krause Work Phone: [employer] 11-11-2021 11:56-0400 Body weight 86.18 kg Simone rKause Work Phone: [employer] 11-11-2021 11:56-0400 Respiratory rate 14 /min Simone Krause Work Phone: [employer] 06-26-2021 15:29-0500 Body height 175.3 cm Simone Krause Work Phone: [employer] 06-26-2021 15:29-0500 Body mass index (BMI) [Ratio] 28.06 kg/m2 Simone Krause Work Phone: [employer] 06-26-2021 15:29-0500 Body temperature 97.59 [degF] Simone Krause Work Phone: [employer] 06-26-2021 15:29-0500 Body weight 86.18 kg Simone Krause Work Phone: [employer] 06-26-2021 15:29-0500 Diastolic blood pressure 66 mm[Hg] Simone Krause Work Phone: [employer] 06-26-2021 15:29-0500 Heart rate 55 /min Simone Krause Work Phone: [employer] 06-26-2021 15:29-0500 Respiratory rate 18 /min Simone Krause Work Phone: [employer] 06-26-2021 15:29-0500 SaO2% (BldA) [Mass fraction] 99 % Simone Krause Work Phone: [employer] 06-26-2021 15:29-0500 Systolic blood pressure 109 mm[Hg] Simone Krause Work Phone: [employer] 06-18-2021 19:13-0500 Body temperature 97.3 [degF] Dea Swartz MD Work Phone: [employer] 06-18-2021 19:13-0500 Diastolic blood pressure 71 mm[Hg] Dea Swartz MD Work Phone: [employer] 06-18-2021 19:13-0500 Heart rate 62 /min Dea Swartz MD Work Phone: [employer] 06-18-2021 19:13-0500 Respiratory rate 19 /min Dea Swartz MD Work Phone: [employer] 06-18-2021 19:13-0500 SaO2% (BldA) [Mass fraction] 98 % Dea Swartz MD Work Phone: [employer] 06-18-2021 19:13-0500 Systolic blood pressure 123 mm[Hg] Dea Swartz MD Work Phone: [facility] Encounters Encounter Date Encounter Type Care Provider Facility Start: 05-02-2024 End: 05-02-2024 ambulatory DONOVAN CHONG Not Available Start: 05-02-2024 End: 05-02-2024 Office outpatient visit 25 minutes Donovan Chong DO Work Phone: [facility] Comment on above: Strain of neck muscl e, initial encounter; Cervical paraspinal muscle spasm; Neck pain Start: 11-11-2021 Emergency department patient visit [facility] Start: 11-11-2021 End: 11-11-2021 Emergency department patient visit [facility] Work Phone: [facility] Comment on above: Strain of lumbar reg ion, initial encounter (Primary Dx) Start: 06-26-2021 End: 06-26-2021 Emergency department patient visit [facility] Start: 06-26-2021 End: 06-26-2021 Emergency department patient visit [facility] Work Phone: [facility] Comment on above: Nephrolithiasis (Catrina adria Dx) Start: 06-18-2021 End: 06-18-2021 Emergency department patient visit [facility] Start: 06-18-2021 End: 06-18-2021 Emergency department patient visit Dea Swartz MD Work Phone: [facility] Comment on above: Kidney stone (Primar y Dx) Start: 06-10-2021 End: 06-13-2021 ambulatory [facility] Start: 06-10-2021 End: 06-12-2021 Subsequent hospital visit by physician [facility] Comment on above: Left foot [...] 12-18-2021 Influenza vaccination Flu vaccine (# 1) [facility] Start: 12-18-2020 Influenza vaccination Flu vaccine (# 1) [facility] Start: 2008 DTaP/Tdap/Td vaccine (1 - Tdap) DTaP/Tdap/Td vaccine (1 - Tdap) [facility] Start: 10-30-2007 Hepatitis C screening Hepatitis C sc gissel [facility] Start: 2004 HIV screening HIV screen [facility] Start: 2001 Depression Screen Depression Screen [facility] Start: 1994 COVID-19 Vaccine (1) COVID-19 Vaccin e (1) [facility] Start: 1990 Varicella vaccine (1 of 2 - 2-dose childhood series) Varicella vaccine (1 of 2 - 2-dose childhood series) [facility] Start: 05-01-1990 COVID-19 Vaccine (#1) COVID-19 Vacci ne (#1) [facility] Start: 1989 Hepatitis C screening Hepatitis C [facility] Payers Date Payer Category Payer Private Health Insurance [employer] CCN [id number] 2021 Unknown [id number] 2021 Unknown [id number] 1989 Unknown [id number] 173 1989 Unknown [id number] 173 1989 Unknown [id number] 173 1989 Unknown [id number] 173 1989 Unknown [id number] 593 1989 Unknown [id number] 1259 1989 Unknown [id number] 1259 1959 Unknown [id number] Social History Date Type Detail Facility Tobacco smoking status NHIS Tobacco smoking consumption unknown [employer] Phone: Start: 1990 Sex Assigned At Not on file [facility] Phone: Start: 06-18-2021 End: 11-11-2021 Tobacco smoking status NHIS Never smoked tobacco [employer] Phone: Start: 06-18-2021 End: 11-11-2021 Tobacco use and exposure Smokeless tobacco non-user [employer] Phone: Start: 06-18-2021 End: 11-11-2021 Alcohol intake Current drinker of alcohol (finding) [employer] Phone: Start: 06-18-2021 History SDOH Alcohol Comment Occ [employer] Phone: Start: 11-01-2021 End: 11-11-2021 Exposure to SARS-CoV-2 (event) Not sure [employer] Phone: Gender identity Not on file [facility] [...] FROM Strength testing intact. Jobes sign negative. Hand Quilter strength intact. Extremities: no clubbing, cyanosis, or [...] to 5 views documented in this encounter [facility] Discharge instructions 11-11-2021 Discharge InstructionsAttachments Note Date [...] through Care Everywhere.Back Pain: Relief: General Info (Lebanese)Back: Strain (Lebanese)documented in this encounter [employer] Phone: Hospital Discharge instructions 06-18-2021 Instructions Note Date & Type Note Facility 06-18-2021 Hospital Discharg e instructions Dea Swartz MD - 06/18/2021 Lab discussed with patient. Discharged with pain medication and Zofran for nausea. Symptoms not improving next 3 days patient to return to ED otherwise follow-up with primary care. documented in this encounter [employer] Phone: Evaluation note Note Date & Type Note Facility Evaluation note Diagnosis Left foot pain Pain in limb documented in this encounter [employer] Phone: Evaluation note Note Date & Type Note Facility Evaluation note Diagnosis Kidney stone- Primary Calculus of kidney documented in this encounter [employer] Phone: Evaluation note Note Date & Type Note Facility Evaluation note Diagnosis Nephrolithiasis- Primary Calculus of kidney documented in this encounter [employer] Phone: Evaluation note Note Date & Type Note Facility Evaluation note Diagnosis Strain of lumbar region, initial encounter- Primary documented in this encounter [employer] Phone: Evaluation note Note Date & Type Note Facility Evaluation note Diagnosis Strain of neck muscle, initial encounter Cervical paraspinal muscle spasm Spasm of muscle Neck pain Cervicalgia documented in this encounter [facility] Discharge instructions Attachments Note Date & Type Note Facility Hospital Discharge instructions The following attachments cannot be sent through Care Everywhere.Kidney Stone (Lebanese)documented in this encounter [employer] Work Phone: Summary Purpose Family History No Family History Records FoundNo Family History Records FoundNo Family History Records FoundNo Family History Records Found Advance Directives No Advanced Directives Records FoundNo Advanced Directives Records FoundNo Advanced Directives Records FoundNo Advanced Directives Records Found Reason for Referral Specialty Diagnoses / Procedures [facility] To Contact Radiology Diagnoses Left foot pain Procedures MRI FOOT LEFT WO CONTRAST Simone Krause [address] [place], [place] [id number] Referral ID Status Reason Start Date Expiration Date Visits Re quested Visits Authorized [id number] Closed 05/26/2021 07/25/2021 1 1 Additional Source Comments (unrecognized sect ion and content) No Status Records FoundNo Status Records FoundNo Status Records FoundNo Status Records Found INFORMATION SOURCE (unrecogn ized section and content) DATE CREATED AUTHOR 01/19/2019 [place] [facility] DATE CREATED AUTHOR AUTHOR'S ORGANIZ ATION 11/20/2021 [facility] DATE CREATED AUTHOR AUTHOR'S ORGANIZ ATION 02/20/2022 [facility] DATE CREATED AUTHOR AUTHOR'S ORGANIZ ATION 05/06/2024 [facility] EPIC Reason for Visit (unrecogniz ed section and content) Specialty Diagnoses / Procedures Referred By [facility] Referred To Contact Radiology Diagnoses Left foot pain Procedures MRI FOOT LEFT WO CONTRAST Simone Krause [address] [place] [id number] Referral ID Status Reason Start Date Expiration Date Visits Re quested Visits Authorized [id number] Closed 05/26/2021 07/25/2021 1 1 Reason Comments Flank Pain Right side onset few hours ago - hx of kidney stones. Reason Comments Nephrolithiasis Pt reports he has no t been able to pass a kideny stone over the past week. C/o pain in bladder. 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 [facility]. provides no warranty or guarantee of the accuracy or completeness of information in this document.
== END 2024-06-26 08:01 | disposition home or self-care (01) ==
LOC: EC 08:01
PROVIDERS: Visit Provider Orthopaedic Surgery
DX: S62.306D Unspecified fracture of fifth metacarpal bone, right hand, subsequent encounter for fracture with routine healing (principal)
CPT/HCPCS: 73130

== ENCOUNTER 2024-07-09 18:28 | Emergency (ER) | payer OTHER, SELFPAY ==
[2024-07-09 18:33] VITALS: BP 147/92; PULSE 85; TEMP 36.9; O2SAT 99
--- OUTSIDE RECORDS SUMMARY | 2024-07-09 18:35 | XMS_ITS | CCD ---
Author Organization [facility] Care Team Providers Care [employer] Coach Name Role Phone Simone Krause Primary Care [...] Propensity to adverse reactions to drug 2 [facility] (1 source) Bee pollen Drug Allergy 2 [facility] (1 source) Bee pollen Drug allergy (disorder) [facility] (1 source) Shellfish Drug allergy (disorder) [facility] (2 sources) Bee pollen Propensity to adverse reactions 2 [facility] (2 sources) Fish Oils Drug Allergy 3 [facility] Medications Current Medications Medication Drug Class(es) [...] Translations: [Encounter for examination for recruitment to [facility]] Onset: 05-02-2024 05-02-2024 Episodic Anxiety disorders (4 [...] signed and approved by the interpreting radiologist. [facility] [employer] Radiology Study observation (narrative) [facility] [employer] XR Cervical spine 4 or 5 Vie wsOrdered By: Vishal Love on 05-02-2024 [employer] Work Phone: XR LUMBAR SPINE (2-3 [...] Lang Tirado MD 11/11/21 Final result Normal [facility] [ 1. Straightening of the normal lumbar lordosis which may be related to positioning or spasm. 2. Vertebral body heights and intervertebral disc spaces maintained. [facility] RIS CONSOLIDATED EXAMINATION: THREE XRAY [...] body heights and intervertebral disc spaces maintained. [employer] Work Phone: Radiology Study observation (narrative) CSR Phone: XR LUMBAR SPINE (2-3 VIEWS)O rdered By: Lang Tirado on 11-11-2021 [employer] Work Phone: CBC with Auto Differentialon 06-26-2021 Absolute Eos # 0.31 [facility] th Absolute Immature Granulocyte <0.03 [facility] Absolute Lymph # 3.02 [facility] alth Absolute [place] # 0.57 [facility] lt Basophils (Bld) [#/Vol] 0.07 10*3/uL [facility] Basophils/100 WBC (Bld) 1 % 0 - 2 % [facility] Eosinophils/100 WBC (Bld) 4 % 1 - 4 % [facility] Hematocrit (Bld) [Volume fraction] 43.7 % 40.7 - 50.3 % 3seventy Hemoglobin.gastroint estinal spec 1 Ql (Stl) 14.9 g/dL 13.0 - 17.0 g/dL [facility] Immature granulocytes/100 WBC (Bld) 0 % 0 [facility] Interpretation and review of laboratory results Abnormal [facility] Lymphocytes/100 WBC (Bld) 44 % High 24 - 43 % [facility] MCH (RBC) [Entitic mass] 31.5 pg 25.2 - 33.5 pg [facility] MCHC (RBC) [Mass/Vol] 34.1 g/dL 28.4 - 34.8 g/dL [facility] MCV (RBC) [Entitic vol] 92.4 fL 82.6 - 102.9 fL [facility] Monocytes/100 WBC (Bld) 8 % 3 - 12 % [facility] NRBC Automated 0.0 0.0 per 100 WBC [facility] Platelet distribution width (Bld) [Ratio] 12.1 % 11.8 - 14.4 % [facility] Platelet mean volume (Bld) [Entitic vol] 9.8 fL 8.1 - 13.5 fL [facility] Platelets (Bld) [#/Vol] 354 10*3/uL [facility] RBC (Bld) [#/Vol] 4.73 10*6/uL 4.21 - 5.7 7 m/uL [facility] Segmented neutrophils/100 WBC (Bld) 43 % 36 - 65 % [facility] Segs [facility] [#/Vol] 7.0 10*3/uL [facility] CBC with Diffon 06-26-2021 Abs. Basophil 0.07 k/uL Normal 0.00-0.20 [facility] Comment on above: Performed By: #### C DP, CP #### [facility] [address] [place] [address] [employer] Operator: To Dey MD Abs.Imm.Granulocyte <0.03 Normal 0.00-0.30 [facility] Comment on above: Performed By: #### C DP, CP #### [facility] [address] [place] [address] [employer] Operator: To Dey MD Abs.Neutrophil (Seg) 3.04 k/uL Normal 1.50-8.10 [facility] Comment on above: Performed By: #### C DP, CP #### [facility] [address] [place] [address] [address], [place] [address] [employer] Operator: To Dey MD Basophils/100 WBC (Bld) 1 % Normal 0-2 [facility] Comment on above: Performed By: #### C DP, CP #### [address] [place], [place] [address] [employer] Operator: To Dey MD Eosinophils (Bld) [#/Vol] 0.31 10*3/uL Normal 0.00-0.44 [facility] Comment on above: Performed By: #### C DP, CP #### [address] [place] [address] [employer] Operator: To Dey MD Eosinophils/100 WBC (Bld) 4 % Normal 1-4 [facility] Comment on above: Performed By: #### C DP, CP #### [address] [place], [facility] [employer] Operator: To Dey MD Erythrocyte distribution width (RBC) [Ratio] 12.1 % Normal 11.8-14.4 [facility] Comment on above: Performed By: #### C DP, CP #### [address] [place], [place] [address] [employer] Operator: To Dey MD Hematocrit (Bld) [Volume fraction] 43.7 % Normal 40.7-50.3 [facility] Comment on above: Performed By: #### C DP, CP #### [address] [place], [facility] [employer] Operator: To Dey MD Hemoglobin (Bld) [Mass/Vol] 14.9 g/dL Normal 13.0-17.0 [facility] Comment on above: Performed By: #### C DP, CP #### [facility] [address] [place], [place] [phone] [employer] Operator: To Dey MD Immature granulocytes/100 WBC (Bld) 0 % Normal 0 [facility] Comment on above: Performed By: #### C DP, CP #### [facility] [address] [place], [place] [phone] [employer] Operator: To Dey MD Lymphocytes (Bld) [#/Vol] 3.02 10*3/uL Normal 1.10-3.70 [facility] Comment on above: Performed By: #### C DP, CP #### [address] [place], [place] [phone] [employer] Operator: To Dey MD Lymphocytes/100 WBC (Bld) 44 % High 24-43 [facility] Comment on above: Performed By: #### C DP, CP #### [address] [place], [facility] [employer] Operator: To Dey MD MCH (RBC) [Entitic mass] 31.5 pg Normal 25.2-33.5 [facility] Comment on above: Performed By: #### C DP, CP #### [address] [place], [place] [phone] [employer] Operator: To Dey MD MCHC (RBC) [Mass/Vol] 34.1 g/dL Normal 28.4-34.8 [facility] Comment on above: Performed By: #### C DP, CP #### [address] [place], [place] [phone] [employer] Operator: To Dey MD MCV (RBC) [Entitic vol] 92.4 fL Normal 82.6-102.9 [facility] Comment on above: Performed By: #### C DP, CP #### [address] [place], [place] [phone] [employer] Operator: To Dey MD Monocytes (Bld) [#/Vol] 0.57 10*3/uL Normal 0.10-1.20 [facility] Comment on above: Performed By: #### C DP, CP #### [facility] [address] [place] [address] [employer] Operator: To Dey MD Monocytes/100 WBC (Bld) 8 % Normal 3-12 [facility] Comment on above: Performed By: #### C DP, CP #### [facility] [address] [place] [address] [employer] Operator: To Dey MD Neutrophil (Seg) 43 % Normal 36-65 [facility] Comment on above: Performed By: #### C DP, CP #### [facility] [address] [place], [place] [phone] [employer] Operator: To Dey MD NRBC Automated 0.0 per 100 WBC Normal 0.0 [facility] Comment on above: Performed By: #### C DP, CP #### [facility] [address] [place], [place] [phone] [employer] Operator: To Dey MD Platelet mean volume (Bld) [Entitic vol] 9.8 fL Normal 8.1-13.5 [facility] Comment on above: Performed By: #### C DP, CP #### [facility] [address] [place], [place] [phone] [employer] Operator: To Dey MD Platelets (Bld) [#/Vol] 354 10*3/uL Normal 138-453 [facility] Comment on above: Performed By: #### C DP, CP #### [facility] [address] [place] [address] [employer] Operator: To Dey MD RBC (Bld) [#/Vol] 4.73 10*6/uL Normal 4.21-5.77 [facility] Comment on above: Performed By: #### C DP, CP #### [facility] [address] [place] [address] [employer] Operator: To Dey MD WBC (Bld) [#/Vol] 7.0 10*3/uL Normal 3.5-11.3 [facility] Comment on above: Performed By: #### C DP, CP #### [facility] [address] [place], [place] [phone] [employer] Operator: To Dey MD CT ABDOMEN PELVIS [...] by: Canelo Savage 06/26/21 Final result Normal [facility] CT ABDOMEN PELVIS WO CONTRAS T [...] wall thickening could be due to cystitis.. [employer] Phone: Radiology Study observation (narrative) [employer] Phone: CT ABDOMEN PELVIS WO CONTRAS T Additional Contrast? NoneOrdered By: Canelo Savage on 06-26-2021 [employer] Phone: Comp Metabolic Profon 2021 (cont.) Normal [facility] Comment on above: Result Comment: Aver age GFR for 30-39 years old: 107 mL/min/1.73sq m Chronic Kidney Disease: <60 mL/min/1.73sq m Kidney failure: <15 mL/min/1.73sq m eGFR calculated using average adult body mass. Additional eGFR calculator available at: http://www.[employer]/multiple_crcl_2011.htm Performed By: #### C DP, CP #### [facility] [address] [place], [place] [phone] [employer] Operator: To Dey MD Albumin [Mass/Vol] 4.2 g/dL Normal 3.5-5.2 [facility] Comment on above: Performed By: #### C DP, CP #### [facility] [address] [place], [place] [phone] [employer] Operator: To Dey MD Albumin/Glob Ratio 1.3 Normal 1.0-2.5 [facility] Comment on above: Performed By: #### C DP, CP #### [facility] [address] [place], [place] [phone] [employer] Operator: To Dey MD Alkaline Phos 83 U/L Normal 40-129 [facility] Comment on above: Performed By: #### C DP, CP #### [facility] [address] [place] [address] [employer] Operator: To Dey MD ALT [Catalytic activity/Vol] 23 U/L Normal 5-41 [facility] Comment on above: Performed By: #### C DP, CP #### [address] [place] [address] [employer] Operator: To Dey MD Anion gap [Moles/Vol] 12 mmol/L Normal 9-17 [facility] Comment on above: Performed By: #### C DP, CP #### [facility] [address] [place] [address] [employer] Operator: To Dey MD AST [Catalytic activity/Vol] 17 U/L Normal <40 [facility] Comment on above: Performed By: #### C DP, CP #### [facility] [address] [place], [place] [phone] [employer] Operator: To Dey MD Bilirubin [Mass/Vol] 0.39 mg/dL Normal 0.3-1.2 [facility] Comment on above: Performed By: #### C DP, CP #### [facility] [address] [place], [place] [phone] [employer] Operator: To Dey MD BUN/CRE Ratio 11 Normal 9-20 [facility] Comment on above: Performed By: #### C DP, CP #### [facility] [address] [place], [place] [phone] [employer] Operator: To Dey MD Calcium [Mass/Vol] 9.4 mg/dL Normal 8.6-10.4 [facility] Comment on above: Performed By: #### C DP, CP #### [facility] [address] [place], [place] [phone] [employer] Operator: To Dey MD Chloride [Moles/Vol] 102 mmol/L Normal 98-107 [facility] Comment on above: Performed By: #### C DP, CP #### [facility] [address] [place], [place] [phone] [employer] Operator: To Dey MD CO2 [Moles/Vol] 23 mmol/L Normal 20-31 [facility] Comment on above: Performed By: #### C DP, CP #### [facility] [address] [place], [place] [phone] [employer] Operator: To Dey MD Creatinine [Mass/Vol] 1.50 mg/dL High 0.70-1.20 [facility] Comment on above: Performed By: #### C DP, CP #### [facility] [address] [place], [place] [phone] [employer] Operator: To Dey MD GFR, Amer >60 Normal >60 [facility] Comment on above: Performed By: #### C DP, CP #### [facility] [address] [place], [place] [address] [employer] Operator: To Dey MD GFR,non Amer 55 mL/min Low >60 [facility] Comment on above: Performed By: #### C DP, CP #### [facility] [address] [place] [address] [place], [place] [phone] [employer] Operator: To Dey MD Glucose [Mass/Vol] 94 mg/dL Normal 70-99 [facility] Comment on above: Performed By: #### C DP, CP #### [facility] [address] [place], [place] [phone] [employer] Operator: To Dey MD Potassium [Moles/Vol] 3.5 mmol/L Low 3.7-5.3 [facility] Comment on above: Performed By: #### C DP, CP #### [address] [place], [place] [address]83 [employer] Operator: To Dey MD Protein [Mass/Vol] 7.5 g/dL Normal 6.4-8.3 [facility] Comment on above: Performed By: #### C DP, CP #### [address] [place], [place] [address]83 [employer] Operator: To Dey MD Sodium [Moles/Vol] 137 mmol/L Normal 135-144 [facility] Comment on above: Performed By: #### C DP, CP #### [address] [place], [place] [phone] [employer] Operator: To Dey MD Staging: Normal [facility] Comment on above: Result Comment: Stag e 1: Some kidney damage normal GFR Stage 2: Mild kidney damage GFR 60-89 Stage 3: Moderate kidney damage GFR 30-59 Stage 4: Severe kidney damage GFR 15-29 Stage 5: Severe kidney damage GFR <15 ESRD - chronic treatment by dialysis or transplant Performed By: #### C DP, CP #### [address] [place] [address] [employer] Operator: To Dey MD Urea nitrogen [Mass/Vol] 17 mg/dL Normal 6-20 [facility] Comment on above: Performed By: #### C DP, CP #### [facility] [address] [place] [address] [employer] Operator: To Dey MD Comprehensive Metabolic Pane susanne 06-26-2021 Albumin [Mass/Vol] 4.2 g/dL 3.5 - 5.2 g/dL [facility] Albumin/Globulin [Mass ratio] 1.3 {ratio} [facility] ALP (Bld) [Catalytic activity/Vol] 83 U/L 40 - 129 U/L [facility] ALT [Catalytic activity/Vol] 23 U/L 5 - 41 U/L [facility] Anion gap [Moles/Vol] 12 mmol/L 9 - 17 mmol/L [facility] AST [Catalytic activity/Vol] 17 U/L <40 [facility] Bilirubin [Mass/Vol] 0.39 mg/dL 0.3 - 1 .2 mg/dL [facility] Calcium [Mass/Vol] 9.4 mg/dL 8.6 - 10. 4 mg/dL [facility] Chloride [Moles/Vol] 102 mmol/L 98 - 10 7 mmol/L [facility] CO2 [Moles/Vol] 23 mmol/L 20 - 31 mmol/L [facility] Creatinine [Mass/Vol] 1.5 mg/dL High 0.70 - 1.20 mg/dL [facility] Free PSA/Total PSA [Mass fraction] 7.5 g/dL 6.4 - 8.3 g/dL [facility] GFR >60 >60 mL/min [facility] GFR Non- 55 mL/min Low >60 [facility] Glucose [Mass/Vol] 94 mg/dL 70 - 99 mg/dL [facility] Interpretation and review of laboratory results Abnormal [facility] Potassium [Moles/Vol] 3.5 mmol/L Low 3.7 - 5.3 mmol/L [facility] Sodium [Moles/Vol] 137 mmol/L 135 - 144 mmol/L [facility] Urea nitrogen (BldV) [Mass/Vol] 17 mg/dL 6 - 20 mg/dL [facility] Urea nitrogen/Creatinine (Bld) [Mass ratio] 11 [facility] - Chemistry and C hemistry - challengeon 06-26-2021 GFR/1.73 sq M.predicted MDRD (S/P/Bld) [Vol rate/Area] [facility] Comment on above: Average GFR for 30-3 9 years old: 107 mL/min/1.73sq m Chronic Kidney Disease: <60 mL/min/1.73sq m Kidney failure: <15 mL/min/1.73sq m eGFR calculated using average adult body mass. Additional eGFR calculator available at: http://www.[employer]/multiple_crcl_2012.htm Stage 1: Some kidney damage normal GFR Stage 2: Mild kidney damage GFR 60-89 Stage 3: Moderate kidney damage GFR 30-59 Stage 4: Severe kidney damage GFR 15-29 Stage 5: Severe kidney damage GFR <15 ESRD - chronic treatment by dialysis or transplant Urinalysis w/ Microon 2021 ----- Normal [facility] Comment on above: Performed By: #### U AMIC #### [facility] [address] [place] [address] [employer] Operator: To Dey MD Bacteria TRACE Abnormal NONE [facility] Comment on above: Performed By: #### U AMIC #### [facility] [address] [place] [address] [employer] Operator: To Dye MD Bilirubin, SemiQt,Ur Negative Normal NEG [facility] Comment on above: Performed By: #### U AMIC #### [facility] [address] [place] [address] [employer]el [employer] Operator: To Dey MD Blood, Urine 1+ Abnormal NEG [facility] Comment on above: Performed By: #### U AMIC #### [facility] [address] [place] [address] [employer] Operator: To Dey MD Clarity (U) Clear Normal CLEAR [facility] Comment on above: Performed By: #### U AMIC #### [facility] [address] [place], [place] [phone] [employer] Operator: To Dey MD Color (U) Yellow Normal YEL [facility] Comment on above: Performed By: #### U AMIC #### [facility] [address] [place], [place] [phone] [employer] Operator: To Dey MD Epithelial cells LM Ql (Urine sed) 0 TO 2 Normal 0-5 [facility] Comment on above: Performed By: #### U AMIC #### [address] [place], [place] [phone] [employer]el [employer] Operator: To Dey MD Glucose Ql (U) Negative Normal NEG [facility] Comment on above: Performed By: #### U AMIC #### [facility] [address] [place] [address] [place], [place] [phone] [employer] Operator: To Dey MD Ketones Ql (U) Negative Normal NEG [facility] Comment on above: Performed By: #### U AMIC #### [address] [place], [place] [phone] [employer] Operator: To Dey MD Leukocyte esterase Test strip Ql (U) Negative Normal NEG [facility] Comment on above: Performed By: #### U AMIC #### [address] [place], [place] [address]57[address]83 [employer] Operator: To Dey MD Nitrite,Ur Negative Normal NEG [facility] Comment on above: Performed By: #### U AMIC #### [address] [place] [address] [employer] Operator: To Dey MD PH,Ur 7.0 Normal 5.0-9.0 [facility] Comment on above: Performed By: #### U AMIC #### [address] [place] [phone] [employer] Operator: To Dey MD Protein Ql (U) Negative Normal NEG [facility] Comment on above: Performed By: #### U AMIC #### [facility] [address] [place] [address] [employer] Operator: To Dey MD Spec. [place],Ur 1.015 Normal 1.010-1.020 [facility] Comment on above: Performed By: #### U AMIC #### [facility] [address] [place] [address] [employer] Operator: To Dey MD Urine RBC's 2 TO 5 Normal 0-2 [facility] Comment on above: Performed By: #### U AMIC #### [facility] [address] [place], [place] [address] [employer] Operator: To Dey MD Urine WBC's 2 TO 5 Normal 0-5 [facility] Comment on above: Performed By: #### U AMIC #### [facility] [address] [place] [address] [place] [address] [employer] Operator: To Dey MD Urobilinogen,Ur Normal Normal NORM [facility] Comment on above: Performed By: #### U AMIC #### [facility] [address] [place] [address] [employer] Operator: To Dey MD Urinalysis with Microscopico n 06-26-2021 - [facility] Bacteria, UA TRACE Abnormal None [facility] Bilirubin Urine Negative NEGATIVE [facility] Color, UA Yellow Yellow [facility] Epithelial Cells UA 0 TO 2 [facility] Glucose, Ur Negative NEGATIVE [facility] Interpretation and review of laboratory results Abnormal [facility] Ketones Ql (U) Negative NEGATIVE [facility] Leukocyte esterase Test strip Ql (U) Negative NEGATIVE [facility] Nitrite, Urine Negative NEGATIVE [facility] pH, UA 7.0 [facility] Protein, UA Negative NEGATIVE [facility] RBC, UA 2 TO 5 [facility] Specific [place], UA 1.015 [facility] Turbidity UA Clear Clear [facility] Urine Hgb 1+ Abnormal NEGATIVE [facility] Urobilinogen, Urine Normal Normal [facility] WBC, UA 2 TO 5 [facility] Basic Metab w/rfx MGon 06-18 Potassium [Moles/Vol] 3.3 mmol/L Low 3.7-5.3 [facility] Comment on above: Performed By: #### Luis Chen, BMPX #### [facility] [address] [place] [address] [employer] Operator: To Dey MD (cont.) [facility] Comment on above: Result Comment: Aver age GFR for 30-39 years old: 107 mL/min/1.73sq m Chronic Kidney Disease: <60 mL/min/1.73sq m Kidney failure: <15 mL/min/1.73sq m eGFR calculated using average adult body mass. Additional eGFR calculator available at: http://www.[employer]/multiple_crcl_2012.htm Performed By: #### Luis Chen, BMPX #### [facility] [address] [place] [address] [employer] Operator: To Dey MD Anion gap [Moles/Vol] 11 mmol/L Normal - [facility] Comment on above: Performed By: #### Luis Chen, BMPX #### [facility] [address] [place] [address] [employer] Operator: To Dey MD BUN/CRE Ratio 16 Normal - [facility] Comment on above: Performed By: #### Luis Chen, BMPX #### [facility] [address] [place] [address] [employer] Operator: To Dey MD Calcium [Mass/Vol] 9.4 mg/dL Normal 8.6-10.4 [facility] Comment on above: Performed By: #### Luis Chen, BMPX #### [facility] [address] [place], [place] [phone] [employer] Operator: To Dey MD Chloride [Moles/Vol] 108 mmol/L High 98-107 [facility] Comment on above: Performed By: #### M G, BMPX #### [facility] [address] [place], [place] [id number] Reel Cart Operator: To Dey MD CO2 [Moles/Vol] 20 mmol/L Normal 20-31 [facility] Comment on above: Performed By: #### M G, BMPX #### [facility] [address] [place], [place] [id number] Reel Cart Operator: To Dey MD Creatinine [Mass/Vol] 1.11 mg/dL Normal 0.70-1.20 [facility] Comment on above: Performed By: #### M April, BMPX #### [facility] [address] [place], [place] [id number] Reel Cart Operator: To Dey MD GFR, Amer >60 Normal >60 [facility] Comment on above: Performed By: #### Luis Chen, BMPX #### [facility] [address] [place], [place] [address] Reel Cart Operator: To Dey MD GFR,non Amer >60 Normal >60 [facility] Comment on above: Performed By: #### M April, BMPX #### [facility] [address] [place], [place] [address]83 Reel Cart Operator: To Dey MD Glucose [Mass/Vol] 109 mg/dL High 70-99 [facility] Comment on above: Performed By: #### M G, BMPX #### [facility] [address] [place], [place] [address]83 Reel Cart Operator: oT Dey MD Sodium [Moles/Vol] 139 mmol/L Normal 135-144 [facility] Comment on above: Performed By: #### M G, BMPX #### [facility] [address] [place] [address] Reel Cart Operator: To Dey MD Staging: Normal [facility] Comment on above: Result Comment: Stag e 1: Some kidney damage normal GFR Stage 2: Mild kidney damage GFR 60-89 Stage 3: Moderate kidney damage GFR 30-59 Stage 4: Severe kidney damage GFR 15-29 Stage 5: Severe kidney damage GFR <15 ESRD - chronic treatment by dialysis or transplant Performed By: #### M G, BMPX #### [facility] [address] [place] [address] Reel Cart Operator: To Dey MD Urea nitrogen [Mass/Vol] 18 mg/dL Normal 6-20 [facility] Comment on above: Performed By: #### M G, BMPX #### [facility] [address] [place] [address] Reel Cart Operator: To Dey MD Basic Metabolic Panel w/ Ref jesusita to MGon 06-18-2021 Anion gap [Moles/Vol] 11 mmol/L 9 - 17 mmol/L [facility] Calcium [Mass/Vol] 9.4 mg/dL 8.6 - 10. 4 mg/dL [facility] Chloride [Moles/Vol] 108 mmol/L High 98 - 10 7 mmol/L [facility] CO2 [Moles/Vol] 20 mmol/L 20 - 31 mmol/L [facility] Creatinine [Mass/Vol] 1.11 mg/dL 0.70 - 1.20 mg/dL [facility] GFR >60 >60 mL/min [facility] GFR Non- >60 >60 mL/min [facility] Glucose [Mass/Vol] 109 mg/dL High 70 - 99 mg/dL [facility] Interpretation and review of laboratory results Abnormal [facility] Potassium [Moles/Vol] 3.3 mmol/L Low 3.7 - 5.3 mmol/L [facility] Sodium [Moles/Vol] 139 mmol/L 135 - 144 mmol/L [facility] Urea nitrogen (BldV) [Mass/Vol] 18 mg/dL 6 - 20 mg/dL [facility] Urea nitrogen/Creatinine (Bld) [Mass ratio] 16 [facility] - Chemistry and C hemistry - challengeon 06-18-2021 GFR/1.73 sq M.predicted MDRD (S/P/Bld) [Vol rate/Area] [facility] Comment on above: Average GFR for 30-3 9 years old: 107 mL/min/1.73sq m Chronic Kidney Disease: <60 mL/min/1.73sq m Kidney failure: <15 mL/min/1.73sq m eGFR calculated using average adult body mass. Additional eGFR calculator available at: http://www.Yottaa/multiple_crcl_2012.htm Stage 1: Some kidney damage normal GFR Stage 2: Mild kidney damage GFR 60-89 Stage 3: Moderate kidney damage GFR 30-59 Stage 4: Severe kidney damage GFR 15-29 Stage 5: Severe kidney damage GFR <15 ESRD - chronic treatment by dialysis or transplant Magnesiumon 06-18-2021 Magnesium [Mass/Vol] 2.2 mg/dL Normal 1.6-2.6 [facility] Comment on above: Performed By: #### M G, BMPX #### [facility] [address] [place] [address] Reel Cart Operator: To Dey MD Magnesium [Mass/Vol] 2.2 mg/dL 1.6 - 2 .6 mg/dL [facility] Microscopic Urinalysison - [facility] Epithelial Cells UA 0 TO 2 [facility] Interpretation and review of laboratory results Abnormal [facility] Mucus, UA 1+ Abnormal None [facility] RBC, UA 20 TO 50 [facility] WBC, UA 0 TO 2 [facility] UA w/Reflex Cultureon 2021 Bilirubin, SemiQt,Ur Negative Normal NEG [facility] Comment on above: Performed By: #### VALENCIA HIGGINS #### [facility] [address] [place] [address] Reel Cart Operator: To Dey MD Blood, Urine 3+ Abnormal NEG [facility] Comment on above: Performed By: #### U REX HERRMANNICAO #### [facility] [address] [place] [address] [place], [place] [phone] Reel Cart Operator: To Dey MD Clarity (U) SLIGHTLY CLOUDY Abnormal CLEAR [facility] Comment on above: Performed By: #### U AX, UMICAO #### [address] [place], [place] [address]83 Reel Cart Operator: To Dey MD Color (U) Yellow Normal YEL [facility] Comment on above: Performed By: #### U AX, UMICAO #### [address] [place] [address] Reel Cart Operator: To Dey MD Glucose Ql (U) Negative Normal NEG [facility] Comment on above: Performed By: #### U AX, UMICAO #### [address] [place], [place] [id number] Reel Cart Operator: To Dey MD Ketones Ql (U) Negative Normal NEG [facility] Comment on above: Performed By: #### U AX, UMICAO #### [address] [place] [address] Reel Cart Operator: To Dey MD Leukocyte esterase Test strip Ql (U) Negative Normal NEG [facility] Comment on above: Performed By: #### U AX, UMICAO #### [facility] [address] [place] [address] [place], [place] [phone] Reel Cart Operator: To Dey MD Nitrite,Ur Negative Normal NEG [facility] Comment on above: Performed By: #### U AX, UMICAO #### [address] [place], [place] 534[address]83 Reel Cart Operator: To Dey MD PH,Ur 6.0 Normal 5.0-9.0 [facility] Comment on above: Performed By: #### U AX, UMICAO #### [facility] [address] [place], [place] [phone] Reel Cart Operator: To Dey MD Protein Ql (U) Negative Normal NEG [facility] Comment on above: Performed By: #### U AX, UMICAO #### [facility] [address] [place], [place] [phone] Reel Cart Operator: To Dey MD Spec. [place],Ur 1.015 Normal 1.010-1.020 [facility] Comment on above: Performed By: #### U AX, UMICAO #### [facility] [address] [place] [address] [place]. [place], [place] [phone] Reel Cart Operator: To Dey MD Urobilinogen,Ur Normal Normal NORM [facility] Comment on above: Performed By: #### U AX, UMICAO #### [facility] [address] [place] [address] Dr. [place], [facility] Reel Cart Operator: To Dey MD Urinalysis with Reflex to Cu ltureon 06-18-2021 Bilirubin Urine Negative NEGATIVE [facility] Color, UA Yellow Yellow [facility] Glucose, Ur Negative NEGATIVE [facility] Interpretation and review of laboratory results Abnormal [facility] Ketones Ql (U) Negative NEGATIVE [facility] Leukocyte esterase Test strip Ql (U) Negative NEGATIVE [facility] Nitrite, Urine Negative NEGATIVE [facility] pH, UA 6.0 [facility] Protein, UA Negative NEGATIVE [facility] Specific [place], UA 1.015 [facility] Turbidity UA SLIGHTLY CLOUDY Abnormal Clear [facility] H ealth Urine Hgb 3+ Abnormal NEGATIVE [facility] Urobilinogen, Urine Normal Normal [facility] Urinalysis,Microon 2 ----- Normal [facility] Comment on above: Performed By: #### U AX, UMICAO #### [facility] [address] [place], [place] [phone] Reel Cart Operator: To Dey MD Epithelial cells LM Ql (Urine sed) 0 TO 2 Normal 0-5 [facility] Comment on above: Performed By: #### U AX, UMICAO #### [facility] [address] [place], [place] 48[address]283 Reel Cart Operator: To Dey MD Mucus Strands 1+ Abnormal NONE [facility] Comment on above: Performed By: #### U AX, UMICAO #### [facility] [address] [place], [place] [address]387183 Reel Cart Operator: To Dey MD Urine RBC's 20 TO 50 Normal 0-2 [facility] Comment on above: Performed By: #### U AX, UMICAO #### [facility] [address] [place], [place] [address]26[address]83 Reel Cart Operator: To Dey MD Urine WBC's 0 TO 2 Normal 0-5 [facility] Comment on above: Performed By: #### U AX, UMICAO #### [facility] [address] [place] [address] Reel Cart Operator: To Dey MD MRI FOOT LEFT [...] Trey Leiva MD 06/12/21 Final result Normal [facility] No etiology identified to explain left foot pain. [facility] EXAMINATION: MRI OF THE LEFT FOOT WITHOUT [...] etiology identified to explain left foot pain. [facility] [place] Work Phone: MRI FOOT LEFT WO CONTRASTOrd ered By: Trey Stevensr on 06-12-2021 [employer] Phone: MRI FOOT LEFT WO CONTRASTon 06-10-2021 Radiology Study observation (narrative) [employer] Phone: Coding Summary.on 01-18-2019 Coding Summary. CODING DATE: 01/18/2019 FINAL [facility] STATUS: Home (Routine DC) PAYOR: Government [...] F43.10 Post-traumatic stress disorder, unspecified Z79.899 Other long-term (current) drug therapy Z87.820 Personal history of [...] Revised Date Saved: 01/18/2019 11:33 am Normal [facility] Auto Diffon 01-17-2019 Basophils/100 WBC (Bld) 0.8 % Normal 0.0-2.0 [facility] Comment on above: Order Comment: Order Added by Discern Expert. Performed By: #### 2 167851, 4211352, [id number], 2752701, 26073780, 63333427 #### [facility] [address] [place] [address] Basophils/Leukocytes Auto (Bld) [Pure # fraction] 0.1 E9/L Normal 0.0-0.2 [facility] Comment on above: Order Comment: Order Added by Discern Expert. Performed By: #### 2 927619, 0490286, 44567014, 8308466, 78765048, 79088929 #### [facility] [address] [place] [address] Eosinophils/100 WBC (Bld) 4.0 % Normal 0.0-8.0 [facility] Comment on above: Order Comment: Order Added by Discern Expert. Performed By: #### 2 082447, 3203977, 79113719, 7401538, 12594676, 95135179 #### [facility] [address] [place] [address] Eosinophils/Leukocyt es Auto (Bld) [Pure # fraction] 0.3 E9/L Normal 0.0-0.5 [facility] Comment on above: Order Comment: Order Added by Discern Expert. Performed By: #### 2 419046, 6846859, 44440774, 8424501, 08515674, 59850495 #### [facility] [address] [place] [address] Lymphocytes/100 WBC (Bld) 35.1 % Normal 14.0-50.0 [facility] Comment on above: Order Comment: Order Added by Discern Expert. Performed By: #### 2 933341, 2301104, 95158109, 5479636, 47556309, 57242550 #### [facility] [address] [place] [address] Lymphocytes/Leukocyt es Auto (Bld) [Pure # fraction] 3.0 E9/L Normal 1.0-4.0 [facility] Comment on above: Order Comment: Order Added by Discern Expert. Performed By: #### 2 006351, 7667633, 11577693, 8307917, 74434683, 53543784 #### [facility] [address] [place] [address] Monocytes/100 WBC (Bld) 7.4 % Normal 4.0-14.0 [facility] Comment on above: Order Comment: Order Added by Discern Expert. Performed By: #### 2 548522, 5208251, 75580860, 3825642, 35126703, 90341837 #### [facility] [address] [place] [address] Monocytes/Leukocytes Auto (Bld) [Pure # fraction] 0.6 E9/L Normal 0.2-1.0 [facility] Comment on above: Order Comment: Order Added by Discern Expert. Performed By: #### 2 236919, 0325740, 54581622, 6143095, 79675106, 27553500 #### [facility] [address] [place] [address] Neutrophils/100 WBC (Bld) 52.7 % Normal 36.0-75.0 [facility] Comment on above: Order Comment: Order Added by Discern Expert. Performed By: #### 2 419875, 0447366, 32376267, 3429861, 75734615, 59164770 #### [facility] [address] [place] [address] Neutrophils/Leukocyt es Auto (Bld) [Pure # fraction] 4.5 E9/L Normal 2.0-7.5 [facility] Comment on above: Order Comment: Order Added by Discern Expert. Performed By: #### 2 153911, 6150374, 50724654, 5905757, 22609222, 02696761 #### [facility] [address] [place] [address] BMPon 01-17-2019 Creatinine [Mass/Vol] 1.0 mg/dL Normal 0.5-1.3 [facility] Comment on above: Performed By: #### 2 563345, 7257532, 60729874, 4177558, 62834259, 00163858 #### [facility] [address] [place] [address] Urea nitrogen [Mass/Vol] 12 mg/dL Normal 5-21 [facility] Comment on above: Performed By: #### 2 889637, 8919913, 31092064, 2490680, 22974977, 07322687 #### [facility] [address] [place] [address] Urea nitrogen/Creatinine [Mass ratio] 12 No Units Normal 10-20 [facility] Comment on above: Performed By: #### 2 234274, 5331091, 99894001, 5672698, 18443538, 49086814 #### [facility] [address] [place] [address] Anion gap [Moles/Vol] 15 mmol/L Normal 6-16 [facility] Comment on above: Performed By: #### 2 671484, 1896990, 76157574, 6591577, 62968722, 08209135 #### [facility] [address] [place] [address] Calcium [Mass/Vol] 9.6 mg/dL Normal 8.9-11.1 [facility] Comment on above: Performed By: #### 2 249659, 0466675, 52493766, 1734612, 14977620, 07790294 #### [facility] [address] [place] [address] Chloride [Moles/Vol] 105 mmol/L Normal 101-111 [facility] Comment on above: Performed By: #### 2 873110, 7059524, 10460287, 1862976, 33327379, 88363616 #### [facility] [address] [place] [address] CO2 [Moles/Vol] 25 mmol/L Normal 21-31 [facility] Comment on above: Performed By: #### 2 300305, 4180061, 14870609, 3150963, 43623443, 33574073 #### [facility] [address] [place] [address] Glucose [Mass/Vol] 129 mg/dL Normal 55-199 [facility] Comment on above: Result Comment: If t his glucose result represents a fasting glucose, interpretation should refer to the following reference range: 55-99 mg/dL Performed By: #### 2 390975, 0330740, 55397481, 4362243, 38557099, 93132728 #### [facility] [address] [place] [address] Potassium [Moles/Vol] 3.3 mmol/L Low 3.5-5.3 [facility] Comment on above: Performed By: #### 2 618590, 4407269, 08517778, 2595730, 42732721, 06880542 #### [facility] [address] [place] [address] Sodium [Moles/Vol] 142 mmol/L Normal 135-145 [facility] Comment on above: Performed By: #### 2 521319, 9700910, 02819331, 4656257, 19799016, 73349216 #### [facility] [address] [place] [address] CBC w/ Auto Diffon 9 Erythrocyte distribution width (RBC) [Ratio] 13.6 % Normal 10.9-14.2 [facility] Comment on above: Performed By: #### 2 053779, 7686643, 53585889, 3772396, 49340178, 04490272 #### [facility] [address] [place] [address] Hematocrit (Bld) [Volume fraction] 44.5 % Normal 37.7-49.0 [facility] Comment on above: Performed By: #### 2 969857, 1028250, 71979831, 6300147, 02740371, 66533962 #### [facility] [address] [place] [address] Hemoglobin (Bld) [Mass/Vol] 15.6 g/dL Normal 13.5-17.5 [facility] Comment on above: Performed By: #### 2 611363, 8532210, 93056772, 6499427, 98682013, 40710229 #### [facility] [address] [place] [address] MCH (RBC) [Entitic mass] 32.3 pg Normal 27.0-34.0 [facility] Comment on above: Performed By: #### 2 589716, 5332595, 96477548, 7311696, 07420891, 78022705 #### [facility] [address] [place] [address] MCHC (RBC) [Mass/Vol] 35.2 g/dL Normal 33.3-35.7 [facility] Comment on above: Performed By: #### 2 183228, 9703524, 77248229, 4754816, 29822254, 72393542 #### [facility] [address] [place] [address] MCV (RBC) [Entitic vol] 91.8 fL Normal 80.0-100.0 [facility] Comment on above: Performed By: #### 2 115940, 3178678, 05724222, 0524699, 43264227, 80826153 #### [facility] [address] [place] [address] Platelet mean volume (Bld) [Entitic vol] 8.3 fL Normal 6.4-10.8 [facility] Comment on above: Performed By: #### 2 886648, 5139664, 11938123, 4805701, 05949006, 79272985 #### [facility] [address] [place] [address] Platelets (Bld) [#/Vol] 287.0 E9/L Normal 150.0-500.0 [facility] Comment on above: Performed By: #### 2 158155, 4321401, 94555609, 8126691, 23903024, 06407987 #### [facility] [address] [place] [address] RBC (Bld) [#/Vol] 4.8 E12/L Normal 4.3-5.9 [facility] Comment on above: Performed By: #### 2 349799, 4605168, 44702211, 5114261, 08057732, 23960881 #### [facility] [address] [place] [address] WBC corrected for nucl RBC Auto (Bld) [#/Vol] 8.5 E9/L Normal 4.0-11.0 [facility] Comment on above: Performed By: #### 2 366313, 8794237, 82027513, 0933526, 41267549, 74756807 #### [facility] [address] [place] [address] ED Clinical Summaryon 2018 ED Clinical Summary [address] [address] ED Clinical Summary Person Information Name: ABDIEL MANUEL [place] Age: 28 Years : 1990 12:00 AM Sex: Male Language: Maltese PCP: RIK NEWTON DO Marital Status: Phone: [phone] Visit Id: Visit Reason: Nausea; Chest pain; [...] 6:37 AM 01/17/2019 6:37 AM ADDRESS: [address] [id number] PHYS DOC NOTES: MEDICAL INFORMATION: Prescriptions Given: Prescription Display metoclopramide (Reglan 10 mg Tab) 10 mg = 1 tab(s), Oral, QIDACHS, # 28 tab(s), Refills(s) 0, Pharmacy: [facility]/pharmacy #[id number] omeprazole (omeprazole 40 mg Cap-DR) 40 mg = 1 cap(s), Oral, Daily, # 14 cap(s), Refills(s) 0, Pharmacy: [facility]/pharmacy #[id number] Home Meds Display cyclobenzaprine (cyclobenzaprine 10 [...] With: Address: When: RIK [place] [address] [employer] ([employer]by Within 2 to 3 days DIAGNOSIS: 1:Chest pain Normal [facility] ED Note-Physicianon 01-18-20 ED Note-Physician Basic [...] QIDACHS, # 28 tab(s), Refills(s) 0, Pharmacy: [facility]/pharmacy #[id number] omeprazole, 40 mg = 1 cap(s), [...] Within 2 to 3 days [address] [place] [address]- [facility] (1) Additional Instructions: Patient Education [...] Lymph Auto: 35.1 % (01/17/19 02:35:00 EDT) [place] Auto: 7.4 % (01/17/19 02:35:00 EDT) Eos Auto: 4 % (01/17/19 02:35:00 EDT) Basophil Auto: 0.8 % (01/17/19 02:35:00 EDT) Neutro Absolute: 4.5 E9/L (01/17/19 02:35:00 EDT) Lymph Absolute: 3 E9/L (01/17/19 02:35:00 EDT) [place] Absolute: 0.6 E9/L (01/17/19 02:35:00 EDT) Eos [...] rate of 95. No acute changes. Normal [facility] Comment on above: Result Comment: Elec [...] Document Reviewed: 11/08/2008 ExitCare? Patient Information ?2014 C-sam. This information is not intended to replace advice given to you by your health care provider. Make sure you discuss any questions you have with your health care provider. Normal [facility] ED Patient Summaryon 019 ED Patient Summary [address] [address] Patient Discharge Instructions Person Information Name: ABDIEL MANUEL Age: 28 Years Arrival Date: 01/17/2019 2:02 AM Discharge Diagnosis: 1:Chest pain Primary Care Physician: RIK NEWTON DO Provider Information Primary Provider: Alan Lan MD Advanced Cage Maker:None The exam and treatment you received in the Emergency Department were for an urgent problem and are not intended as complete care. It is important that you follow up with a doctor, nurse practitioner, or physician?s preschool teacher's assistant for ongoing care. If your symptoms [...] Address: When: RIK NEWTON [address] [place] [address] Business (1) Within 2 to 3 days In the event that this physician does not participate in your insurance network, please consult with your insurance company to find a nearby participating provider. Patient Education Materials: Chest Pain (Nonspecific) A MESSAGE TO ALL PATIENTS REGARDING OPIOIDS PRESCRIPTION OPIOIDS: WHAT YOU NEED TO KNOW Prescription opioids can be used to help relieve myybxlnq-qm-imhyss pain and are often prescribed following a [...] be struggling with addiction, tell your health care advocate and ask for guidance or call [facility]?S National Helpline at 4-948-752-FPZL. l Source: [place] Department of Health and Human Services/Center for Disease Control & Prevention [facility] Medications Given: Medication Dose Route No medications found. Medication Information: New Medications [id number], [address] [place] [id number], [phone] metoclopramide (Reglan 10 mg Tab) 1 Tabs [...] Comment: Pharmacy Information: Thank you for choosing [facility] Patient Education Materials: Chest Pain (Nonspecific) It [...] Document Reviewed: 11/08/2008 ExitCare? Patient Information ?2015 C-sam. This information is not intended to replace advice given to you by your health care provider. Make sure you discuss any questions you have with your health care provider. IKALEB JORDAN J , have received the following patient education materials/instruction s and have verbalized understanding: Patient Education Materials: Chest Pain (Nonspecific) Follow-up Instructions: With: Address: When: RIK NEWTON [address] [place] [address] [facility] (1) Within 2 to 3 days Prescriptions: [metoclopramide (Reglan 10 mg Tab)] [omeprazole (omeprazole 40 mg Cap-DR)] Patient Signature Date Clinician/Nurse Signature Date 01/17/19 06:37:27 Normal [facility] PT & PTTon 01-17-2019 aPTT Coag (PPP) [Time] 28.0 second(s) Normal 25.1-36.5 [facility] Comment on above: Result Comment: Hepa rin therapeutic range (represented by Anti-Factor Xa activity of 0.2 - 0.4 U/mL) corresponds to PTT of 56.6 - 109.0 sec. Performed By: #### 2 191852, 6629843, 90351848, 9857000, 23601163, 44986184 #### [facility] [address] [place] [address] INR Coag (PPP) [Relative time] 0.9 {INR} [facility] Comment on above: Result Comment: INR results are specifically intended to assess patients stabilized on long-term Anticoagulation therapy suggested INR?s ?Less Intensive Anticoagulation? 2.0 ? 3.0 Conventional Range 3.0 ? 4.5 Performed By: #### 2 [id number], [id number] #### [facility] [address] [place] [address] PT Coag (PPP) [Time] 10.6 second(s) Normal 10.2-12.9 [facility] Comment on above: Performed By: #### 2 [id number] #### [facility] [address] [place] [address] Troponin 0 Hr.on 01-17-2019 Troponin I.cardiac [Mass/Vol] ng/mL Normal <=0.03 [facility] Comment on above: Result Comment: New Troponin Assay 08/31/13 [place] Cutoff value > or = 0.03 ng/mL in conjunction with clinical conditions of myocardial infarction. (www.[email or web address].org/guidelines) Performed By: #### 2 [id number], [id number], [id number] #### [facility] [address] [place] [address] Troponin 3 Hr.on 01-17-2019 Troponin I.cardiac [Mass/Vol] ng/mL Normal <=0.03 [facility] Comment on above: Result Comment: New Troponin Assay 08/31/13 [place] Cutoff value > or = 0.03 ng/mL in conjunction with clinical conditions of myocardial infarction. (www.[email or web address].org/guidelines) Performed By: #### 1 [id number] #### [facility] [address] [place] [address] XR Chest Single Viewon 01-17 XR Chest [...] M.D. Transcribed by: BRENT Technologist: FREDIS Irene [facility] eGFRon 01-17-2019 GFR/1.73 sq M predicted among blacks MDRD (S/P/Bld) [Vol rate/Area] mL/min/{1.73_m2} Normal >=59 [facility] Comment on above: Order Comment: Order added by Discern Expert. Result Comment: eGFR is race adjusted. AA=. Performed By: #### 2 [id number] #### [facility] [address] [place] [address] GFR/1.73 sq M predicted among non-blacks MDRD (S/P/Bld) [Vol rate/Area] mL/min/{1.73_m2} Normal >=59 [facility] Comment on above: Order Comment: Order added by Discern Expert. Result Comment: Supervisor Stripping angie kidney disease could be indicated at eGFR's of less than 60 mL/min/1.73m2. Kidney failure is indicated at less than 15 mL/min/1.73m2. Performed By: #### 2 [id number] #### [facility] [address] [place] [address] Vital Signs Date Time Vital Sign Value Performing Clinician Mor horowitz 05-02-2024 16:30-0500 Body temperature 97.3 [degF] Donovan Imeldacarmelo DO Work Phone: [facility] [employer] 05-02-2024 16:30-0500 Diastolic blood pressure 80 mm[Hg] Donovan Chong DO Work Phone: [facility] 05-02-2024 16:30-0500 Heart rate 93 /min Donovan Imeldacarmelo [employer] Work Phone: [facility] 05-02-2024 16:30-0500 SaO2% (BldA) [Mass fraction] 98 % Donovan Chong DO Work Phone: [facility] 05-02-2024 16:30-0500 Systolic blood pressure 122 mm[Hg] Donovan Chong DO Work Phone: [facility] 11-11-2021 13:17-0400 Diastolic blood pressure 59 mm[Hg] Simone Krause Work Phone: [employer] 11-11-2021 13:17-0400 Heart rate 61 /min Simone Krause Work Phone: [facility] 11-11-2021 13:17-0400 SaO2% (BldA) [Mass fraction] 97 % Simone Krause Work Phone: [facility] 11-11-2021 13:17-0400 Systolic blood pressure 115 mm[Hg] Simone Krause Work Phone: [facility] 11-11-2021 11:56-0400 Body height 175.3 cm Simone Krause Work Phone: [facility] 11-11-2021 11:56-0400 Body mass index (BMI) [Ratio] 28.06 kg/m2 Simone Krause Work Phone: [facility] 11-11-2021 11:56-0400 Body temperature 97.59 [degF] Simone Krause Work Phone: [facility] 11-11-2021 11:56-0400 Body weight 86.18 kg Simone Krause Work Phone: [facility] 11-11-2021 11:56-0400 Respiratory rate 14 /min Simone Krause Work Phone: [facility] 06-26-2021 15:29-0500 Body height 175.3 cm Simone Krause Work Phone: [employer] 06-26-2021 15:29-0500 Body mass index (BMI) [Ratio] 28.06 kg/m2 Simone Krause Work Phone: [facility] 06-26-2021 15:29-0500 Body temperature 97.59 [degF] Simone Krause Work Phone: [employer] 06-26-2021 15:29-0500 Body weight 86.18 kg Simone Krause Work Phone: [employer] 06-26-2021 15:29-0500 Diastolic blood pressure 66 mm[Hg] Simone Krause Work Phone: [employer] 06-26-2021 15:29-0500 Heart rate 55 /min Simone Krause Work Phone: [employer] 06-26-2021 15:29-0500 Respiratory rate 18 /min Simone Krause Work Phone: [employer] 06-26-2021 15:29-0500 SaO2% (BldA) [Mass fraction] 99 % Simone Krause Work Phone: [employer] 06-26-2021 15:29-0500 Systolic blood pressure 109 mm[Hg] Simone Krause Work Phone: [employer] 06-18-2021 19:13-0500 Body temperature 97.3 [degF] Dea Swartz MD Work Phone: [employer] 06-18-2021 19:13-0500 Diastolic blood pressure 71 mm[Hg] Dea Swartz MD Work Phone: [facility] 06-18-2021 19:13-0500 Heart rate 62 /min Dea Swartz MD Work Phone: [employer] 06-18-2021 19:13-0500 Respiratory rate 19 /min Dea Swartz MD Work Phone: [facility] 06-18-2021 19:13-0500 SaO2% (BldA) [Mass fraction] 98 % Dea Swartz MD Work Phone: [employer] 06-18-2021 19:13-0500 Systolic blood pressure 123 mm[Hg] Dea Swartz MD Work Phone: [facility] Encounters Encounter Date Encounter Type Care Provider Facility Start: 05-02-2024 End: 05-02-2024 ambulatory DONOVAN CHONG Not Available Start: 05-02-2024 End: 05-02-2024 Office outpatient visit 25 minutes Donovan Chong DO Work Phone: [facility] Comment on above: Strain of neck muscl e, initial encounter; Cervical paraspinal muscle spasm; Neck pain Start: 11-11-2021 Emergency department patient visit [facility] Start: 11-11-2021 End: 11-11-2021 Emergency department patient visit [facility] Work Phone: [facility] Comment on above: Strain of lumbar reg ion, initial encounter (Primary Dx) Start: 06-26-2021 End: 06-26-2021 Emergency department patient visit [facility] Start: 06-26-2021 End: 06-26-2021 Emergency department patient visit [facility] Work Phone: [facility] Comment on above: Nephrolithiasis (Catrina adria Dx) Start: 06-18-2021 End: 06-18-2021 Emergency department patient visit [facility] Start: 06-18-2021 End: 06-18-2021 Emergency department patient visit Dea Swartz MD Work Phone: [facility] Comment on above: Kidney stone (Primar y Dx) Start: 06-10-2021 End: 06-13-2021 ambulatory [facility] Start: 06-10-2021 End: 06-12-2021 Subsequent hospital visit by physician [facility] MRI Comment on above: Left foot [...] 12-18-2021 Influenza vaccination Flu vaccine (# 1) [facility] Start: 12-18-2020 Influenza vaccination Flu vaccine (# 1) [facility] Start: 2008 DTaP/Tdap/Td vaccine (1 - Tdap) DTaP/Tdap/Td vaccine (1 - Tdap) [facility] Start: 10-30-2007 Hepatitis C screening Hepatitis C sc gissel [facility] Start: 2004 HIV screening HIV screen [facility] Start: 2001 Depression Screen Depression Screen [facility] Start: 1994 COVID-19 Vaccine (1) COVID-19 Vaccin e (1) [facility] Start: 1990 Varicella vaccine (1 of 2 - 2-dose childhood series) Varicella vaccine (1 of 2 - 2-dose childhood series) [facility] Start: 05-01-1990 COVID-19 Vaccine (#1) COVID-19 Vacci ne (#1) [facility] Start: 1989 Hepatitis C screening Hepatitis C [facility] Payers Date Payer Category Payer Private Health Insurance [employer]N [id number] 2021 Unknown [id number] 2021 Unknown [id number] 1989 Unknown [id number] 173 1989 Unknown [id number] 173 1989 Unknown [id number] 173 1989 Unknown [id number] 173 1989 Unknown [id number] 1989 Unknown [id number] [id number] 1989 Unknown [id number] 1259 1959 Unknown [id number] Social History Date Type Detail Facility Tobacco smoking status NHIS Tobacco smoking consumption unknown [employer] Phone: Start: 1989 Sex Assigned At Not on file [facility] [employer] Phone: Start: 06-18-2021 End: 11-11-2021 Tobacco smoking status NHIS Never smoked tobacco [employer] Phone: Start: 06-18-2021 End: 11-11-2021 Tobacco use and exposure Smokeless tobacco non-user [employer] Phone: Start: 06-18-2021 End: 11-11-2021 Alcohol intake Current drinker of alcohol (finding) [employer] Phone: Start: 06-18-2021 History SDOH Alcohol Comment Occ [employer] Phone: Start: 11-01-2021 End: 11-11-2021 Exposure to SARS-CoV-2 (event) Not sure [employer] Phone: Gender identity Not on file [facility] History of Present illness Narrative 05-02-2024 Cheryl Dominguez MA - 05/02/2024 4:15 PM EST Note Date & Type Note Facility 05-02-2024 History of Presen t illness Narrative HPI: Historian of HPI: patient Abdeil Manuel is a 33 y.o. male who [...] FROM Strength testing intact. Jobes sign negative. Acquisition Cost Estimator strength intact. Extremities: no clubbing, cyanosis, or [...] to 5 views documented in this encounter [facility] Discharge instructions 11-11-2021 Discharge InstructionsAttachments Note Date [...] through Care Everywhere.Back Pain: Relief: General Info (Maltese)Back: Strain (Maltese)documented in this encounter [facility] Phone: Hospital Discharge instructions 06-18-2021 Instructions Note Date & Type Note Facility 06-18-2021 Hospital Discharg e instructions Dea Swartz MD - 06/18/2021 Lab discussed with patient. Discharged with pain medication and Zofran for nausea. Symptoms not improving next 3 days patient to return to ED otherwise follow-up with primary care. documented in this encounter [employer] Phone: Evaluation note Note Date & Type Note Facility Evaluation note Diagnosis Left foot pain Pain in limb documented in this encounter [employer] Phone: Evaluation note Note Date & Type Note Facility Evaluation note Diagnosis Kidney stone- Primary Calculus of kidney documented in this encounter [employer] Phone: Evaluation note Note Date & Type Note Facility Evaluation note Diagnosis Nephrolithiasis- Primary Calculus of kidney documented in this encounter [employer] Phone: Evaluation note Note Date & Type Note Facility Evaluation note Diagnosis Strain of lumbar region, initial encounter- Primary documented in this encounter [facility] Phone: Evaluation note Note Date & Type Note Facility Evaluation note Diagnosis Strain of neck muscle, initial encounter Cervical paraspinal muscle spasm Spasm of muscle Neck pain Cervicalgia documented in this encounter [facility] Discharge instructions Attachments Note Date & Type Note Facility Hospital Discharge instructions The following attachments cannot be sent through Care Everywhere.Kidney Stone (Maltese)documented in this encounter [employer] Work Phone: Summary Purpose Family History No Family History Records FoundNo Family History Records FoundNo Family History Records FoundNo Family History Records Found Advance Directives No Advanced Directives Records FoundNo Advanced Directives Records FoundNo Advanced Directives Records FoundNo Advanced Directives Records Found Reason for Referral Specialty Diagnoses / Procedures [facility] Referred To Contact Radiology Diagnoses Left foot pain Procedures MRI FOOT LEFT WO CONTRAST Simone Krause [address] [place], [place] [id number] Referral ID Status Reason Start Date Expiration Date Visits Re quested Visits Authorized [id number] Closed 05/26/2021 07/25/2021 1 1 Additional Source Comments (unrecognized sect ion and content) No Status Records FoundNo Status Records FoundNo Status Records FoundNo Status Records Found INFORMATION SOURCE (unrecogn ized section and content) DATE CREATED AUTHOR [facility] DATE CREATED AUTHOR AUTHOR'S ORGANIZ ATION 11/20/2021 [facility] DATE CREATED AUTHOR AUTHOR'S ORGANIZ ATION 02/20/2022 [facility] DATE CREATED AUTHOR AUTHOR'S ORGANIZ ATION 05/06/2024 [facility]IC Reason for Visit (unrecogniz ed section and content) Specialty Diagnoses / Procedures Referred By [facility] Referred To Contact Radiology Diagnoses Left foot pain Procedures MRI FOOT LEFT WO CONTRAST Simone Krause [address] [place] [id number] Referral ID Status Reason Start Date Expiration Date Visits Re quested Visits Authorized [id number] Closed 05/26/2021 07/25/2021 1 1 Reason Comments Flank Pain Right side onset few hours ago - hx of kidney stones. Reason Comments Nephrolithiasis Pt reports he has no t been able to pass a kideny stone over the past week. C/o pain in bladder. Reason Comments Back Pain C/o right sided back pain with twisting injury Care Teams (unrecognized sec tion and content) [employer] Relationship Specialty Start Date End Date Simone Krause [address] [place] [id number] PCP - General 06/09/21 [employer] Relationship Specialty Start [place] [address] PCP - General 06/09/21 [employer] Relationship Specialty Start Date End Date Simone Krause[address] [place] [address] PCP - General 06/09/21 Ordered Prescriptions (unrec [...] BE BASED ON THE PRIMARY CLINICAL RECORDS. [employer] [facility]. provides no warranty or guarantee of the accuracy or completeness of information in this document.
--- NOTE | 2024-07-09 18:40 | PC.NURSE ---
steak stuck in throat, pt unable to swallow anything, secretions coming up and pt coughing at times. airway patent at this time.
[2024-07-09 18:41] VITALS: O2SAT 98
[2024-07-09] MEDS: GLUCAGON 1 MG/ML VIAL IV ×2 (19:29→20:16)
--- NOTE | 2024-07-09 19:29 | ED.GENADUL1 ---
HPI HPI - General Adult General Chief complaint: Skin/Abscess/Foreign Body Stated complaint: steak stuck in throat Time Seen by Provider: 07/09/24 19:18 Source: patient Mode of arrival: walk-in History of Present Illness HPI narrative: presents complaining of steak stuck in his throat. started over an hour ago. Not able to swallow his saliva. Mild nausea. Denies similar problems in the past. Not short of breath. Complains of abdominal pain. Related Data Home Medications ?Medication ?Instructions ?Recorded ?Confirmed cholecalciferol (vitamin D3) 50 50 mcg PO DAILY 10/11/23 10/11/23 mcg (2,000 unit) tablet (Vitamin D3) fluoxetine 20 mg capsule 80 mg PO DAILY 10/11/23 10/11/23 hydroxyzine HCl 50 mg tablet 50 mg PO BID 10/11/23 10/11/23 Previous Rx's ?Medication ?Instructions ?Recorded hydrocodone 5 mg-acetaminophen 325 1 tab PO Q6H PRN pain 2 days #8 06/09/24 mg tablet tabs Allergies Allergy/AdvReac Type Severity Reaction Status Date / Time No Known Drug Allergies Allergy Verified 06/09/24 21:21 Opioid HPI Opioid Management Most Recent Opioid Data: No Data to Display Review of Systems ROS Status of ROS 10 or more systems reviewed and unremarkable except as noted in history and below PFSH PFSH Social History Little interest or pleasure in doing things: not at all Feeling down, depressed, or hopeless: not at all Exam Constitutional Vital Signs, click to edit/add: Last Vital Signs Temp 98.4 F 07/09/24 18:33 Pulse 82 07/09/24 21:55 Resp 18 07/09/24 21:55 BP 147/92 H 07/09/24 18:33 Pulse Ox 99 07/09/24 21:55 O2 Del Method Room Air 07/09/24 18:41 Common normals: average body habitus, oriented x3, no limitations, healthy appearing, alert and well nourished [facility] Common normals: normocephalic and head/scalp atraumatic Respiratory Common normals: normal respiratory effort, no retractions, no use of accessory muscles and clear to auscultation bilaterally Cardio Common normals: regular rate, regular rhythm, S1 normal heart sound and S2 normal heart sound GI Common normals: Normal to inspection, nondistended, normoactive bowel sounds present, soft to palpation and non-tender Extremity Common normals: normal to inspection and full ROM Neuro Common normals: oriented x3, CN's II-XII intact bilaterally, moves all extremities and no focal motor deficits Psych Appearance: grossly normal Course Vital Signs Vital signs: Vital Signs Temperature 98.4 F 07/09/24 18:33 Pulse Rate 85 07/09/24 18:33 Respiratory Rate 18 07/09/24 18:33 Blood Pressure 147/92 H 07/09/24 18:33 Pulse Oximetry 99 07/09/24 18:33 Oxygen Delivery Method Room Air 07/09/24 18:33 Temperature 98.4 F 07/09/24 18:33 Pulse Rate 82 07/09/24 21:55 Respiratory Rate 18 07/09/24 21:55 Blood Pressure 147/92 H 07/09/24 18:33 Pulse Oximetry 99 07/09/24 21:55 Oxygen Delivery Method Room Air 07/09/24 18:41 Medical Decision Making MDM Narrative Medical decision making narrative: patient presents with meat impaction. 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 Not able to swallow his saliva. Was eating steak. Denies past history of similar problems. Treated with cocktail of Glucagon, reglan and ativan without success. Discussed with GI at [facility] Dr Nunn who is agreeable to have the patient admitted to [facility]. Hospitalist paged for admission Lab Data Labs: Lab Results 07/09/24 Range/Units 18:45 WBC 8.4 (4.0-11.0) 10^3/uL RBC 4.80 (4.70-6.10) 10^6/uL Hgb 15.4 (14.0-18.0) g/dL Hct 44.4 (42.0-54.0) % MCV 92.5 (80.0-94.0) fL MCH 32.1 (25.9-34.0) pg MCHC 34.7 (29.9-35.2) g/dL RDW 12.8 (11.0-15.0) % Plt Count 313 (150-450) 10^3/uL MPV 11.5 (9.5-13.5) fL Neut % (Auto) 44.8 (43.0-75.0) % Lymph % (Auto) 39.0 (20.5-60.0) % [place] % (Auto) 8.8 (1.7-12.0) % Eos % (Auto) 5.8 (0.9-7.0) % Baso % (Auto) 1.5 (0.2-2.0) % Neut # (Auto) 3.8 (1.4-6.5) 10^3/uL Lymph # (Auto) 3.3 (1.2-3.8) 10^3/uL [place] # (Auto) 0.7 (0.3-0.8) 10^3/uL Eos # (Auto) 0.5 (0.0-0.7) 10^3/uL Baso # (Auto) 0.1 (0.0-0.1) 10^3/uL Abs Immat Gran (auto) 0.01 (0.00-0.03) 10^3/uL Imm/Tot Granulo (auto) 0.1 (0.0-0.5) % Sodium 144 (136-145) mmol/L Potassium 3.3 L (3.5-5.1) mmol/L Chloride 106 (98-107) mmol/L Carbon Dioxide 25.5 (21.0-32.0) mmol/L Anion Gap 15.8 BUN 12.0 (7.0-18.0) mg/dL Creatinine 1.29 (0.70-1.30) mg/dL Est GFR ( Amer) >60 (>=60 mL/min/1.73m^2) Est GFR (Non-Af Amer) >60 (>=60 mL/min/1.73m^2) BUN/Creatinine Ratio 9.3 Glucose 108 H (74-106) mg/dL Calcium 9.3 (8.5-10.1) mg/dL Total Bilirubin 0.5 (0.2-1.0) mg/dL AST 25 (15-37) U/L ALT 36 (16-63) U/L Alkaline Phosphatase 86 (46-116) U/L Total Protein 7.9 (6.4-8.2) g/dL Albumin 3.7 (3.4-5.0) g/dL Globulin 4.2 g/dL Albumin/Globulin Ratio 0.9 Discharge Plan Discharge Chief Complaint: Skin/Abscess/Foreign Body Clinical Impression: Esophageal foreign body Patient Disposition: Xfer Acute Care Hospital Discharge [facility]
[2024-07-09 19:42] LABS: Basophils Absolute Auto 0.1 10^3/uL (0.0-0.1); Basophils Percent Auto 1.5 % (0.2-2.0); Eosinophils Absolute Auto 0.5 10^3/uL (0.0-0.7); Eosinophils Percent Auto 5.8 % (0.9-7.0); Hematocrit 44.4 % (42.0-54.0); Hemoglobin 15.4 g/dL (14.0-18.0); Immature Granulocytes Abs Auto 0.01 10^3/uL (0.00-0.03); Immature Granulocytes Pct Auto 0.1 % (0.0-0.5); Lymphocytes Absolute Auto 3.3 10^3/uL (1.2-3.8); Mean Corpuscular HGB Conc 34.7 g/dL (29.9-35.2); Mean Corpuscular Hemoglobin 32.1 pg (25.9-34.0); Mean Corpuscular Volume 92.5 fL (80.0-94.0); Mean Platelet Volume 11.5 fL (9.5-13.5); Monocytes Absolute Auto 0.7 10^3/uL (0.3-0.8); Monocytes Percent Auto 8.8 % (1.7-12.0); Neutrophils Absolute Auto 3.8 10^3/uL (1.4-6.5); Neutrophils Percent Auto 44.8 % (43.0-75.0); Platelet Count 313 10^3/uL (150-450); Red Cell Distribution Width 12.8 % (11.0-15.0); White Blood Count 8.4 10^3/uL (4.0-11.0)
[2024-07-09 19:52] LABS: Alanine Aminotransferase 36 U/L (16-63); Albumin Globulin Ratio 0.9; Albumin Level 3.7 g/dL (3.4-5.0); Alkaline Phosphatase 86 U/L (46-116); Anion Gap 15.8; Aspartate Amino Transferase 25 U/L (15-37); BUN Creatinine Ratio 9.3; Bilirubin Total 0.5 mg/dL (0.2-1.0); Calcium 9.3 mg/dL (8.5-10.1); Carbon Dioxide 25.5 mmol/L (21.0-32.0); Chloride 106 mmol/L (98-107); Estimated GFR (African America >60 (>=60 mL/min/1.73m^2); Estimated GFR (Non-African Ame >60 (>=60 mL/min/1.73m^2); Globulin 4.2 g/dL; Glucose 108 mg/dL (74-106); Potassium 3.3 mmol/L (3.5-5.1); Sodium 144 mmol/L (136-145); Total Protein 7.9 g/dL (6.4-8.2)
[2024-07-09] MEDS: LORAZEPAM 2 MG/ML VIAL 1 MG IV (20:16)
[2024-07-09 21:55] VITALS: PULSE 82; O2SAT 99
[2024-07-09 22:00] VITALS: O2SAT 99
== END 2024-07-09 22:00 | disposition short-term general hospital (02) ==
PROVIDERS: Emergency Provider Internal Medicine
DX: T18.128A Food in esophagus causing other injury, initial encounter (principal); W44.F3XA Food entering into or through a natural orifice, initial encounter
CPT/HCPCS: 36415; 80053; 85025; 96374; 96375; 96376; 99285; J1610; J2060

== ENCOUNTER 2024-08-27 16:35 | Emergency (ER) | payer OTHER, SELFPAY ==
[2024-08-27 16:38] VITALS: BP 129/86; PULSE 68; TEMP 36.9; O2SAT 95; BMI 26.0
[2024-08-27] MEDS: ADACEL DIPH,PERTUSS(ACELL),TET VAC/PF 0.5 ML ADULT SYRINGE IM (16:58)
[2024-08-27] MEDS: LIDOCAINE HCL 1% 100 MG/10 ML MDV INJ (16:58)
[2024-08-27] MEDS: LIDOCAINE/EPINEPHRINE/TETRACAINE 3 ML GEL.PF.APP TOPICAL (17:00)
--- OUTSIDE RECORDS SUMMARY | 2024-08-27 17:04 | XMS_ITS | CCD ---
Author Organization [facility] Care Team Providers Care Payroll Auditor Name Role Phone Simone Krause Primary Care Provider SIMONE KRAUSE Primary Care Unavailable DEA SWARTZ Attending Unavailable SIMONE KRUASE Primary Care Unavailable SIMONE KRAUSE Primary Care Unavailable SIMONE KRAUSE Referring Unavailable JIMI, SIMONE Primary Care Unavailable TAMERA, DR HOUSE Consulting Unavailable TAMERA, DR HOUSE Attending Unavailable CARLTON, DR MENDOZA Primary Care Unavailable TAMERA, DR HOUSE Admitting Unavailable TIMOTEOCHRISSIE Consulting Unavailable JAVON CHONG Attending Unavailable JAVON CHONG Referring Unavailable Unavailable Primary Care Provider Unavailrebekah Newton (Clinic) Rik NELSON Primary Care Provider Emory Anthony MD Admit Provider Danette Carbaajl MD Attending Provider Sascha Valdes MD Other Provider Kj Stephens APRN Other Provider Sushma Rico MD Other Provider Juliette Lay DO Other Provider David Lam APRN Other Provider Emory Anthony Admitting Unavailable Deborah (Clinic)Rik Primary Care UnavailDanette Sotelo Attending Unavailable Sascha Valdes Consulting Unavailable Kj Stephens Consulting Unavailable Sushma Rico Consulting Unavailable Juliette Lay Consulting Unavailable David Lam Consulting Unavailable Allergies Allergy Classification Reported Allergen(s) Allergy Type Date of Onset Reaction(s) Facility (5 sources) Shellfish-Deriv ed Products Propensity to adverse reactions to drug 2 [facility] (1 source) Bee pollen Drug Allergy 2 [facility] (1 source) Bee pollen Drug allergy (disorder) [facility] (1 source) Shellfish Drug allergy (disorder) [facility] (2 sources) Bee pollen Propensity to adverse reactions 2 [facility] (2 sources) Fish Oils Drug Allergy 3 [facility] (2 sources) Shellfish; Translations: [shellfish derived] Propensity to adverse reactions 5 Swelling of Lip/Tongue/Thro at [facility] (2 sources) venom-honey bee; Translations: [venom-honey bee] Propensity to adverse reactions 5 Swelling [facility] Medications Current Medications Medication Drug Class(es) Dates Sig (Normalized) Sig (Original) acetaminophen 325 mg / oxyCODONE hydrochloride 5 mg oral tablet (1 source) Opioid Agonist Start: 06-18-2021 End: 06-21-2021 oxyCODONE-acetami nophen (PERCOCET) 5-325 MG per tablet Indications: Kidney stone Take 1 tablet by mouth every 6 hours as needed for Pain for up to 3 days. Intended supply: 3 days. Take lowest dose possible to manage pain 10 tablet 0 06/18/2021 06/21/2021 Active FLUoxetine 40 mg oral capsule (3 sources) Serotonin Reuptake Inhibitor Start: 07-09-2024 take 2 capsules by mouth once daily in the morning Fluoxetine (Prozac) 40 mg capsule Active 80 MG PO Every morning July 09, 2024 12:00am Start: 11-25-2023 FLUoxetine (ME Ozac) 20 MG capsule Take 80 mg by mouth 11/25/2023 Active hydrOXYzine hydrochloride 50 mg oral tablet (1 source) Antihistamine Start: 07-09-2024 take 1 tablet by mouth twice daily Hydroxyzine Hcl 50 mg tablet Active 50 MG PO Twice daily July 09, 2024 12:00am ibuprofen 800 mg oral tablet (1 source) [...] needed for Nausea or Vomiting 0 Active pantoprazole 40 mg delayed release oral tablet (1 source) Proton Pump Inhibitor Start: 07-10-2024 take 1 tablet by mouth twice daily Pantoprazole 40 mg Tablet,Delayed Release (Dr/Ec) Active 40 MG PO Twice daily 60 July 10, 2024 12:00am SUMAtriptan 50 mg oral tablet (2 sources) [...] days 4 capsule 0 06/26/2021 Active topiramate 100 mg oral tablet (3 sources) Start: 07-09-2024 take 1 tablet by mouth twice daily Topiramate (Topamax) 100 mg tablet Active 100 MG PO Twice daily July 09, 2024 12:00am topiramate (Topa max) 25 MG tablet Take by mouth 2 [...] Translations: [Encounter for examination for recruitment to armed [employer] Onset: 05-02-2024 05-02-2024 Episodic Anxiety disorders (4 [...] penetrating into dentin] Onset: 05-02-2024 05-02-2024 Episodic Esophageal disorders (2 sources) Ulcer of esophagus; Translations: [Ulcer of esophagus without bleeding] Onset: 07-09-2024 07-10-2024 Chronic Esophageal disorders (1 source) Esophagitis; Translations: [Esophagitis] 07-10-2024 Episodic Essential hypertension (1 source) Essential (primary) hypertension; Translations: [ESSENTIAL PRIMARY HYPERTENSION] Onset: 10-08-2020 Chronic Fluid and electrolyte disorders (2 sources) Hypokalemia; Translations: [Hypokalemia] Onset: 05-02-2024 05-02-2024 Episodic Gastritis and duodenitis (2 sources) Duodenitis; Translations: [Duodenitis without bleeding] Onset: 07-09-2024 07-10-2024 Episodic Headache; including migraine (2 sources) Migraine [...] Translations: [Disorder of muscle, unspecified] Onset: 05-02-2024 5 Episodic Other eye disorders (2 sources) Exotropia; Translations: [Unspecified exotropia] Onset: 05-02-2024 05-02-2024 Episodic Other injuries and conditions due to external causes (1 source) Food lodged in esophagus; Translations: [Food in esophagus causing other injury, initial encounter] 07-09-2024 Episodic Other injuries and conditions due to external causes (2 sources) Food in esophagus causing other injury, initial encounter; Translations: [Foreign body in esophagus] Onset: 07-09-2024 07-10-2024 Episodic Other male genital disorders (2 sources) [...] Translations: [PERSONAL HISTORY OF COVID-19] Onset: 10-08-2020 Unclassified (1 source) Food entering into or through a natural orifice, initial encounter; Translations: [Food entering into or through a natural orifice, initial encounter] Onset: 07-09-2024 Unclassified (1 source) Esophagitis, unspecified without bleeding; Translations: [Esophagitis, unspecified without bleeding] Onset: 07-09-2024 Past or Other Problems Problem Classification Problem Date Documented Date Episodic/Chronic Calculus of urinary tract (3 sources) Kidney stone; Translations: [Calculus of kidney] Onset: 10-08-2020 Episodic Other diseases of kidney and ureters (1 source) Hydronephrosis with renal and ureteral calculous obstruction; Translations: [HYDRONPHROS RENL AND URETRL CALCUL OBST] Onset: 10-08-2020 Episodic Results Test Name Value Interpretation Reference Range Facility Alanine aminotransferase [En zymatic activity/volume] in Serum or PlasmaOrdered By: Danette Carbajal on 07-10-2024 ALT [Catalytic activity/Vol] Alanine aminotransferase [Enzymatic activity/volume] in Serum or Plasma [facility] Albumin [Mass/volume] in Ser um or Plasma by Bromocresol green (BCG) dye binding methoOrdered By: Danette Carbajal on 07-10-2024 Albumin BCG dye [Mass/Vol] Albumin [Mass/volume] in Serum or Plasma by Bromocresol green (BCG) dye binding metho 3.5-5.7 [facility] Alkaline phosphatase [Enzyma tic activity/volume] in Serum or PlasmaOrdered By: Danette Carbajal on 07-10-2024 ALP [Catalytic activity/Vol] Alkaline phosphatase [Enzymatic activity/volume] in Serum or Plasma 34-104 [facility] Aspartate aminotransferase [ Enzymatic activity/volume] in Serum or PlasmaOrdered By: Danette Carbajal on 07-10-2024 AST [Catalytic activity/Vol] Aspartate aminotransferase [Enzymatic activity/volume] in Serum or Plasma 13-39 [facility] Basic Metabolic Panelon 06-18 Anion gap [Moles/Vol] 8.9 mmol/L Normal 6.0-15.0 [facility] Comment on above: Performed By: #### B MP, CBC, PT, HEPATIC #### [facility] [address] [place] [address] [place] Calcium [Mass/Vol] 8.7 mg/dL Normal 8.6-10.3 [facility] Comment on above: Performed By: #### B MP, CBC, PT, HEPATIC #### [facility] [address] [place] [id number] [place] Chloride [Moles/Vol] 110 mmol/L High 98-107 [facility] Comment on above: Performed By: #### B MP, CBC, PT, HEPATIC #### [facility] [address] [place] [address] [place] CO2 [Moles/Vol] 28.3 mmol/L Normal 21.0-31.0 [facility] Comment on above: Performed By: #### B MP, CBC, PT, HEPATIC #### [facility] [address] [place] [address] [place] Creatinine [Mass/Vol] 1.03 mg/dL Normal 0.70-1.30 [facility] Comment on above: Performed By: #### B MP, CBC, PT, HEPATIC #### [facility] [address] [place] [id number] [place] Creatinine Clr Calc Pharmacy 109.86 Normal [facility] Comment on above: Result Comment: PERF ORMED BY: [place] [address] PATHOLOGIST ROUGH RICE TENDER CLEOPATRA RAZO M.D. Performed By: #### B MP, CBC, PT, HEPATIC #### [place] [address] [place] GFR/1.73 sq M.predicted MDRD (S/P/Bld) [Vol rate/Area] mL/min/{1.73_m2} Normal [facility] Comment on above: Performed By: #### B MP, CBC, PT, HEPATIC #### [address] Glucose [Mass/Vol] 91 mg/dL Normal 70-100 [facility] Comment on above: Result Comment: [place] Glucose Reference Range is dependent on time and content of last meal. Glucose of more than 200 mg/dL in a nonstressed, ambulatory subject supports the diagnosis of Diabetes Mellitus. ADA recommended reference range Performed By: #### B MP, CBC, PT, HEPATIC #### [address] Potassium [Moles/Vol] 4.2 mmol/L Normal 3.5-5.1 [facility] Comment on above: Performed By: #### B MP, CBC, PT, HEPATIC #### [place] [address] [place] Sodium [Moles/Vol] 143 mmol/L Normal 136-145 [facility] Comment on above: Performed By: #### B MP, CBC, PT, HEPATIC #### [place] [address] [place] Urea nitrogen [Mass/Vol] 13 mg/dL Normal 7-25 [facility] Comment on above: Performed By: #### B MP, CBC, PT, HEPATIC #### [place] [address] [place] Basophils Auto (Bld) [#/Vol] Ordered By: Emory Anthony on 07-10-2024 Basophils (Bld) [#/Vol] Automated basophil count 0.0-0.2 [facility] Basophils/100 WBC Auto (Bld) Ordered By: Emory Anthony on 07-10-2024 Basophils/100 WBC (Bld) Automated basophil % . [facility] Bilirubin.direct [Mass/volum e] in Serum or PlasmaOrdered By: Danette Carbajal on 07-10-2024 Bilirubin.direct [Mass/Vol] Bilirubin.direct [Mass/volume] in Serum or Plasma 0.03-0.18 [facility] Bilirubin.total [Mass/volume ] in Serum or PlasmaOrdered By: Danette Carbajal on 07-10-2024 Bilirubin [Mass/Vol] Bilirubin.total [Mass/volume] in Serum or Plasma 0.3-1.0 [facility] Calcium [Mass/volume] in Ser um or PlasmaOrdered By: Emory Anthony on 07-10-2024 Calcium [Mass/Vol] Calcium [Mass/volume ] in Serum or Plasma 8.6-10.3 [facility] Carbon dioxide, total [Moles /volume] in Serum or PlasmaOrdered By: Emory Anthony on 07-10-2024 CO2 [Moles/Vol] Carbon dioxide, tota l [Moles/volume] in Serum or Plasma 21.0-31.0 [facility] Chloride [Moles/volume] in S darryl or PlasmaOrdered By: Emory Anthony on 07-10-2024 Chloride [Moles/Vol] Chloride [Moles/vol ume] in Serum or Plasma High 98-107 [facility] Complete Blood Count Auto Di ffon 07-10-2024 Basophils (Bld) [#/Vol] 0.1 10*3/uL Normal 0.0-0.2 [facility] Comment on above: Result Comment: PERF ORMED BY: [place] [address] PATHOLOGIST ROUGH RICE TENDER CLEOPATRA RAZO M.D. Performed By: #### B MP, CBC, PT, HEPATIC #### [address] Basophils/100 WBC (Bld) 1.3 % Normal . [facility] Comment on above: Performed By: #### B MP, CBC, PT, HEPATIC #### [address] Eosinophils (Bld) [#/Vol] 0.6 10*3/uL High 0.0-0.45 [facility] Comment on above: Performed By: #### B MP, CBC, PT, HEPATIC #### [address] Eosinophils/100 WBC (Bld) 6.4 % Normal . [facility] Comment on above: Performed By: #### B MP, CBC, PT, HEPATIC #### [address] Erythrocyte distribution width (RBC) [Ratio] 13.9 % Normal 12.0-14.8 [facility] Comment on above: Performed By: #### B MP, CBC, PT, HEPATIC #### [address] Hematocrit (Bld) [Volume fraction] 41.2 % Normal 38.8-50.0 [facility] Comment on above: Performed By: #### B MP, CBC, PT, HEPATIC #### [address] Hemoglobin (Bld) [Mass/Vol] 14.2 g/dL Normal 13.0-17.0 [facility] Comment on above: Performed By: #### B MP, CBC, PT, HEPATIC #### [address] Lymphocytes (Bld) [#/Vol] 2.8 10*3/uL Normal 1.00-4.8 [facility] Comment on above: Performed By: #### B MP, CBC, PT, HEPATIC #### [address] Lymphocytes/100 WBC (Bld) 32.9 % Normal . [facility] Comment on above: Performed By: #### B MP, CBC, PT, HEPATIC #### [place] [address] [place] MCH (RBC) [Entitic mass] 31.7 pg Normal 27.5-35.2 [facility] Comment on above: Performed By: #### B MP, CBC, PT, HEPATIC #### [address] MCV (RBC) [Entitic vol] 92.2 fL Normal 83.5-101 [facility] Comment on above: Performed By: #### B MP, CBC, PT, HEPATIC #### [address] Mean Corpuscular HGB Conc 34.3 g/dL Normal 32.5-35.6 [facility] Comment on above: Performed By: #### B MP, CBC, PT, HEPATIC #### [address] Monocytes (Bld) [#/Vol] 0.7 10*3/uL Normal 0.0-0.8 [facility] Comment on above: Performed By: #### B MP, CBC, PT, HEPATIC #### [address] Monocytes/100 WBC (Bld) 8.1 % Normal . [facility] Comment on above: Performed By: #### B MP, CBC, PT, HEPATIC #### [address] Neutrophils (Bld) [#/Vol] 4.4 10*3/uL Normal 1.8-7.7 [facility] Comment on above: Performed By: #### B MP, CBC, PT, HEPATIC #### [address] Neutrophils/100 WBC (Bld) 51.3 % Normal . [facility] Comment on above: Performed By: #### B MP, CBC, PT, HEPATIC #### [address] NRBC% 0.1 /100{WBC} Normal 0-0.5 [facility] Comment on above: Performed By: #### B MP, CBC, PT, HEPATIC #### [facility] [address] Platelet mean volume (Bld) [Entitic vol] 9.0 fL Normal 6.6-10.1 [facility] Comment on above: Performed By: #### B MP, CBC, PT, HEPATIC #### [facility] [address] [place] [id number] [facility] Platelets (Bld) [#/Vol] 277 10*3/uL Normal 150-450 [facility] Comment on above: Performed By: #### B MP, CBC, PT, HEPATIC #### [facility] [address] [place] [address] [place] RBC (Bld) [#/Vol] 4.47 10*6/uL Normal 3.90-5.60 [facility] Comment on above: Performed By: #### B MP, CBC, PT, HEPATIC #### [facility] [address] [place] [id number] [place] WBC (Bld) [#/Vol] 8.6 10*3/uL Normal 4.1-10.5 [facility] Comment on above: Performed By: #### B MP, CBC, PT, HEPATIC #### [facility] [address] Creatinine [Mass/volume] in Serum or PlasmaOrdered By: Emory Anthony on 07-10-2024 Creatinine [Mass/Vol] Creatinine [Mass/v olume] in Serum or Plasma 0.70-1.30 [facility] Eosinophils Auto (Bld) [#/Vo l]Ordered By: Emory Anthony on 07-10-2024 Eosinophils (Bld) [#/Vol] Automated eosinophil count High 0.0-0.45 [facility] Eosinophils/100 WBC Auto (Bl d)Ordered By: Emory Anthony on 07-10-2024 Eosinophils/100 WBC (Bld) Automated eosinophil % . [facility] Erythrocyte distribution wid th Auto (RBC) [Ratio]Ordered By: Emory Anthony on 07-10-2024 Erythrocyte distribution width (RBC) [Ratio] Erythrocyte distribution width [Ratio] by Automated count 12.0-14.8 [facility] Globulin Calc (S) [Mass/Vol] Ordered By: Danette Carbajal on 07-10-2024 Globulin (S) [Mass/Vol] Serum globulin measurement by calculation (mass/volume) [facility] Glucose [Mass/volume] in Ser um or PlasmaOrdered By: Emory Anthony on 07-10-2024 Glucose [Mass/Vol] Glucose [Mass/volume ] in Serum or Plasma 70-100 [facility] Comment on above: ADA recommended refe rence rangeRandom Glucose Reference Range is dependent on time and content of last meal. Glucose of more than 200 mg/dL in a nonstressed, ambulatory subject supports the diagnosis of Diabetes Mellitus. Hematocrit Auto (Bld) [Volum e fraction]Ordered By: Emory Anthony on 07-10-2024 Hematocrit (Bld) [Volume fraction] Hematocrit [Volume Fraction] of Blood by Automated count 38.8-50.0 [facility] Hemoglobin [Mass/volume] in BloodOrdered By: Emory Anthony on 07-10-2024 Hemoglobin (Bld) [Mass/Vol] Hemoglobin [Mass/volume] in Blood 13.0-17.0 [facility] Hepatic Panelon 07-10-2024 Albumin [Mass/Vol] 4.0 g/dL Normal 3.5-5.7 [facility] Comment on above: Performed By: #### B MP, CBC, PT, HEPATIC #### [facility] [address] [place] [id number] [place] Albumin/Globulin [Mass ratio] 1.5 {ratio} Normal [facility] Comment on above: Performed By: #### B MP, CBC, PT, HEPATIC #### [facility] [address] [place] [address] [place] ALP [Catalytic activity/Vol] 70 U/L Normal 34-104 [facility] Comment on above: Performed By: #### B MP, CBC, PT, HEPATIC #### [facility] [address] [place] [address] [place] ALT [Catalytic activity/Vol] 23 U/L Normal 7-52 [facility] Comment on above: Performed By: #### B MP, CBC, PT, HEPATIC #### [facility] [address] AST [Catalytic activity/Vol] 18 U/L Normal 13-39 [facility] Comment on above: Performed By: #### B MP, CBC, PT, HEPATIC #### [facility] [address] Bilirubin [Mass/Vol] 0.7 mg/dL Normal 0.3-1.0 [facility] Comment on above: Performed By: #### B MP, CBC, PT, HEPATIC #### [facility] [address] Bilirubin,Indirect 0.6 mg/dL Normal [facility] Comment on above: Performed By: #### B MP, CBC, PT, HEPATIC #### [facility] [address] Bilirubin.indirect [Mass/Vol] 0.10 mg/dL Normal 0.03-0.18 [facility] Comment on above: Performed By: #### B MP, CBC, PT, HEPATIC #### [facility] [address] [place] [address] [place] Globulin (S) [Mass/Vol] 2.6 g/dL Normal [facility] Comment on above: Performed By: #### B MP, CBC, PT, HEPATIC #### [facility] [address] [place] [address] [place] Protein [Mass/Vol] 6.6 g/dL Normal 6.4-8.9 [facility] Comment on above: Performed By: #### B MP, CBC, PT, HEPATIC #### [facility] [address] [place] [id number] [place] INR in Platelet poor plasma by Coagulation assayOrdered By: Emory Anthony on 07-10-2024 INR Coag (PPP) [Relative time] INR in Platelet poor plasma by Coagulation assay [facility] Comment on above: INR Therapeutic Rang e A) Pre- and Peroperative OAT started two weeks before surgery. NOT HIP SURGERY: 1.5 - 2.5 HIP SURGERY: 2 - 3B) Primary and secondary prevention of venous THROMBOSIS: 2 - 3C) Active venous thrombosis, pulmonary embolismand prevention of recurrent venous thrombosis: 2 - 3D) Prevention of arterial thromboembolismincluding patients with mechanical heart valves: 3 - 4.5 [place] 07-10-2024 L ----- Specimen: [id number] Received: 07/10/24 Status: SUPRIYA Toussaint Num: [id number] Spec Type: Surgical Subm Dr: Sushma Rico MD Tissues: A Gastric Biopsy (GASTRIC BX) B Esophagus Biopsy (DISTAL ESOPHAGUS BX) C Esophagus Biopsy (PROXIMAL ESOPHAGUS BX) Procedures: PAS - LGRN/2, HE/6, Gross/Micro L4/3, H PYLORI Age/ Patient Sex Location Account Attending Physician Abdiel Manuel/M 4N [id number] Danette Carbajal MD SPEC NUM: [id number] RECD: 07/10/24 STATUS: SUPRIYA TOUSSAINT NUM: [id number] NEFTALI: 07/10/[address] [facility] [address]: Sushma Rico MD ENTERED: 07/10/24 [facility] DR: SPEC TYPE: Surgical DEPT: S ENTERED BY: [id number] RECV BY: [id number] ORDERED: PAS - LGRN/2, HE/6, Gross/Micro L4/3, H PYLORI ORDERED: PAS - LGRN/2, HE/6, Gross/Micro L4/3, H PYLORI Pathological Diagnosis A. Stomach, biopsy: - Antral and oxyntic type gastric mucosa with minimal chronic inactive gastritis. - No Helicobacter pylori microorganisms identified with immunohistochemical stain. B. Distal esophagus, biopsy: - Consistent with eosinophilic esophagitis (8/HPF). - Scant glandular mucosa with no evidence of intestinal metaplasia/Castellano's type mucosa identified. - PAS stain negative for fungal elements. C. Proximal esophagus, biopsy. - Consistent with eosinophilic esophagitis (>15/HPF). - No glandular mucosa present. - PAS stain negative for fungal elements. Clinical Information Food impaction. Part A rule out H. pylori, Part B and Part C rule out eosinophilic esophagitis Specimen: [id number] Received: 07/10/24 Status: SUPRIYA Toussaint Num: [id number] Spec Type: Surgical Subm Dr: Sushma Rico MD Tissues: A Gastric Biopsy (GASTRIC BX) B Esophagus Biopsy (DISTAL ESOPHAGUS BX) C Esophagus Biopsy (PROXIMAL ESOPHAGUS BX) Procedures: PAS - LGRN/2, HE/6, Gross/Micro L4/3, H PYLORI Patient: Abdiel Manuel [id number] (Continued) Specimen: [id number] Received: 07/10/24 (Continued) Signed (signature on file) Emre Behtea MD 07/11/24 1514 Specimen: [id number] Received: 07/10/24 Status: SUPRIYA Toussaint Num: [id number] Spec Type: Surgical Subm Dr: Sushma Rico MD Tissues: A Gastric Biopsy (GASTRIC BX) B Esophagus Biopsy (DISTAL ESOPHAGUS BX) C Esophagus Biopsy (PROXIMAL ESOPHAGUS BX) Procedures: PAS - LGRN/2, HE/6, Gross/Micro L4/3, H PYLORI Patient: Abdiel Manuel [id number] (Continued) Specimen: [id number] Received: 07/10/24-3 (Continued) Gross Description Part A is received in formalin labeled with the patients name, date of , and gastric BX are two guteirrez-davis, focally erythematous, friable, 0.3 and 0.4 cm in greatest dimension tissue bits. The specimen is entirely submitted in a single cassette. (1, ns, [id number] A) JG Part B is received in formalin labeled with the patients name, date of , and distal esophagus BX are two pale davis, focally erythematous, feathery, 0.2 and 0.3 cm in greatest dimension tissue bits. The specimen is entirely submitted in a single cassette. (1, ns, [id number] B) JG Part C is received in formalin labeled with the patients name, date of , and proximal esophagus BX are three pale davis, feathery, 0.2, 0.2 and 0.3 cm in greatest dimension tissue bits. The specimen is entirely submitted in a single cassette. (1, ns, [id number] C) Microscopic Description A-C: Microscopic examination is performed. CPT Codes 32353 x3, 43836, 66433 x2 Specimen: [id number] Received: 07/10/24 Status: SUPRIYA Toussaint Num: [id number] Spec Type: Surgical Subm Dr: Sushma Rico MD Tissues: A Gastric Biopsy (GASTRIC BX) B Esophagus Biopsy (DISTAL ESOPHAGUS BX) C Esophagus Biopsy (PROXIMAL ESOPHAGUS BX) Procedures: PAS - LGRN/2, HE/6, Gross/Micro L4/3, H PYLORI ---- (more content not included)... Normal [facility] Leukocytes [#/volume] correc rona for nucleated erythrocytes in Blood by Automated counOrdered By: Emory Anthony on 07-10-2024 WBC corrected for nucl RBC Auto (Bld) [#/Vol] Leukocytes [#/volume] corrected for nucleated erythrocytes in Blood by Automated coun 4.1-10.5 [facility] Lymphocytes Auto (Bld) [#/Vo l]Ordered By: Emory Anthony on 07-10-2024 Lymphocytes (Bld) [#/Vol] Lymphocytes [#/volume] in Blood by Automated count 1.00-4.8 [facility] Lymphocytes/100 WBC Auto (Bl d)Ordered By: Emory Anthony on 07-10-2024 Lymphocytes/100 WBC (Bld) Lymphocytes/100 leukocytes in Blood by Automated count . [facility] MCH Auto (RBC) [Entitic mass ]Ordered By: Emory Anthony on 07-10-2024 MCH (RBC) [Entitic mass] MCH [Entitic mass] by Automated count 27.5-35.2 [facility] MCHC Auto (RBC) [Mass/Vol]Or dered By: Emory Anthony on 07-10-2024 MCHC (RBC) [Mass/Vol] MCHC [Mass/volume] by Automated count 32.5-35.6 [facility] MCV Auto (RBC) [Entitic vol] Ordered By: Emory Anthony on 07-10-2024 MCV (RBC) [Entitic vol] MCV [Entitic volume] by Automated count 83.5-101 [facility] Monocytes Auto (Bld) [#/Vol] Ordered By: Emory Anthony on 07-10-2024 Monocytes (Bld) [#/Vol] Automated blood monocyte count 0.0-0.8 [facility] Monocytes/100 WBC Auto (Bld) Ordered By: Emory Anthony on 07-10-2024 Monocytes/100 WBC (Bld) Automated monocyte % . [facility] Neutrophils Auto (Bld) [#/Vo l]Ordered By: Emory Anthony on 07-10-2024 Neutrophils (Bld) [#/Vol] Neutrophils [#/volume] in Blood by Automated count 1.8-7.7 [facility] Neutrophils/100 WBC Auto (Bl d)Ordered By: Emory Anthony on 07-10-2024 Neutrophils/100 WBC (Bld) Automated neutrophil % . [facility] No Panel InformationOrdered By: Emory Anthony on 07-10-2024 Estimated GFR (CKD-EPI) > 60.0 mL/Min [facility] Creatinine Clearance (Chem 109.86 [facility] Nucleated erythrocytes [Pres ence] in Blood by Automated countOrdered By: Emory Anthony on 07-10-2024 Nucleated RBC Auto Ql (Bld) Nucleated erythrocytes [Presence] in Blood by Automated count 0-0.5 [facility] Platelet mean volume Auto (B ld) [Entitic vol]Ordered By: Emory Anthony on 07-10-2024 Platelet mean volume (Bld) [Entitic vol] Platelet mean volume [Entitic volume] in Blood by Automated count 6.6-10.1 [facility] Platelets Auto (Bld) [#/Vol] Ordered By: Emory Anthony on 07-10-2024 Platelets (Bld) [#/Vol] Platelets [#/volume] in Blood by Automated count 150-450 [facility] Potassium [Moles/volume] in Serum or PlasmaOrdered By: Emory Anthony on 07-10-2024 Potassium [Moles/Vol] Potassium [Moles/v olume] in Serum or Plasma 3.5-5.1 [facility] Protein [Mass/volume] in Ser um or PlasmaOrdered By: Danette Carbajal on 07-10-2024 Protein [Mass/Vol] Protein [Mass/volume ] in Serum or Plasma 6.4-8.9 [facility] Prothrombin Time INRon 07-10 INR Coag (PPP) [Relative time] 1.0 {INR} Normal [facility] Comment on above: Result Comment: INR Therapeutic Range A) Pre- and Peroperative OAT started two weeks before surgery. NOT HIP SURGERY: 1.5 - 2.5 HIP SURGERY: 2 - 3 B) Primary and secondary prevention of venous THROMBOSIS: 2 - 3 C) Active venous thrombosis, pulmonary embolism and prevention of recurrent venous thrombosis: 2 - 3 D) Prevention of arterial thromboembolism including patients with mechanical heart valves: 3 - 4.5 PERFORMED BY: [place] [address] PATHOLOGIST ROUGH RICE TENDER CLEOPATRA RAZO M.D. Performed By: #### B MP, CBC, PT, HEPATIC #### [facility] [address] [id number] [facility] PT Coag (PPP) [Time] 11.9 s Normal 9.0-12.9 [facility] Comment on above: Result Comment: A he matocrit value greater than 55% may lead to inaccurate results in coagulation testing. Patients having hematocrit values >55% require a special collection tube for coagulation studies. Please contact the laboratory at [phone] for redraw instructions. Performed By: #### B MP, CBC, PT, HEPATIC #### [facility] [address] [place] [address] [facility] Prothrombin time (PT)Ordered By: Emory Anthony on 07-10-2024 PT Coag (PPP) [Time] Prothrombin time (PT) 9.0- 12.9 [facility] Comment on above: A hematocrit value g reater than 55% may lead to inaccurate results in coagulation testing. Patients having hematocrit values >55% require a special collection tube for coagulation studies. Please contact the laboratory at [phone] for redraw instructions. RBC Auto (Bld) [#/Vol]Ordere d By: Emory Anthony on 07-10-2024 RBC (Bld) [#/Vol] Erythrocytes [#/volu me] in Blood by Automated count 3.90-5.60 [facility] Serum or plasma albumin/glob ulin mass ratioOrdered By: Danette Carbajal on 07-10-2024 Albumin/Globulin [Mass ratio] Serum or plasma albumin/globulin mass ratio [facility] Serum or plasma anion gap de terminationOrdered By: Emory Anthony on 07-10-2024 Anion gap [Moles/Vol] Serum or plasma an ion gap determination 6.0-15.0 [facility] Serum or plasma non-glucuron idated bilirubin measurement (mass/volume)Ordered By: Danette Carbajal on 07-10-2024 Bilirubin.indirect [Mass/Vol] Serum or plasma non-glucuronidated bilirubin measurement (mass/volume) [facility] Sodium [Moles/volume] in Ser um or PlasmaOrdered By: Emory Anthony on 07-10-2024 Sodium [Moles/Vol] Sodium [Moles/volume ] in Serum or Plasma 136-145 [facility] Urea nitrogen [Mass/volume] in Serum or PlasmaOrdered By: Emory Anthony on 07-10-2024 Urea nitrogen [Mass/Vol] Urea nitrogen [Mass/volume] in Serum or Plasma 7-25 [facility] WBC Auto (Bld) [#/Vol]Ordere d By: Emory Anthony on 07-10-2024 WBC (Bld) [#/Vol] Leukocytes [#/volume ] in Blood by Automated count 4.1-10.5 [facility] XR CERVICAL SPINE COMPLETE 4 -5 VIEWSon [...] signed and approved by the interpreting radiologist. Vishal Otero MD - 05/02/2024 TITLE OF EXAM: XR [...] signed and approved by the interpreting radiologist. [facility] [employer] Radiology Study observation (narrative) [facility] [employer] XR Cervical spine 4 or 5 Vie wsOrdered By: Vishal Love on 05-02-2024 [facility] [employer] Work Phone: XR LUMBAR SPINE (2-3 VIEWS)o [...] by: Lang Tirado MD 11/11/21 Final result [facility] [ 1. Straightening of the normal lumbar lordosis which may be related to positioning or spasm. 2. Vertebral body heights and intervertebral disc spaces maintained. [facility] EXAMINATION: THREE XRAY VIEWS OF THE LUMBAR [...] Visualized portions of the sacroiliac joints maintained. [facility] Lang Tirado MD - 11/11/2021 EXAMINATION: THREE XRAY VIEWS [...] body heights and intervertebral disc spaces maintained. [employer] Work Phone: Radiology Study observation (narrative) [employer] Work Phone: XR LUMBAR SPINE (2-3 VIEWS)O rdered By: Lang Tirado on 11-11-2021 [employer] Work Phone: CBC with Auto Differentialon 06-26-2021 Absolute Eos # 0.31 [facility] Absolute Immature Granulocyte <0.03 [employer] [facility] Absolute Lymph # 3.02 [employer] [facility] Absolute Hawkins # 0.57 [employer] [facility] lt Basophils (Bld) [#/Vol] 0.07 10*3/uL [employer] Basophils/100 WBC (Bld) 1 % 0 - 2 % [facility] Eosinophils/100 WBC (Bld) 4 % 1 - 4 % [facility] Hemat[facility] (Bld) [Volume fraction] 43.7 % 40.7 - 50.3 % [facility] Hemoglobin.gastrointes tinal spec 1 Ql (Stl) 14.9 g/dL 13.0 - 17.0 g/dL [facility] Immature granulocytes/100 WBC (Bld) 0 % 0 [facility] Interpretation and review of laboratory results Abnormal [facility] Lymphocytes/100 WBC (Bld) 44 % High 24 - 43 % [facility] MCH (RBC) [Entitic mass] 31.5 pg 25.2 - 33.5 pg [facility] MCHC (RBC) [Mass/Vol] 34.1 g/dL 28.4 - 34.8 g/dL [facility] MCV (RBC) [Entitic vol] 92.4 fL 82.6 - 102.9 fL [facility] Monocytes/100 WBC (Bld) 8 % 3 - 12 % [facility] NRBC Automated 0.0 0.0 per 100 WBC [facility] Platelet distribution width (Bld) [Ratio] 12.1 % 11.8 - 14.4 % [facility] Platelet mean volume (Bld) [Entitic vol] 9.8 fL 8.1 - 13.5 fL [facility] Platelets (Bld) [#/Vol] 354 10*3/uL [facility] RBC (Bld) [#/Vol] 4.73 10*6/uL 4.21 - 5.77 m/uL [facility] Segmented neutrophils/100 WBC (Bld) 43 % 36 - 65 % [facility] Segs Absolute 3.04 [facility] h WBC (Bld) [#/Vol] 7.0 10*3/uL [facility] CBC with Diffon 06-26-2021 Abs. Basophil 0.07 k/uL Normal 0.00-0.20 [facility] Comment on above: Performed By: #### C DP, CP #### [facility] [address] [place] [address] [place] [address] [employer] Rep[employer]r: To Dey MD Abs.Imm.Granulocyte <0.03 Normal 0.00-0.30 [facility] Comment on above: Performed By: #### C DP, CP #### [address] [place] [address] [employer]r: To Dey MD Abs.Neutrophil (Seg) 3.04 k/uL Normal 1.50-8.10 [facility] Comment on above: Performed By: #### C DP, CP #### [address] [place], [place] [address] [employer]r: To Dey MD Basophils/100 WBC (Bld) 1 % Normal 0-2 [facility] Comment on above: Performed By: #### C DP, CP #### [address] [place], [place] [address] [employer]r: To Dey MD Eosinophils (Bld) [#/Vol] 0.31 10*3/uL Normal 0.00-0.44 [facility] Comment on above: Performed By: #### C DP, CP #### [facility] [address] [place] [address] [place] [address] [employer]r: To Dey MD Eosinophils/100 WBC (Bld) 4 % Normal 1-4 [facility] Comment on above: Performed By: #### C DP, CP #### [facility] [address] [place], [place] [id number] [employer]r: To Dey MD Erythrocyte distribution width (RBC) [Ratio] 12.1 % Normal 11.8-14.4 [facility] Comment on above: Performed By: #### C DP, CP #### [facility] [address] [place], [place] [id number] [employer]r: To Dey MD Hematocrit (Bld) [Volume fraction] 43.7 % Normal 40.7-50.3 [facility] Comment on above: Performed By: #### C DP, CP #### [address] [place], [facility]83 [employer]r: To Dey MD Hemoglobin (Bld) [Mass/Vol] 14.9 g/dL Normal 13.0-17.0 [facility] Comment on above: Performed By: #### C DP, CP #### [address] [place], [place] [id number] [employer]r: To Dey MD Immature granulocytes/100 WBC (Bld) 0 % Normal 0 [facility] Comment on above: Performed By: #### C DP, CP #### [address] [place], [facility]83 [employer]r: To Dey MD Lymphocytes (Bld) [#/Vol] 3.02 10*3/uL Normal 1.10-3.70 [facility] Comment on above: Performed By: #### C DP, CP #### [facility] [address] [place], [place] [id number] [employer]r: To Dey MD Lymphocytes/100 WBC (Bld) 44 % High 24-43 [facility] Comment on above: Performed By: #### C DP, CP #### [facility] [address] [place], [facility] [employer]r: To Dey MD MCH (RBC) [Entitic mass] 31.5 pg Normal 25.2-33.5 [facility] Comment on above: Performed By: #### C DP, CP #### [facility] [address] [place], [place] [id number] [employer]: To Dey MD MCHC (RBC) [Mass/Vol] 34.1 g/dL Normal 28.4-34.8 [facility] Comment on above: Performed By: #### C DP, CP #### [address] [place], [place] [id number] [employer]: To Dey MD MCV (RBC) [Entitic vol] 92.4 fL Normal 82.6-102.9 [facility] Comment on above: Performed By: #### C DP, CP #### [address] [place], [place] [id number] [employer]r: To Dey MD Monocytes (Bld) [#/Vol] 0.57 10*3/uL Normal 0.10-1.20 [facility] Comment on above: Performed By: #### C DP, CP #### [address] [place], [place] [id number] [employer]r: To Dey MD Monocytes/100 WBC (Bld) 8 % Normal 3-12 [facility] Comment on above: Performed By: #### C DP, CP #### [facility] [address] [place] [address] [place] [address] [employer]r: To Dey MD Neutrophil (Seg) 43 % Normal 36-65 [facility] Comment on above: Performed By: #### C DP, CP #### [facility] [address] [place], [place] [id number] [employer]: To Dey MD NRBC Automated 0.0 per 100 WBC Normal 0.0 [facility] Comment on above: Performed By: #### C DP, CP #### [facility] [address] [place], [place] [phone] [employer]: To Dey MD Platelet mean volume (Bld) [Entitic vol] 9.8 fL Normal 8.1-13.5 [facility] Comment on above: Performed By: #### C DP, CP #### [facility] [address] [place], [facility]83 [employer]r: To Dey MD Platelets (Bld) [#/Vol] 354 10*3/uL Normal 138-453 [facility] Comment on above: Performed By: #### C DP, CP #### [address] [place], [facility]83 [employer]r: To Dey MD RBC (Bld) [#/Vol] 4.73 10*6/uL Normal 4.21-5.77 [facility] Comment on above: Performed By: #### C DP, CP #### [address] [place], [facility]83 [employer]r: To Dey MD WBC (Bld) [#/Vol] 7.0 10*3/uL Normal 3.5-11.3 [facility] Comment on above: Performed By: #### C DP, CP #### [address] [place], [facility]83 [employer]r: To Dey MD CT ABDOMEN PELVIS WO [...] was not enlarged. No ascites was noted. Peritoneum/Retroperitoneu m: No abdominal or pelvic lymphadenopathy were noted. [...] by: Canelo Savage 06/26/21 Final result Normal [facility] CT ABDOMEN PELVIS WO CONTRAS T Additional Contrast? Noneon 06-26-2021 A 1-2 mm minimally obstructing calculus was noted at the right UVJ causing very mild right pyelectasis and right ureterectasis. Mild uniform wall thickening of the urinary bladder was noted. The prostate was not enlarged. The wall thickening could be due to cystitis.. [facility] EXAMINATION: CT OF THE ABDOMEN AND [...] was not enlarged. No ascites was noted. Peritoneum/Retroperitoneu m: No abdominal or pelvic lymphadenopathy were noted. Bones/Soft Tissues: A small umbilical hernia was noted which contained uncomplicated adipose tissue measuring 2 centimetres. [facility] Canelo Edward - 06/26 EXAMINATION: CT OF THE ABDOMEN AND PELVIS [...] was not enlarged. No ascites was noted. Peritoneum/Retroperitoneu m: No abdominal or pelvic lymphadenopathy were noted. [...] wall thickening could be due to cystitis.. [facility] [employer] Work Phone: Radiology Study observation (narrative) [facility] [employer] Phone: CT ABDOMEN PELVIS WO CONTRAS T Additional Contrast? NoneOrdered By: Canelo Savage on 06-26-2021 [facility] Work Phone: Comp Metabolic Profon 2021 (cont.) Normal [facility] Comment on above: Result Comment: Aver age GFR for 30-39 years old: 107 mL/min/1.73sq m Chronic Kidney Disease: <60 mL/min/1.73sq m Kidney failure: <15 mL/min/1.73sq m eGFR calculated using average adult body mass. Additional eGFR calculator available at: http://www.[employer]/multiple_crcl_2011.htm Performed By: #### C DP, CP #### [facility] [address] [place] [address] [place] [address] [employer]r: To Dey MD Albumin [Mass/Vol] 4.2 g/dL Normal 3.5-5.2 [facility] Comment on above: Performed By: #### C DP, CP #### [facility] [address] [place] [address] [employer]r: To Dey MD Albumin/Glob Ratio 1.3 Normal 1.0-2.5 [facility] Comment on above: Performed By: #### C DP, CP #### [facility] [address] [place] [address] [employer]r: To Dey MD Alkaline Phos 83 U/L Normal 40-129 [facility] Comment on above: Performed By: #### C DP, CP #### [facility] [address] [place] [address] [employer]r: To Dey MD ALT [Catalytic activity/Vol] 23 U/L Normal 5-41 [facility] Comment on above: Performed By: #### C DP, CP #### [facility] [address] [place], [place] [phone] [employer]r: To Dey MD Anion gap [Moles/Vol] 12 mmol/L Normal 9-17 [facility] Comment on above: Performed By: #### C DP, CP #### [facility] [address] [place] [address] [employer]r: To Dey MD AST [Catalytic activity/Vol] 17 U/L Normal <40 [facility] Comment on above: Performed By: #### C DP, CP #### [facility] [address] [place] [address] [employer]r: To Dey MD Bilirubin [Mass/Vol] 0.39 mg/dL Normal 0.3-1.2 [facility] Comment on above: Performed By: #### C DP, CP #### [facility] [address] [place] [address] [employer]r: To Dey MD BUN/CRE Ratio 11 Normal 9-20 [facility] Comment on above: Performed By: #### C DP, CP #### [facility] [address] [place], [place] [phone] [employer]r: To Dey MD Calcium [Mass/Vol] 9.4 mg/dL Normal 8.6-10.4 [facility] Comment on above: Performed By: #### C DP, CP #### [facility] [address] [place] [address] [employer]r: To Dey MD Chloride [Moles/Vol] 102 mmol/L Normal 98-107 [facility] Comment on above: Performed By: #### C DP, CP #### [facility] [address] [place], [place] [phone] [employer]r: To Dey MD CO2 [Moles/Vol] 23 mmol/L Normal 20-31 [facility] Comment on above: Performed By: #### C DP, CP #### [facility] [address] [place], [place] [address]83 [employer]r: To Dey MD Creatinine [Mass/Vol] 1.50 mg/dL High 0.70-1.20 [facility] Comment on above: Performed By: #### C DP, CP #### [facility] [address] [place], [place] [id number] [employer]r: To Dey MD GFR, Amer >60 Normal >60 [facility] Comment on above: Performed By: #### C DP, CP #### [facility] [address] [place], [place] [phone] [employer]r: To Dey MD GFR,non Amer 55 mL/min Low >60 [facility] Comment on above: Performed By: #### C DP, CP #### [facility] [address] [place] [address] [place] [place], [place] [phone] [employer]r: To Dey MD Glucose [Mass/Vol] 94 mg/dL Normal 70-99 [facility] Comment on above: Performed By: #### C DP, CP #### [facility] [address] [place], [place] [phone] [employer]r: To Dey MD Potassium [Moles/Vol] 3.5 mmol/L Low 3.7-5.3 [facility] Comment on above: Performed By: #### C DP, CP #### [facility] [address] [place], [place] 140[address]83 [employer]r: To Dey MD Protein [Mass/Vol] 7.5 g/dL Normal 6.4-8.3 [facility] Comment on above: Performed By: #### C DP, CP #### [facility] [address] [place] [address] [employer]r: To Dey MD Sodium [Moles/Vol] 137 mmol/L Normal 135-144 [facility] Comment on above: Performed By: #### C DP, CP #### [facility] [address] [place] [address] [employer]r: To Dey MD Staging: Normal [facility] Comment on above: Result Comment: Stag e 1: Some kidney damage normal GFR Stage 2: Mild kidney damage GFR 60-89 Stage 3: Moderate kidney damage GFR 30-59 Stage 4: Severe kidney damage GFR 15-29 Stage 5: Severe kidney damage GFR <15 ESRD - chronic treatment by dialysis or transplant Performed By: #### C DP, CP #### [facility] [address] [place] [address] [employer]r: To Dey MD Urea nitrogen [Mass/Vol] 17 mg/dL Normal 6-20 [facility] Comment on above: Performed By: #### C DP, CP #### [address] [place] [address] [employer] Rep[employer]r: To Dey MD Comprehensive Metabolic Pane [facility] 06-26-2021 Albumin [Mass/Vol] 4.2 g/dL 3.5 - 5.2 g/dL [facility] Albumin/Globulin [Mass ratio] 1.3 {ratio} [facility] ALP (Bld) [Catalytic activity/Vol] 83 U/L 40 - 129 U/L [facility] ALT [Catalytic activity/Vol] 23 U/L 5 - 41 U/L [facility] Anion gap [Moles/Vol] 12 mmol/L 9 - 17 mmol/L [facility] AST [Catalytic activity/Vol] 17 U/L <40 [facility] Bilirubin [Mass/Vol] 0.39 mg/dL 0.3 - 1 .2 mg/dL [facility] Calcium [Mass/Vol] 9.4 mg/dL 8.6 - 10. 4 mg/dL [facility] Chloride [Moles/Vol] 102 mmol/L 98 - 10 7 mmol/L [facility] CO2 [Moles/Vol] 23 mmol/L 20 - 31 mmol/L [facility] Creatinine [Mass/Vol] 1.5 mg/dL High 0.70 - 1.20 mg/dL [facility] Free PSA/Total PSA [Mass fraction] 7.5 g/dL 6.4 - 8.3 g/dL [facility] GFR >60 >60 mL/min [facility] GFR Non- 55 mL/min Low >60 [facility] Glucose [Mass/Vol] 94 mg/dL 70 - 99 mg/dL [facility] Interpretation and review of laboratory results Abnormal [facility] Potassium [Moles/Vol] 3.5 mmol/L Low 3.7 - 5.3 mmol/L [facility] Sodium [Moles/Vol] 137 mmol/L 135 - 144 mmol/L [facility] Urea nitrogen (BldV) [Mass/Vol] 17 mg/dL 6 - 20 mg/dL [facility] Urea nitrogen/Creatinine (Bld) [Mass ratio] [address] [facility] - Chemistry and C hemistry - challengeon 06-26-2021 GFR/1.73 sq M.predicted MDRD (S/P/Bld) [Vol rate/Area] [facility] Comment on above: Average GFR for 30-3 9 years old: 107 mL/min/1.73sq m Chronic Kidney Disease: <60 mL/min/1.73sq m Kidney failure: <15 mL/min/1.73sq m eGFR calculated using average adult body mass. Additional eGFR calculator available at: http://www.[employer]/multiple_crcl_2012.htm Stage 1: Some kidney damage normal GFR Stage 2: Mild kidney damage GFR 60-89 Stage 3: Moderate kidney damage GFR 30-59 Stage 4: Severe kidney damage GFR 15-29 Stage 5: Severe kidney damage GFR <15 ESRD - chronic treatment by dialysis or transplant Urinalysis w/ Microon 2021 ----- Normal [facility] Comment on above: Performed By: #### U [facility] #### [facility] [address] [place], [place] [id number] [employer] Goods Repairer: To Dey MD Bacteria TRACE Abnormal NONE [facility] Comment on above: Performed By: #### U AMIC #### [facility] [address] [place] [address] [place] [place], [place] [phone] [employer] Rep[employer]r: To Dey MD Bilirubin, SemiQt,Ur Negative Normal NEG [facility] Comment on above: Performed By: #### U AMIC #### [facility] [address] [place], [place] [id number] [employer] Repairer: To Dey MD Blood, Urine 1+ Abnormal NEG [facility] Comment on above: Performed By: #### U AMIC #### [facility] [address] [place] [address] [place] [place], [place] [phone] [employer] Rep[employer]r: To Dey MD Clarity (U) Clear Normal CLEAR [facility] Comment on above: Performed By: #### U AMIC #### [facility] [address] [place] [address] [address] [place], [place] [phone] [employer] Rep[employer]r: To Dey MD Color (U) Yellow Normal YEL [facility] Comment on above: Performed By: #### U AMIC #### [facility] [address] [place] [address] [place] [place], [place] [phone] [employer] Rep[employer]r: To Dey MD Epithelial cells LM Ql (Urine sed) 0 TO 2 Normal 0-5 [facility] Comment on above: Performed By: #### U AMIC #### [facility] [address] [place], [place] [id number] [employer] Repairer: To Dey MD Glucose Ql (U) Negative Normal NEG [facility] Comment on above: Performed By: #### U AMIC #### [facility] [address] [place] [address] [employer] Repairer: To Dey MD Ketones Ql (U) Negative Normal NEG [facility] Comment on above: Performed By: #### U AMIC #### [facility] [address] [place] [address] [place], [place] [phone] [employer] Repairer: To Dey MD Leukocyte esterase Test strip Ql (U) Negative Normal NEG [facility] Comment on above: Performed By: #### U AMIC #### [facility] [address] [place] [address] [place] [place], [place] [phone] [employer] Repairer: To Dey MD Nitrite,Ur Negative Normal NEG [facility] Comment on above: Performed By: #### U AMIC #### [address] [place] [address] [employer] Repairer: To Dey MD PH,Ur 7.0 Normal 5.0-9.0 [facility] Comment on above: Performed By: #### U AMIC #### [address] [place], [place] [phone] [employer] Repairer: To Dey MD Protein Ql (U) Negative Normal NEG [facility] Comment on above: Performed By: #### U AMIC #### [address] [place], [place] [phone] [employer] Repairer: To Dey MD Spec. Hume,Ur 1.015 Normal 1.010-1.02 0 [facility] Comment on above: Performed By: #### U AMIC #### [facility] [address] [place] [address] [place], [place] [phone] [employer] Repairer: To Dey MD Urine RBC's 2 TO 5 Normal 0-2 [facility] Comment on above: Performed By: #### U AMIC #### [address] [place] [address] [employer] Repairer: To Dey MD Urine WBC's 2 TO 5 Normal 0-5 [facility] Comment on above: Performed By: #### U AMIC #### [facility] [address] [place] [address] [employer] Rep[employer]r: To Dey MD Urobilinogen,Ur Normal Normal NORM [facility] Comment on above: Performed By: #### U AMIC #### [facility] [address] [place] [address] [employer] Repairer: To Dey MD Urinalysis with Microscopico n 06-26-2021 - [facility] Bacteria, UA TRACE Abnormal None [facility] Bilirubin U[facility], [facility]A Yellow Yellow [facility] Epithelial Cells UA 0 TO 2 [facility] Glucose, Ur Negative NEGATIVE [facility] Interpretation and review of laboratory results Abnormal [facility] Ketones Ql (U) Negative NEGATIVE [facility] Leukocyte esterase Test strip Ql (U) Negative NEGATIVE [facility] Nitrite, Urine Negative NEGATIVE [facility] pH, UA 7.0 [facility] Protein, UA Negative NEGATIVE [facility] RBC, UA 2 TO 5 [facility] Specific Hume, UA 1.015 [facility] Turbidity UA Clear Clear [facility] Urine Hgb 1+ Abnormal NEGATIVE [facility] Urobilinogen, Urine Normal Normal [facility] WBC, UA 2 TO [address] [facility] Basic Metab w/rfx MGon 06-18 Potassium [Moles/Vol] 3.3 mmol/L Low 3.7-5.3 [facility] Comment on above: Performed By: #### Luis Chen BMPX #### [facility] [address] [place] [address] [employer] Repairer: To Dey MD (cont.) Normal [facility] Comment on above: Result Comment: Aver age GFR for 30-39 years old: 107 mL/min/1.73sq m Chronic Kidney Disease: <60 mL/min/1.73sq m Kidney failure: <15 mL/min/1.73sq m eGFR calculated using average adult body mass. Additional eGFR calculator available at: http://www.[employer]/multiple_crcl_2011.htm Performed By: #### Luis Chen BMPX #### [facility] [address] [place], [place] [phone] [employer] Repairer: To Dey MD Anion gap [Moles/Vol] 11 mmol/L Normal 9-17 [facility] Comment on above: Performed By: #### M G, BMPX #### [facility] [address] [place], [place] 3904383 [employer] Rep[employer]r: To Dey MD BUN/CRE Ratio 16 Normal 9-20 [facility] Comment on above: Performed By: #### M G, BMPX #### [facility] [address] [place], [place] 8090583 [employer] Repairer: To Dey MD Calcium [Mass/Vol] 9.4 mg/dL Normal 8.6-10.4 [facility] Comment on above: Performed By: #### M G, BMPX #### [facility] [address] [place], [place] 8138083 [employer]r: To Dey MD Chloride [Moles/Vol] 108 mmol/L High 98-107 [facility] Comment on above: Performed By: #### M G, BMPX #### [facility] [address] [place], [place] [phone] [employer] Repairer: To Dey MD CO2 [Moles/Vol] 20 mmol/L Normal 20-31 [facility] Comment on above: Performed By: #### M G, BMPX #### [facility] [address] [place], [place] [phone] [employer] Repairer: To Dey MD Creatinine [Mass/Vol] 1.11 mg/dL Normal 0.70-1.20 [facility] Comment on above: Performed By: #### M G, BMPX #### [facility] [address] [place], [place] 8360183 [employer] Repairer: To Dey MD GFR, Amer >60 Normal >60 [facility] Comment on above: Performed By: #### M April, BMPX #### [facility] [address] [place], [place] 0397383 [employer] Repairer: To Dey MD GFR,non Amer >60 Normal >60 [facility] Comment on above: Performed By: #### M April, BMPX #### [facility] [address] [place], [place] [phone] [employer] Repairer: To Dey MD Glucose [Mass/Vol] 109 mg/dL High 70-99 [facility] Comment on above: Performed By: #### Luis Chen, BMPX #### [address] [place], [place] 4827783 [employer] Repairer: To Dey MD Sodium [Moles/Vol] 139 mmol/L Normal 135-144 [facility] Comment on above: Performed By: #### Luis Chen, BMPX #### [facility] [address] [place] [address] [place] [place], [place] [phone] [employer] Repairer: To Dey MD Staging: Normal [facility] Comment on above: Result Comment: Stag e 1: Some kidney damage normal GFR Stage 2: Mild kidney damage GFR 60-89 Stage 3: Moderate kidney damage GFR 30-59 Stage 4: Severe kidney damage GFR 15-29 Stage 5: Severe kidney damage GFR <15 ESRD - chronic treatment by dialysis or transplant Performed By: #### Luis Chen, BMPX #### [facility] [address] [place], [place] 6851083 [employer] Repairer: To Dey MD Urea nitrogen [Mass/Vol] 18 mg/dL Normal 6-20 [facility] Comment on above: Performed By: #### M April, BMPX #### [facility] [address] [place], [place] [phone] [employer] Repairer: To Dey MD Basic Metabolic Panel w/ Ref jesusita to MGon 06-18-2021 Anion gap [Moles/Vol] 11 mmol/L 9 - 17 mmol/L [facility] Calcium [Mass/Vol] 9.4 mg/dL 8.6 - 10. 4 mg/dL [facility] Chloride [Moles/Vol] 108 mmol/L High 98 - 10 7 mmol/L [facility] CO2 [Moles/Vol] 20 mmol/L 20 - 31 mmol/L [facility] Creatinine [Mass/Vol] 1.11 mg/dL 0.70 - 1.20 mg/dL [facility] GFR >60 >60 mL/min [facility] GFR Non- >60 >60 mL/min [facility] Glucose [Mass/Vol] 109 mg/dL High 70 - 99 mg/dL [facility] Interpretation and review of laboratory results Abnormal [facility] Potassium [Moles/Vol] 3.3 mmol/L Low 3.7 - 5.3 mmol/L [facility] Sodium [Moles/Vol] 139 mmol/L 135 - 144 mmol/L [facility] Urea nitrogen (BldV) [Mass/Vol] 18 mg/dL 6 - 20 mg/dL [facility] Urea nitrogen/Creatinine (Bld) [Mass ratio] [address] [facility] - Chemistry and C hemistry - challengeon 06-18-2021 GFR/1.73 sq M.predicted MDRD (S/P/Bld) [Vol rate/Area] [facility] Comment on above: Average GFR for 30-3 9 years old: 107 mL/min/1.73sq m Chronic Kidney Disease: <60 mL/min/1.73sq m Kidney failure: <15 mL/min/1.73sq m eGFR calculated using average adult body mass. Additional eGFR calculator available at: http://www.[employer]/multiple_crcl_2012.htm Stage 1: Some kidney damage normal GFR Stage 2: Mild kidney damage GFR 60-89 Stage 3: Moderate kidney damage GFR 30-59 Stage 4: Severe kidney damage GFR 15-29 Stage 5: Severe kidney damage GFR <15 ESRD - chronic treatment by dialysis or transplant Magnesiumon 06-18-2021 Magnesium [Mass/Vol] 2.2 mg/dL Normal 1.6-2.6 [facility] Comment on above: Performed By: #### M PREET Chen #### [facility] [address] [place], [place] [phone] [employer] Repairer: To Dey MD Magnesium [Mass/Vol] 2.2 mg/dL 1.6 - 2 .6 mg/dL [facility] Microscopic Urinalysison - [facility] Epithelial Cells UA 0 TO 2 [facility] Interpretation and review of laboratory results Abnormal [facility] Mucus, UA 1+ Abnormal None [facility] RBC, UA 20 TO 50 [facility] WBC, UA 0 TO [address] [facility] UA w/Reflex Cultureon 2021 Bilirubin, SemiQt,Ur Negative Normal NEG [facility] Comment on above: Performed By: #### U AX, UMICAO #### [facility] [address] [place] [address] [employer] Repairer: To Dey MD Blood, Urine 3+ Abnormal NEG [facility] Comment on above: Performed By: #### U AX, UMICAO #### [facility] [address] [place], [place] 8352983 [employer] Repairer: To Dey MD Clarity (U) SLIGHTLY CLOUDY Abnormal CLEAR [facility] Comment on above: Performed By: #### U AX, UMICAO #### [facility] [address] [place], [place] 0396683 [employer] Repairer: To Dey MD Color (U) Yellow Normal YEL [facility] Comment on above: Performed By: #### U AX, UMICAO #### [facility] [address] [place] [address] [employer] Repairer: To Dey MD Glucose Ql (U) Negative Normal NEG [facility] Comment on above: Performed By: #### U AX, UMICAO #### [facility] [address] [place] [address] [employer] Repairer: oT Dey MD Ketones Ql (U) Negative Normal NEG [facility] Comment on above: Performed By: #### U AX, UMICAO #### [facility] [address] [place] [address] [place] [address] [employer] Repairer: To Dey MD Leukocyte esterase Test strip Ql (U) Negative Normal NEG [facility] Comment on above: Performed By: #### U AX, UMICAO #### [facility] [address] [place] [address] [place] [place], [place] [address] [employer] Repairer: To Dey MD Nitrite,Ur Negative Normal NEG [facility] Comment on above: Performed By: #### U AX, UMICAO #### [address] [place], [place] [address] [employer]s Repairer: To Dey MD PH,Ur 6.0 Normal 5.0-9.0 [facility] Comment on above: Performed By: #### U AX, UMICAO #### [facility] [address] [place] [address] Dr. [place], [facility] [employer] Repairer: To Dey MD Protein Ql (U) Negative Normal NEG [facility] Comment on above: Performed By: #### U AX, UMICAO #### [facility] [address] [place] [address] [place] [address] [employer] Repairer: To Dey MD Spec. Hume,Ur 1.015 Normal 1.010-1.02 0 [facility] Comment on above: Performed By: #### U AX, UMICAO #### [facility] [address] [place] [address] [place] [address] [employer]s Repairer: To Dey MD Urobilinogen,Ur Normal Normal NORM [facility] Comment on above: Performed By: #### U AX, UMICAO #### [facility] [address] [place], [place] 8137483 [employer] Repairer: To Dey MD Urinalysis with Reflex to Cu ltureon 06-18-2021 Bilirubin Urine Negative [facility]IVE [facility], UA Yellow Yellow [facility] Glucose, Ur Negative NEGATIVE [facility] Interpretation and review of laboratory results Abnormal [facility] Ketones Ql (U) Negative NEGATIVE [facility] Leukocyte esterase Test strip Ql (U) Negative NEGATIVE [facility] Nitrite, Urine Negative NEGATIVE [facility] pH, UA 6.0 [facility] Protein, UA Negative NEGATIVE [facility] Specific Hume, UA 1.015 [facility] Turbidity UA SLIGHTLY CLOUDY Abnormal Clear [facility] ealt Urine Hgb 3+ Abnormal NEGATIVE [facility] Urobilinogen, Urine Normal Normal [facility] Urinalysis,Microon 2 ----- Normal [facility] Comment on above: Performed By: #### U AX, UMICAO #### [facility] [address] [place] [address] [employer]s Repairer: To Dey MD Epithelial cells LM Ql (Urine sed) 0 TO [address] Comment on above: Performed By: #### U AX, UMICAO #### [facility] [address] [place] [address] [employer]s Repairer: To Dey MD Mucus Strands 1+ Abnormal NONE [facility] Comment on above: Performed By: #### U AX, UMICAO #### [facility] [address] [place] [id number] [employer]s Repairer: To Dey MD Urine RBC's 20 TO 50 Normal 0-2 [facility] Comment on above: Performed By: #### U AX, UMICAO #### [facility] [address] [place] [address] [employer]s Repairer: To Dey MD Urine WBC's 0 TO 2 Normal 0-5 [facility] Comment on above: Performed By: #### U AX, UMICAO #### [facility] [address] [place] [address] [employer]s Repairer: To Dey MD MRI FOOT LEFT WO [...] Trey Leiva MD 06/12/21 Final result Normal [facility] No etiology identifi ed to explain left foot pain. [facility] EXAMINATION: MRI OF THE LEFT FOOT WITHOUT [...] visualized flexor and extensor tendons are intact. [facility] Trey Leiva MD [...] etiology identified to explain left foot pain. [facility] [employer]: MRI FOOT LEFT WO CONTRASTOrd ered By: Trey Leiva on 06-12-2021 [employer] [employer]: MRI FOOT LEFT WO CONTRASTon 06-10-2021 Radiology Study observation (narrative) [employer]: Coding Summary.on 01-18-2019 Coding Summary. CODING DATE: 019 FINAL [facility] STATUS: Home (Routine DC) PAYOR: Government [...] Date Saved: 01/18/2019 11:33 am Normal [facility] Auto Diffon 01-17-2019 Basophils/100 WBC (Bld) 0.8 % Normal 0.0-2.0 [facility] Comment on above: Order Comment: Order Added by Discern Expert. Performed By: #### 2 426375, 7421270, [id number], 5447377, [id number], [id number] #### [facility] [address] [place] [address] Basophils/Leukocytes Auto (Bld) [Pure # fraction] 0.1 E9/L Normal 0.0-0.2 [facility] Comment on above: Order Comment: Order Added by Discern Expert. Performed By: #### 2 960777, 4392395, 79758131, 4531417, 85536075, [id number] #### [facility] [address] [place] [address] Eosinophils/100 WBC (Bld) 4.0 % Normal 0.0-8.0 [facility] Comment on above: Order Comment: Order Added by Discern Expert. Performed By: #### 2 571127, 3565736, 73739573, 3192357, 03045387, 78244818 #### [facility] [address] [place] [address] Eosinophils/Leukocytes Auto (Bld) [Pure # fraction] 0.3 E9/L Normal 0.0-0.5 [facility] Comment on above: Order Comment: Order Added by Discern Expert. Performed By: #### 2 233080, 2609187, 98516803, 7587017, 04445267, 17605944 #### [facility] [address] [place] [address] Lymphocytes/100 WBC (Bld) 35.1 % Normal 14.0-50.0 [facility] Comment on above: Order Comment: Order Added by Discern Expert. Performed By: #### 2 542595, 3739766, 51629119, 9538747, 53217926, [id number] #### [facility] [address] [place] [address] Lymphocytes/Leukocytes Auto (Bld) [Pure # fraction] 3.0 E9/L Normal 1.0-4.0 [facility] Comment on above: Order Comment: Order Added by Discern Expert. Performed By: #### 2 436934, 8203323, 19851182, 7943213, 84269067, 24690832 #### [facility] [address] [place] [address] Monocytes/100 WBC (Bld) 7.4 % Normal 4.0-14.0 [facility] Comment on above: Order Comment: Order Added by Discern Expert. Performed By: #### 2 117705, 8934059, 14277866, 0868444, 44209277, 02552502 #### [facility] [address] [place] [address] Monocytes/Leukocytes Auto (Bld) [Pure # fraction] 0.6 E9/L Normal 0.2-1.0 [facility] Comment on above: Order Comment: Order Added by Discern Expert. Performed By: #### 2 148317, 4485002, 94872223, 5717082, 15421826, 30244568 #### [facility] [address] [place] [address] Neutrophils/100 WBC (Bld) 52.7 % Normal 36.0-75.0 [facility] Comment on above: Order Comment: Order Added by Discern Expert. Performed By: #### 2 286836, 9943265, 51870019, 7342620, 99437519, 92450806 #### [facility] [address] [place] [address] Neutrophils/Leukocytes Auto (Bld) [Pure # fraction] 4.5 E9/L Normal 2.0-7.5 [facility] Comment on above: Order Comment: Order Added by Discern Expert. Performed By: #### 2 156088, 4791072, 12886630, 3486768, 17279014, 14311217 #### [facility] [address] [place] [address] BMPon 01-17-2019 Creatinine [Mass/Vol] 1.0 mg/dL Normal 0.5-1.3 [facility] Comment on above: Performed By: #### 2 599379, 8663750, 92138608, 1432000, 99517166, 59128640 #### [facility] [address] [place] [address] Urea nitrogen [Mass/Vol] 12 mg/dL Normal 5-21 [facility] Comment on above: Performed By: #### 2 370859, 3554292, 06878873, 9401289, 78509658, 30295664 #### [facility] [address] [place] [address] Urea nitrogen/Creatinine [Mass ratio] 12 No Units Normal 10-20 [facility] Comment on above: Performed By: #### 2 844391, 5471404, 42558214, 7864571, 53999932, 45918652 #### [facility] [address] [place] [address] Anion gap [Moles/Vol] 15 mmol/L Normal 6-16 [facility] Comment on above: Performed By: #### 2 499261, 9323443, 64297008, 4567597, 49838767, 14886810 #### [facility] [address] [place] [address] Calcium [Mass/Vol] 9.6 mg/dL Normal 8.9-11.1 [facility] Comment on above: Performed By: #### 2 807020, 4601031, 14501335, 5469567, 88236653, 04498872 #### [facility] [address] [place] [address] Chloride [Moles/Vol] 105 mmol/L Normal 101-111 [facility] Comment on above: Performed By: #### 2 608756, 8966285, 99620943, 1476006, 37986593, 36077983 #### [facility] [address] [place] [address] CO2 [Moles/Vol] 25 mmol/L Normal 21-31 [facility] Comment on above: Performed By: #### 2 594854, 2388994, 30886149, 5661220, 22228880, 60779204 #### [facility] [address] [place] [address] Glucose [Mass/Vol] 129 mg/dL Normal 55-199 [facility] Comment on above: Result Comment: If t his glucose result represents a fasting glucose, interpretation should refer to the following reference range: 55-99 mg/dL Performed By: #### 2 418535, 4153437, 94375843, 8277662, 19006953, 88992622 #### [facility] [address] [place] [address] Potassium [Moles/Vol] 3.3 mmol/L Low 3.5-5.3 [facility] Comment on above: Performed By: #### 2 675862, 4957372, 16226946, 3782377, 55971505, 22169872 #### [facility] [address] [place] [address] Sodium [Moles/Vol] 142 mmol/L Normal 135-145 [facility] Comment on above: Performed By: #### 2 907739, 6801319, 27670707, 8853489, 24775443, 30691514 #### [facility] [address] [place] [address] CBC w/ Auto Diffon 9 Erythrocyte distribution width (RBC) [Ratio] 13.6 % Normal 10.9-14.2 [facility] Comment on above: Performed By: #### 2 195624, 0712238, 09503290, 4463605, 70775676, 75805932 #### [facility] [address] [place] [address] Hematocrit (Bld) [Volume fraction] 44.5 % Normal 37.7-49.0 [facility] Comment on above: Performed By: #### 2 859846, 8304617, 17629470, 7428168, 53094036, 68285751 #### [facility] [address] [place] [address] Hemoglobin (Bld) [Mass/Vol] 15.6 g/dL Normal 13.5-17.5 [facility] Comment on above: Performed By: #### 2 901942, 5315790, 17237296, 0681204, 87078812, 12938991 #### [facility] [address] [address] [place], [place] [id number] MCH (RBC) [Entitic mass] 32.3 pg Normal 27.0-34.0 [facility] Comment on above: Performed By: #### 2 [id number], [id number], [id number], 7208650, [id number], [id number] #### [facility] [address] [place] [address] 14576 MCHC (RBC) [Mass/Vol] 35.2 g/dL Normal 33.3-35.7 [facility] Comment on above: Performed By: #### 2 [id number], 2043738, 87771436, 8678467, [id number], [id number] #### [facility] [address] [place] [address] 71892 MCV (RBC) [Entitic vol] 91.8 fL Normal 80.0-100.0 [facility] Comment on above: Performed By: #### 2 116394, 0807291, 26279027, 4457719, 37888255, [id number] #### [facility] [address] [place] [address] 25445 Platelet mean volume (Bld) [Entitic vol] 8.3 fL Normal 6.4-10.8 [facility] Comment on above: Performed By: #### 2 561335, 5421918, 75532806, 4069080, 79044339, [id number] #### [facility] [address] [place] [address] 09244 Platelets (Bld) [#/Vol] 287.0 E9/L Normal 150.0-500. 0 [facility] Comment on above: Performed By: #### 2 207097, 6992061, 20030380, 1676329, 94723948, [id number] #### [facility] [address] [place] [address] 13770 RBC (Bld) [#/Vol] 4.8 E12/L Normal 4.3-5.9 [facility] Comment on above: Performed By: #### 2 427987, 6369884, 63280844, 1498512, 14089662, [id number] #### [facility] [address] [place] [address] 71057 WBC corrected for nucl RBC Auto (Bld) [#/Vol] 8.5 E9/L Normal 4.0-11.0 [facility] Comment on above: Performed By: #### 2 819861, 5980762, 49135034, 9478431, 95442277, [id number] #### [facility] [address] [place] [address] ED Clinical Summaryon 2018 ED Clinical Summary (Inserted Image. Marium ble to display) [address] [address] ED Clinical Summary Person Information Name: ABDIEL MANUEL [place] Age: 28 Years : 1990 12:00 AM Sex: Male Language: Central African PCP: RIK NEWTON DO Marital Status: Phone: [phone] Visit Id: Visit Reason: Nausea; Chest pain; [...] 01/17/2019 6:37 AM 01/17/2019 6:37 AM ADDRESS: [facility] [id number] PHYS DOC NOTES: MEDICAL INFORMATION: Prescriptions Given: Prescription Display metoclopramide (Reglan 10 mg Tab) 10 mg = 1 tab(s), Oral, QIDACHS, # 28 tab(s), Refills(s) 0, Pharmacy: [facility]/pharmacy #[id number] omeprazole (omeprazole 40 mg Cap-DR) 40 mg = 1 cap(s), Oral, Daily, # 14 cap(s), Refills(s) 0, Pharmacy: [facility]/pharmacy #[id number] Home Meds Display cyclobenzaprine (cyclobenzaprine 10 [...] (Nonspecific) Follow up: With: Address: When: RIK NEWTON [address] [place] [address] Business (1) Within 2 to 3 days DIAGNOSIS: 1:Chest pain Normal [facility] ED Note-Physicianon 01-18-20 ED Note-Physician Basic [...] have been reviewed and are negative or noncontributory.Unless otherwise stated in this report the patient's [...] QIDACHS, # 28 tab(s), Refills(s) 0, Pharmacy: [facility]/pharmacy #[id number] omeprazole, 40 mg = 1 cap(s), Oral, Daily, # 14 cap(s), Refills(s) 0, Pharmacy: [facility]/pharmacy #[id number] Automated Diff Basic Metabolic Panel CBC [...] RIK NEWTON Within 2 to 3 days [place] [address] [facility] (1) Additional Instructions: Patient Education Chest [...] Lymph Auto: 35.1 % (01/17/19 02:35:00 EDT) Hawkins Auto: 7.4 % (01/17/19 02:35:00 EDT) Eos Auto: 4 % (01/17/19 02:35:00 EDT) Basophil Auto: 0.8 % (01/17/19 02:35:00 EDT) Neutro Absolute: 4.5 E9/L (01/17/19 02:35:00 EDT) Lymph Absolute: 3 E9/L (01/17/19 02:35:00 EDT) Hawkins Absolute: 0.6 E9/L (01/17/19 02:35:00 EDT) Eos [...] of 95. No acute changes. Normal [facility] Comment on above: Result Comment: Elec [...] Document Reviewed: 11/08/2008 ExitCare? Patient Information ?2015 [employer]. This information is not intended to replace advice given to you by your health care provider. Make sure you discuss any questions you have with your health care provider. Normal [facility] ED Patient Summaryon 019 ED Patient Summary (Inserted Image. Marium ble to display) [address] [address] Patient Discharge Instructions Person Information Name: ABDIEL MANUEL Age: 28 Years Arrival Date: 01/17/2019 2:02 AM Discharge Diagnosis: 1:Chest pain Primary Care Physician: RIK NEWTON DO Provider Information Primary Provider: Alan Lan MD Advanced Pocket Assembler:None The exam and treatment you received in the Emergency Department were for an urgent problem and are not intended as complete care. It is important that you follow up with a doctor, nurse practitioner, or physician?s embalmer assistant for ongoing care. If your symptoms become worse or you do not improve as expected and you are unable to reach your usual health care provider, you should return to the Emergency Department. We are available 24 hours a day. ABDIEL MANUEL has been given the following list of patient education materials, prescriptions and follow-up instructions: Follow-up Instructions: With: Address: When: RIK NEWTON [address] [place] [address] Business (1) Within 2 to 3 days In the event that this physician does not participate in your insurance network, please consult with your insurance company to find a nearby participating provider. Patient Education Materials: Chest Pain (Nonspecific) A MESSAGE TO ALL PATIENTS REGARDING OPIOIDS PRESCRIPTION OPIOIDS: WHAT YOU NEED TO KNOW Prescription opioids can be used to help relieve mxenmvih-ak-djnbxf pain and are often prescribed following a [...] guidance from the Food and Drug Administration (www.fda.gov/Drugs/Resour cesForYou). ? Visit www.cdc.gov/drugoverdose to learn about the risks of opioids abuse and overdose. ? If you believe you may be struggling with addiction, tell your health post acute care registered nurse and ask for guidance or call SAMHSA?S National Helpline at 7-325-368-WXVV. v Source: US Department of Health and Human Services/Center for Disease Control & Prevention [facility] Medications Given: Medication Dose Route No medications found. Medication Information: New Medications [facility]/pharmacy #[id number], [address] [place], [place] [id number], [phone] metoclopramide (Reglan 10 mg Tab) 1 Tabs [...] Comment: Pharmacy Information: Thank you for choosing [facility] Patient Education Materials: Chest Pain (Nonspecific) It [...] Document Reviewed: 11/08/2008 ExitCare? Patient Information ?2014 [employer]. This information is not intended to replace advice given to you by your health care provider. Make sure you discuss any questions you have with your health care provider. KALEB Dunham JORDAN J , have received the following patient education materials/instructions and have verbalized understanding: Patient Education Materials: Chest Pain (Nonspecific) Follow-up Instructions: With: Address: When: RIK NEWTON [address] [place] [address] Business (1) Within 2 to 3 days Prescriptions: [metoclopramide (Reglan 10 mg Tab)] [omeprazole (omeprazole 40 mg Cap-DR)] Patient Signature ____ Date Clinician/Nurse Signature Date 01/17/19 06:37:27 [facility] PT & PTTon 01-17-2019 aPTT Coag (PPP) [Time] 28.0 second(s) Normal 25.1-36.5 [facility] Comment on above: Result Comment: Hepa rin therapeutic range (represented by Anti-Factor Xa activity of 0.2 - 0.4 U/mL) corresponds to PTT of 56.6 - 109.0 sec. Performed By: #### 2 [id number], 6763017, 63981655, 0008132, [id number], [id number] #### [facility] [address] [place] [address] INR Coag (PPP) [Relative time] 0.9 {INR} [facility] Comment on above: Result Comment: INR results are specifically intended to assess patients stabilized on long-term Anticoagulation therapy suggested INR?s ?Less Intensive Anticoagulation? 2.0 ? 3.0 Conventional Range 3.0 ? 4.5 Performed By: #### 2 346534, 1315286, 73708000, 3735822, 49896655, [id number] #### [facility] [address] [place] [address] PT Coag (PPP) [Time] 10.6 second(s) Normal 10.2-12.9 [facility] Comment on above: Performed By: #### 2 819646, 0053262, 24653905, 9296345, 74126086, [id number] #### [facility] [address] [place] [address] Troponin 0 Hr.on 01-17-2019 Troponin I.cardiac [Mass/Vol] ng/mL Normal <=0.03 [facility] Comment on above: Result Comment: New Troponin Assay 08/31/13 [place] Cutoff value > or = 0.03 ng/mL in conjunction with clinical conditions of myocardial infarction. (www.escardio.org/guidelines) Performed By: #### 2 025870, 9301039, 01847988, 0157888, 71820648, [id number] #### [facility] [address] [place] [address] Troponin 3 Hr.on 01-17-2019 Troponin I.cardiac [Mass/Vol] ng/mL Normal <=0.03 [facility] Comment on above: Result Comment: New Troponin Assay 08/31/13 [place] Cutoff value > or = 0.03 ng/mL in conjunction with clinical conditions of myocardial infarction. (www.escardio.org/guidelines) Performed By: #### 1 [id number] #### [facility] [address] [place] [address] XR Chest Single Viewon 01-17 XR Chest [...] Young M.D. Transcribed by: BRENT Technologist: FREDIS Normal [facility] eGFRon 01-17-2019 GFR/1.73 sq M predicted among blacks MDRD (S/P/Bld) [Vol rate/Area] mL/min/{1.73_m2} Normal >=59 [facility] Comment on above: Order Comment: Order added by Discern Expert. Result Comment: eGFR is race adjusted. AA=. Performed By: #### 2 167765, 2734014, 55605338, 1508627, 51771991, [id number] #### [facility] [address] [place] [address] GFR/1.73 sq M predicted among non-blacks MDRD (S/P/Bld) [Vol rate/Area] mL/min/{1.73_m2} Normal >=59 [facility] Comment on above: Order Comment: Order added by Discern Expert. Result Comment: Construction Assistant angie kidney disease could be indicated at eGFR's of less than 60 mL/min/1.73m2. Kidney failure is indicated at less than 15 mL/min/1.73m2. Performed By: #### 2 788887, 4241089, 05352983, 2995561, 30668193, [id number] #### [facility] [address] [place] [address] Vital Signs Date Time Vital Sign Value Performing Clinician Davidi lity 07-10-2024 12:50-0400 Body temperature 97.9 [degF] Rik Newton ([facility]) DO Work Phone: [facility] 07-10-2024 12:50-0400 Diastolic blood pressure 65 mm[Hg] Rik Newton ([facility]) DO Work Phone: [facility] 07-10-2024 12:50-0400 Heart rate 54 /min Rik Newton ([facility]) DO Work Phone: [facility] 07-10-2024 12:50-0400 Respiratory rate 14 /min Rik Newton ([facility]) DO Work Phone: [facility] 07-10-2024 12:50-0400 SaO2% (BldA) [Mass fraction] 95 % Rik Newton ([facility]) DO Work Phone: [facility] 07-10-2024 12:50-0400 Systolic blood pressure 120 mm[Hg] Rik Newton (Clinic) DO Work Phone: [facility] 07-10-2024 05:02-0400 Body weight 86.1 kg Rik Newton ([facility]) DO Work Phone: [facility] 07-09-2024 22:47-0400 Body height 175.26 cm Rik Newton ([facility]) DO Work Phone: [facility] 05-02-2024 16:30-0500 Body temperature 97.3 [degF] Javon Chong DO Work Phone: [facility] 05-02-2024 16:30-0500 Diastolic blood pressure 80 mm[Hg] Javon Chong DO Work Phone: [facility] 05-02-2024 16:30-0500 Heart rate 93 /min Javon Chong DO Work Phone: [facility] 05-02-2024 16:30-0500 SaO2% (BldA) [Mass fraction] 98 % Javon Chong DO Work Phone: [facility] 05-02-2024 16:30-0500 Systolic blood pressure 122 mm[Hg] Javon Chong DO Work Phone: [facility] 11-11-2021 13:17-0400 Diastolic blood pressure 59 mm[Hg] Simone Krause Work Phone: [employer] 11-11-2021 13:17-0400 Heart rate 61 /min Simone Jimi Work Phone: [employer] 11-11-2021 13:17-0400 SaO2% (BldA) [Mass fraction] 97 % Simone Krause Work Phone: [employer] 11-11-2021 13:17-0400 Systolic blood pressure 115 mm[Hg] Simone Krause Work Phone: [employer] 11-11-2021 11:56-0400 Body height 175.3 cm Simone Jimi Work Phone: [employer] 11-11-2021 11:56-0400 Body mass index (BMI) [Ratio] 28.06 kg/m2 Simone Krause Work Phone: [employer] 11-11-2021 11:56-0400 Body temperature 97.59 [degF] Simone Jimi Work Phone: [employer] 11-11-2021 11:56-0400 Body weight 86.18 kg Simone Jimi Work Phone: [employer] 11-11-2021 11:56-0400 Respiratory rate 14 /min Simone Krause Work Phone: [facility] [employer] 06-26-2021 15:29-0500 Body height 175.3 cm Simone Krause Work Phone: [employer] 06-26-2021 15:29-0500 Body mass index (BMI) [Ratio] 28.06 kg/m2 Simone Krause Work Phone: [employer] 06-26-2021 15:29-0500 Body temperature 97.59 [degF] Simone Krause Work Phone: [employer] 06-26-2021 15:29-0500 Body weight 86.18 kg Simone Krause Work Phone: [employer] 06-26-2021 15:29-0500 Diastolic blood pressure 66 mm[Hg] Simone Krause Work Phone: [employer] 06-26-2021 15:29-0500 Heart rate 55 /min Simone Krause Work Phone: [employer] 06-26-2021 15:29-0500 Respiratory rate 18 /min Simone Krause Work Phone: [employer] 06-26-2021 15:29-0500 SaO2% (BldA) [Mass fraction] 99 % Simone Krause Work Phone: [employer] 06-26-2021 15:29-0500 Systolic blood pressure 109 mm[Hg] Simone Krause Work Phone: [employer] 06-18-2021 19:13-0500 Body temperature 97.3 [degF] Dea Swartz MD Work Phone: [employer] 06-18-2021 19:13-0500 Diastolic blood pressure 71 mm[Hg] Dea Swartz MD Work Phone: [employer] 06-18-2021 19:13-0500 Heart rate 62 /min Dea Swartz MD Work Phone: [employer] 06-18-2021 19:13-0500 Respiratory rate 19 /min Dea Swartz MD Work Phone: [facility] 06-18-2021 19:13-0500 SaO2% (BldA) [Mass fraction] 98 % Dea Swartz MD Work Phone: [facility] 06-18-2021 19:13-0500 Systolic blood pressure 123 mm[Hg] Dea Swartz MD Work Phone: [facility] Encounters Encounter Date Encounter Type Care Provider Facility Start: 07-10-2024 Non-patient / Non-visit Rik Newton (Clinic) DO Work Phone: [facility] Work Phone: Start: 07-09-2024 End: 07-10-2024 Evaluation and management of inpatient Rik Newton (Clinic) DO Work Phone: [facility] Work Phone: Start: 07-09-2024 End: 07-10-2024 observation encounter Rik Newton (Clinic) DO Work Phone: [facility] Work Phone: Start: 07-09-2024 End: 07-10-2024 ambulatory Emory Anthony Facility:[facility] Start: 05-02-2024 End: 05-02-2024 ambulatory JAVON CHONG Not Available Start: 05-02-2024 End: 05-02-2024 Office outpatient visit 25 minutes Javon Chong DO Work Phone: [facility] Comment on above: Strain of neck muscl e, initial encounter; Cervical paraspinal muscle spasm; Neck pain Start: 11-11-2021 Emergency department patient visit [facility] Start: 11-11-2021 End: 11-11-2021 Emergency department patient visit [facility] Work Phone: [facility] ED Comment on above: Strain of lumbar reg ion, initial encounter (Primary Dx) Start: 06-26-2021 End: 06-26-2021 Emergency department patient visit [facility] Start: 06-26-2021 End: 06-26-2021 Emergency department patient visit Simone Krause Work Phone: [facility] ED Comment on above: Nephrolithiasis (Catrina adria Dx) Start: 06-18-2021 End: 06-18-2021 Emergency department patient visit DEA SWARTZ [facility] Start: 06-18-2021 End: 06-18-2021 Emergency department patient visit Dea Swartz MD Work Phone: [facility] ED Comment on above: Kidney stone (Primar y Dx) Start: 06-10-2021 End: 06-13-2021 ambulatory [facility] Start: 06-10-2021 End: 06-12-2021 Subsequent hospital visit by physician Mth Mri Scanner [facility] MRI Comment on above: Left foot pain Start: 10-06-2020 End: 10-06-[address] LACY PHILIP Facility:[facility] Procedures Date Procedure Procedure Detail Performing Clinician Start: 07-10-2024 Esophagogastroduodenoscopy Rik Newton ( Clinic) DO Work Phone: Start: 05-02-2024 Radex spine cervical 4 or 5 views Justine Chong DO Work Phone: Start: 11-11-2021 Radex spine lumbosacral 2/3 views Mark Massey PA-C Work Phone: Start: 06-26-2021 Comprehensive metabolic panel Gary diop MD Work Phone: Start: 06-26-2021 Ct abdomen & pelvis w/o contrast material Shruti Newton PA-C Work Phone: Start: 06-26-2021 Urnls dip stick/tablet reagent auto microscopy Gary Ramos MD Work Phone: Start: 06-18-2021 Urinalysis microscopic only Dea delvalle MD Work Phone: Start: 06-18-2021 Urnls dip stick/tablet rgnt auto w/o microscopy Dea Swartz MD Work Phone: Start: 06-18-2021 Assay of magnesium Dea Swartz MD Work Phone: Start: 06-18-2021 BASIC METABOLIC PANEL W/ REFLEX TO MG FOR LOW K Dea Swartz MD Work Phone: Start: 06-10-2021 Mri lower extrem oth/thn jt w/o contr matrl Simone Stevensgo Work Phone: Plan of Treatment Date Care Activity Detail Author Start: 07-10-2024 [facility] Start: 07-09-2024 Referral to heel nail rasper [facility] Start: 07-09-2024 Hospital admission [facility] Start: 12-18-2021 Influenza vaccination Flu vaccine (#1) [facility] Start: 12-18-2020 Influenza vaccination Flu vaccine (#1) [facility] Start: 2008 DTaP/Tdap/Td vaccine (1 - Tdap) DTaP/Tdap/Td vaccine (1 - Tdap) [facility] Start: 10-30-2007 Hepatitis C screening Hepatitis C screen [facility] Start: 2004 HIV screening HIV screen [facility] Start: 2001 Depression Screen Depression Screen [facility] Start: 1994 COVID-19 Vaccine (1) COVID-19 Vaccine (1) [facility] Start: 1990 Varicella vaccine (1 of 2 - 2-dose childhood series) Varicella vaccine (1 of 2 - 2-dose childhood series) [facility] Start: 05-01-1990 COVID-19 Vaccine (#1) COVID-19 Vaccine (#1) [facility] Start: 1989 Hepatitis C screening Hepatitis C screen [facility] Patient Education Know your Meds [facility] Work Phone: Patient referral [facility] Work Phone: Payers Date Payer Category Payer Self-pay 2024 Unknown [id number] 2023 Private Health Insurance [employer] V A CCN [id number] 2021 Unknown [id number] 2021 Unknown [id number] 1989 Unknown [id number]. 173 1989 Unknown [id number] [id number]. 173 1989 Unknown [id number] [id number]. 173 1989 Unknown [id number] [id number]. 173 1989 Unknown [id number] [id number]. 593 1989 Unknown [id number] [id number]. 1259 1989 Unknown [id number] [id number]. 1259 1959 Unknown [id number] Unknown [id number] 531 Social History Date Type Detail Facility Tobacco smoking status NHIS Tobacco smoking consumption unknown [employer] Work Phone: Start: 1990 Sex Assigned At Not on file M [facility] Work Phone: Start: 06-18-2021 End: 11-11-2021 Tobacco smoking status NHIS Never smoked tobacco [employer] Work Phone: Start: 06-18-2021 End: 11-11-2021 Tobacco use and exposure Smokeless tobacco non-user [employer] Work Phone: Start: 06-18-2021 End: 11-11-2021 Alcohol intake Current drinker of alcohol (finding) [employer] Work Phone: Start: 06-18-2021 History SDOH Alcohol Comment Occ [employer] Work Phone: Start: 11-01-2021 End: 11-11-2021 Exposure to SARS-CoV-2 (event) Not sure [employer] Work Phone: Gender identity Not on file [facility] Start: 07-10-2024 Tobacco smoking status NHIS Ex-smoker (finding) [facility] Start: 07-10-2024 Sex Male (finding) [facility] Start: 1990 Sex Assigned At Male F [facility] Goals Date Patient Goal Desired Activity /State Functional Status Date Assessment Result Facility 07-10-2024 Functional status Patient at Baseline [facility] Work Phone: Mental Status Date Assessment Result Facility 07-10-2024 Cognitive function Cognitive Sta tus Patient at Baseline [facility] Work Phone: Clinical Notes 06-18-2021 to 07-10-2024 Note Date & Type Note Facility 07-10-2024 Discharge summary [facility] 07-10-2024 Consult note Note Date/Time July 10, 2024 8:56am [facility] [address] [place] [address] Gastroenterology Consult Note Signed Patient: Abdiel Manuel MR#: [id number] : 1990 Acct:[id number] Age/Sex: 33 / M Adm Date: 5 Loc: 4N Room: 8O9192-3 Type: ADM INOo Attending Dr: Danette Carbajal MD Copies to: MD Rik Sigala DO Rafik Massouh, MD~ HPI Data of Consult Date of Consultation: 07/10/24 Requesting Physician: Danette Carbajal MD Consult Narrative History of present illness: Mr. Manuel is a 33 year old male who gastroenterology is consulted for food impaction Patient ate steak yesterday around 5:30 PM when he felt the food bolus stuck in esophagus. Patient is tolerating his secretions however he has not been able toswallow any more solid food. cc:: CC: Danette Carbajal MD Review of Systems Review of Systems All other systems reviewed & are negative unless noted below or in HPI PMFSH Social History Smoking Status: Former smoker Tobacco Type: cigarettes Substance Use Type: None Meds Medications and Allergies Allergies shellfish derived Adverse Reaction (Severe, Verified 07/09/24 22:50) Swelling of Lip/Tongue/Throat venom-honey bee (bee venom (honey bee)) Adverse Reaction (Severe, Verified 07/09/24 22:50) Swelling Home Medications fluoxetine 40 mg capsule (Prozac) 80 mg PO QAM 07/09/24 [History Confirmed 07/09/24] hydroxyzine HCl 50 mg tablet 50 mg PO BID 07/09/24 [History Confirmed 07/09/24] topiramate 100 mg tablet (Topamax) 100 mg PO BID 07/09/24 [History Confirmed 07/09/24] Exam Physical Exam Vital Signs: Temp Pulse Resp BP Pulse Ox O2 Del Method 98.2 F 77 18 112/69 94 L Room Air 07/10/24 04:00 07/10/24 04:00 07/10/24 04:00 07/10/24 04:00 07/10/24 04:00 07/10/24 04:00 Narrative: General appearance: NAD Skin: No jaundice Head: NC/AT Eyes: Anicteric Neck: Supple Lungs: Normal respiratory effort, no use of accessory muscles Abdomen: Nondistended Neuro: Ox3. Results - Gastroenterology Labs Labs: Laboratory Results - last 24 hr 07/10/24 04:56 Corrected WBC 8.6 Uncorrected WBC Count 8.6 RBC 4.47 Hgb 14.2 Hct 41.2 MCV 92.2 MCH 31.7 MCHC 34.3 RDW 13.9 Plt Count 277 MPV 9.0 Neut % (Auto) 51.3 Lymph % (Auto) 32.9 Hawkins % (Auto) 8.1 Eos % (Auto) 6.4 Baso % (Auto) 1.3 Nucleat RBC Rel Count 0.1 Neut # (Auto) 4.4 Lymph # (Auto) 2.8 Hawkins # (Auto) 0.7 Eos # (Auto) 0.6 H Baso # (Auto) 0.1 PT 11.9 INR 1.0 PHA Creatinine Clear 109.86 Sodium 143 Potassium 4.2 Chloride 110 H Carbon Dioxide 28.3 Anion Gap 8.9 BUN 13 Creatinine 1.03 Est GFR (CKD-EPI) > 60.0 Glucose 91 Calcium 8.7 A&P - Gastroenterology Assessment/Plan (1) Food impaction of esophagus: Plan Mr. Manuel is a 33 year old male who gastroenterology is consulted for food impaction Patient ate steak yesterday around 5:30 PM when he felt the food bolus stuck in esophagus. Patient is tolerating his secretions -Will arrange for EGD. Please keep the patient n.p.o. Documented By: Sushma Rico MD 07/10/24 0854 Signed By: <Electronically signed by Sushma Rico MD> 07/10/24 0851 [facility] Work Phone: [phone] 577-272903-24-2025 [place] [address] EGD Procedure Note Signed Patient: Abdiel Manuel MR#: [id number] : 1990 Acct:[id number] Age/Sex: 33 / M Adm Date: 5 Loc: 4N Room: [address] [place] [address] Type: ADM INOo Attending Dr: Danette Carbajal MD Copies to: MD Rik Sigala DO Rafik Massouh, MD~ Esophagogastroduodenoscopy Date/Provider Date: 07/10/2024 Sushma Rico MD Procedure Findings: Procedure: EGD with biopsy Indication: 33-year-old man here for EGD for treatment of food impaction Pre-operative diagnosis: Food impaction Post-operative diagnosis: No evidence of a food bolus noted in the esophagus, esophageal ulcer at the GE junction, duodenitis, circumferential folds with furrows noted throughout the esophagus suggestive of EOE Sedation: propofol per anesthesia dept O2 oximetry, hemodynamic monitoring was performed pre, during, and post procedure. Patient was identified, H&P completed, patient was given full explanation of the procedure as well as associatedrisks and written consent wasobtained prior to procedure. Patient expressed complete understanding of the procedure as well as alternatives to the procedure and to anesthesia and agreed to proceed with the procedure as indicated. Patient was immediately reassessed prior to IV sedation. Following IV sedation, patient was placed in the left lateral decubitus position. Bite block was inserted. Endoscope was passed through the mouth, into the esophagus. Endoscope was advanced into the stomach through the pyloricchannel and into the 2nd portion of duodenum by direct visualization. Endoscopewas withdrawn into the stomach and retroflexion was performed. The endoscope was straightened,the stomach was decompressed. Endoscope was withdrawn into the esophagus then completely removed with the findings as below. Findings: DUODENUM: Erythematous mucosa noted in the bulb otherwise descending portion appeared normal. STOMACH: pyloric channel, antrum, body, fundus and cardia, including retroflexedviews appear normal. Gastric biopsies were done using biopsy forceps to assess for H. pylori. ESOPHAGUS: No evidence of a food bolus noted in the esophagus, a 1 cm clean- based esophageal ulcer noted at the GE junction, circumferential folds with furrows noted throughout the esophagus suggestive of eosinophilic esophagitis. Biopsies were done from the proximal esophagus and distal esophagus to evaluate for EOE. Diaphragmatic hiatus was 40 cm from incisors and GE junction (upper margin of gastric folds) was at40 cm from incisors. Squamocolumnar junction was at 40 cmfrom incisors. Biopsy taken: Yes Complications: None EBL: Minimal Recommendations: -Protonix 40 mg twice daily x 8 weeks -Follow up pathology -Repeat EGD in 8 weeks Following a period of recovery, patient was seen and given full explanation of the procedure. Patient tolerated the procedure well and will be discharged in satisfactory, stable condition. Sushma Rico M.D. Documented By: Sushma Rico MD 07/10/2433 Signed By: 07/10/2436 [facility]03-24-[address] [address] Gastroenterology Consult Note Signed Patient: Abdiel Manuel MR#: [id number] : 1990 Acct:[id number] Age/Sex: 33 / M Adm Date: 5 Loc: Room: [address] [place] [address] Type: ADM INOo Attending Dr: Danette Carbajal MD Copies to: MD Rik Sigala DO Rafik Massouh, MD~ HPI Data of Consult Date of Consultation: 07/10/24 Requesting Physician: Danette Carbajal MD Consult Narrative History of present illness: Mr. Manuel is a 33 year old male who gastroenterology is consulted for food impaction Patient ate steak yesterday around 5:30 PM when he felt the food bolus stuck in esophagus. Patient is tolerating his secretions however he has not been able toswallow any more solid food. cc:: CC: Danette Carbajal MD Review of Systems Review of Systems All other systems reviewed & are negative unless noted below or in HPI PMFSH Social History Smoking Status: Former smoker Tobacco Type: cigarettes Substance Use Type: None Meds Medications and Allergies Allergies shellfish derived Adverse Reaction (Severe, Verified 07/09/24 22:50) Swelling of Lip/Tongue/Throat venom-honey bee (bee venom (honey bee)) Adverse Reaction (Severe, Verified 07/09/24 22:50) Swelling Home Medications fluoxetine 40 mg capsule (Prozac) 80 mg PO QAM 07/09/24 [History Confirmed 07/09/24] hydroxyzine HCl 50 mg tablet 50 mg PO BID 07/09/24 [History Confirmed 07/09/24] topiramate 100 mg tablet (Topamax) 100 mg PO BID 07/09/24 [History Confirmed 07/09/24] Exam Physical Exam Vital Signs: Temp Pulse Resp BP Pulse Ox O2 Del Method 98.2 F 77 18 112/69 94 L Room Air 07/10/24 04:00 07/10/24 04:00 07/10/24 04:00 07/10/24 04:00 07/10/24 04:00 07/10/24 04:00 Narrative: General appearance: NAD Skin: No jaundice Head: NC/AT Eyes: Anicteric Neck: Supple Lungs: Normal respiratory effort, no use of accessory muscles Abdomen: Nondistended Neuro: Ox3. Results - Gastroenterology Labs Labs: Laboratory Results - last 24 hr 07/10/24 04:56 Corrected WBC 8.6 Uncorrected WBC Count 8.6 RBC 4.47 Hgb 14.2 Hct 41.2 MCV 92.2 MCH 31.7 MCHC 34.3 RDW 13.9 Plt Count 277 MPV 9.0 Neut % (Auto) 51.3 Lymph % (Auto) 32.9 Hawkins % (Auto) 8.1 Eos % (Auto) 6.4 Baso % (Auto) 1.3 Nucleat RBC Rel Count 0.1 Neut # (Auto) 4.4 Lymph # (Auto) 2.8 Hawkins # (Auto) 0.7 Eos # (Auto) 0.6 H Baso # (Auto) 0.1 PT 11.9 INR 1.0 PHA Creatinine Clear 109.86 Sodium 143 Potassium 4.2 Chloride 110 H Carbon Dioxide 28.3 Anion Gap 8.9 BUN 13 Creatinine 1.03 Est GFR (CKD-EPI) > 60.0 Glucose 91 Calcium 8.7 A&P - Gastroenterology Assessment/Plan (1) Food impaction of esophagus: Plan Mr. Manuel is a 33 year old male who gastroenterology is consulted for food impaction Patient ate steak yesterday around 5:30 PM when he felt the food bolus stuck in esophagus. Patient is tolerating his secretions -Will arrange for EGD. Please keep the patient n.p.o. Documented By: Sushma Rico MD 07/10/24 0854 Signed By: 07/10/24 0856 [facility]03-24-2025 History and physical note Author Emory Anthony [facility] Note Date/Time July 09, 2024 11: 35pm [facility] [address] [place] [address] Hospitalist H&P Signed Patient: Abdiel Manuel MR#: [id number] : 1990 Acct:[id number] Age/Sex: 33 / M Adm Date: 5 Loc: 4N Room: [address] [place] [address] Type: ADM IN Attending Dr: Emory Anthony MD Copies to: DO Emory Hansen MD~ HPI DATE OF EXAMINATION: 07/09/24 CHIEF COMPLAINT: Food Impaction HISTORY OF PRESENT ILLNESS: Abdiel Manuel is a 33 y/o M h/o PTSD on fluoxetine and topomax, presented to [facility] 07/09/24 with globus sensation, pain, nausea, after reported piece of steak lodged in throat, referred to [facility] by GI for removal of food impaction via EGD. On assessment at bedside in 4 N., patient laying in bed, uncomfortable but stable, endorses above history, states was eating dinner when developed globus sensation prompting presentation. Continues to have nausea and slight emesis, no respiratory distress. No prior episodes, no prior endoscopic evaluations on file. Did take fluoxetine and Topamax this a.m. In the [place] emergency room, WBC 8.4, hemoglobin 15.4, platelets 313, sodium 144, potassium 3.3, chloride 106, BUN 12, creatinine 1.29. Review of Systems Review of Systems All other systems reviewed & are negative unless noted below or in HPI PMFSH Social History Smoking Status: Former smoker Tobacco Type: cigarettes Substance Use Type: None Meds Medications and Allergies Allergies shellfish derived Adverse Reaction (Severe, Verified 07/09/24 22:50) Swelling of Lip/Tongue/Throat venom-honey bee (bee venom (honey bee)) Adverse Reaction (Severe, Verified 07/09/24 22:50) Swelling Home Medications fluoxetine 40 mg capsule (Prozac) 80 mg PO QAM 07/09/24 [History Confirmed 07/09/24] hydroxyzine HCl 50 mg tablet 50 mg PO BID 07/09/24 [History Confirmed 07/09/24] topiramate 100 mg tablet (Topamax) 100 mg PO BID 07/09/24 [History Confirmed 07/09/24] Exam Physical Exam Vital Signs: Temp Resp BP Pulse Ox O2 Del Method 98 F 18 130/85 97 Room Air 07/09/24 22:47 07/09/24 22:47 07/09/24 22:47 07/09/24 22:47 07/09/24 22:47 Narrative: General: uncomfortable but not in distress Orientation: alert, awake and oriented x3 Head: normal to inspection Neck: normal visual inspection Cardio: no JVD, regular rate, regular rhythm Chest palpation & inspection: normal inspection of the chest Resp Effort & Inspection: normal respiratory effort Abd: soft, non-tender, non-distended Extremities: Warm well perfused, no edema Assessment & Plan Assessment/Plan (1) Food impaction of esophagus: Plan Abdiel Manuel is a 33 y/o M h/o PTSD on fluoxetine and topomax, presented to [facility] 07/09/24 with globus sensation, pain, nausea, after reported piece of steak lodged in throat, referred to [facility] by GI for removal of food impaction via EGD. 1. Food impaction - In the [place] emergency room, WBC 8.4, hemoglobin 15.4, platelets 313, sodium 144, potassium 3.3, chloride 106, BUN 12, creatinine 1.29. - Keep npo - IVF, NS 75 - replete potassium - zofran and morphine for symptomatic relief - GI consultation, aware, plan for EGD in am 2. Chronic conditions: PTSD - continue home meds in am after procedure Diet: NPO Daily Labs: CBC, BMP Lines/Drains: PIV DVT ppx: Lovenox Code status: Full Status: observation IP vs OBS Justification Based on differential dx, clinical care plan, and risk of adverse events, if untreated, in my clinical judgement this patient requires an acute care setting as: OBSERVATION because of an expectation of an under 2 midnight stay. Estimated length of stay (# of days): 2 Documented By: Emory Anthony MD 07/09/242304 Signed By: <Electronically signed by Emory Anthony MD> 07/09/24 2333 [facility] Work Phone: 1(384) 938-166803-24-2025 Evaluation note* Diagnosis Onset Date Resolution Status Admit Date Food impaction of esophagus acute July 09, 2024 10:38pm [facility] Work Phone: 1(923) 274-538403-23-2025 [place] [address] Hospitalist H&P Signed Patient: Abdiel Manuel MR#: [id number] : 1990 Acct:[id number] Age/Sex: 33 / M Adm Date: 5 Loc: 4N Room: 7S7196-8 Type: ADM IN Attending Dr: Emory Anthony MD Copies to: DO Emory Hansen MD~ HPI DATE OF EXAMINATION: 07/09/24 CHIEF COMPLAINT: Food Impaction HISTORY OF PRESENT ILLNESS: Abdiel Manuel is a 33 y/o M h/o PTSD on fluoxetine and topomax, presented to [facility] 07/09/24 with globus sensation, pain, nausea, after reported piece of steak lodged in throat, referred to [facility] by GI for removal of food impaction via EGD. On assessment at bedside in 4 N., patient laying in bed, uncomfortable but stable, endorses above history, states was eating dinner when developed globus sensation prompting presentation. Continues to have nausea and slight emesis, no respiratory distress. No prior episodes, no prior endoscopic evaluations on file. Did take fluoxetine and Topamax this a.m. In the [place] emergency room, WBC 8.4, hemoglobin 15.4, platelets 313, sodium 144, potassium 3.3,chloride 106, BUN 12, creatinine 1.29. Review of Systems Review of Systems All other systems reviewed & are negative unless noted below or in HPI PMFSH Social History Smoking Status: Former smoker Tobacco Type: cigarettes Substance Use Type: None Meds Medications and Allergies Allergies shellfish derived Adverse Reaction (Severe, Verified 07/09/24 22:50) Swelling of Lip/Tongue/Throat venom-honey bee (bee venom (honey bee)) Adverse Reaction (Severe, Verified 07/09/24 22:50) Swelling Home Medications fluoxetine 40 mg capsule (Prozac) 80 mg PO QAM 07/09/24 [History Confirmed 07/09/24] hydroxyzine HCl 50 mg tablet 50 mg PO BID 07/09/24 [History Confirmed 07/09/24] topiramate 100 mg tablet (Topamax) 100 mg PO BID 07/09/24 [History Confirmed 07/09/24] Exam Physical Exam Vital Signs: Temp Resp BP Pulse Ox O2 Del Method 98 F 18 130/85 97 Room Air 07/09/24 22:47 07/09/24 22:47 07/09/24 22:47 07/09/24 22:47 07/09/24 22:47 Narrative: General: uncomfortable but not in distress Orientation: alert, awake and oriented x3 Head: normal to inspection Neck: normal visual inspection Cardio: no JVD, regular rate, regular rhythm Chest palpation & inspection: normal inspection of the chest Resp Effort & Inspection: normal respiratory effort Abd: soft, non-tender, non-distended Extremities: Warm well perfused, no edema Assessment & Plan Assessment/Plan (1) Food impaction of esophagus: Plan Abdiel Manuel is a 33 y/o M h/o PTSD on fluoxetine and topomax, presented to [facility] 07/09/24 with globus sensation, pain, nausea, after reported piece of steak lodged in throat, referred to [facility] by GI for removal of food impaction via EGD. 1. Food impaction - In the [place] emergency room, WBC 8.4, hemoglobin 15.4, platelets 313, sodium 144, potassium 3.3, chloride 106, BUN 12, creatinine 1.29. - Keep npo - IVF, NS 75 - replete potassium - zofran and morphine for symptomatic relief - GI consultation, aware, plan for EGD in am 2. Chronic conditions: PTSD - continue home meds in am after procedure Diet: NPO Daily Labs: CBC, BMP Lines/Drains: PIV DVT ppx: Lovenox Code status: Full Status: observation IP vs OBS Justification Based on differential dx, clinical care plan, and risk of adverse events, if untreated, in my clinical judgement this patient requires an acute care setting as: OBSERVATION because of an expectation of an under 2 midnight stay. Estimated length of stay (# of days): 2 Documented By: Emory Anthony MD 07/09/242304 Signed By: 07/09/24 2335 [facility]01-14-2025 History of Present illness Narrative * Cheryl Dominguez MA - 05/02/2024 4:15 PM EST HPI: Historian of HPI: patient Abdiel Manuel [...] his rt shoulder. Pt stated [facility] [...] FROM Strength testing intact. Jobes sign negative. Supervisor Purification strengthintact. Extremities: no clubbing, cyanosis, or edema Peripheral Pulses: 2+ radial, 2+ ulnar Neurologic: sensory exam intact to UE Psych: alert, oriented, cognitive function intact, cooperative with exam XR Prelim is normal curve consentient with muscle spasm. HPI, ROS, and PE reviewed and amended by Dr. Javon Chong as necessary. Written by MALAIKA Mattson [...] 4 to 5 views documented in [place] [id number] Hospital Discharge instructions* Discharge Instructions* Mark Massey PA-C - 11/11/2021 12:51 PM [...] changing, worsening of symptoms or other concerns * Attachments The following attachments cannot be sent through Care Everywhere. * Back Pain: Relief: General Info ([place]) * Back: Strain ([place]) documented in this [facility] Phone: 1(996) 200-148003-02-2022 Hospital Discharge instructions* Instructions* Dea Swartz MD - 06/18/2021 Lab discussed with patient. Discharged with pain medication and Zofran for nausea. Symptoms not improving next 3 days patient to return to ED otherwise follow-up with primary care. documented in this encounterUnata Phone: discharge summary Author Danette Carbajal [facility] Note Date/Time July 10, 2024 11: 34am [facility] [address] [place] [address] Discharge Summary Signed Patient: Abdiel Manuel MR#: [id number] : 1990 Acct:[id number] Age/Sex: 33 / M Adm Date: 5 Loc: N Room: [id number]: Danette Carbajal MD Copies to: DO Danette Hansen MD~ Providers Date of Discharge: 07/10/24 Discharging Provider: Danette Carbajal Primary Care Provider: Rik Newton (Clinic) Consults: 07/09/24 23:16 Consult to Gastroenterology Routine Comment: Consulting Provider: [facility] - Gastroenterology Reason For Exam: food impaction Has Provider Been Notified: Yes Date of Notification: 07/10/24 Time of Notification: 08:11 Discharge Diagnosis (1) Food impaction of esophagus: (2) Esophagitis: (3) Esophageal ulcer: (4) Duodenitis: Final Diagnosis Final Discharge Diagnosis: As listed above. Summary Hospital Course Hospital course: Mr. Manuel is a 33-year-old gentleman who presented to the emergency room withsuspected food impaction in his esophagus. This started after patient was eating steak and felt about the steak pizza did not go through. Patient did nothave any problems swallowing in the past. No previous similar episode. He was transferred to [facility] for GI investigation. He was seen by GI already this morning and plan for an EGD. Patient reported having history of hypertension and PTSD. He denies any other active symptoms. No active vomiting. No hematemesis or melena. No fever or chills. His exam is unremarkable. His abdomen is soft, nontender. Patient had an EGD. The please refer to procedure note for details. Positive for esophageal ulcer, duodenitis as well as esophageal changes suggestive of eosinophilic esophagitis. Biopsies were taken. Dr. Rico recommended Protonix 40 mg twice a day for 8 weeks and I will follow- up with him to review pending pathology report and the schedule repeat EGD in 8 weeks. I went back and discussed the findings with the patient and his . The patient is comfortable going home. Time Spent with Patient Time spent providing/coordinating discharge services (# min): 25 Surgeries and Procedures Operation Date: 07/10/24 11:50 <No data on this case meets the specified criteria> Discharge Plan Discharge Plan Patient Disposition: Home Activity: Ambulate as Tolerated Diet: Regular Additional Instructions: I may not have addressed or treated all of your medical illnesses or the abnormal blood work or imaging studies during this hospitalization. Please ask your primary care provider to obtain [facility] records entirely to follow up on all of the abnormal physical, laboratory, and imaging findings that I have not addressed. Please do not eat large piece of chicken or steak. Small bites. Please return back to the emergency room or seek medical attention if your symptoms worsen or return. Discharging you from [facility] does not mean that your medical care ends here and now. You may still need additional monitoring, work up, investigation, and treatment plan to be handled from this point on by out patient providers including your primary care provider and specialists. For any medication question, please contact your retail pharmacist or your primary care provider. Thank you. Instructions: Know your Meds Prescriptions: New pantoprazole 40 mg Tablet,Delayed Release (Dr/Ec) 40 mg PO BID Qty: 60 2RF Continued hydroxyzine HCl 50 mg tablet 50 mg PO BID topiramate [Topamax] 100 mg tablet 100 mg PO BID fluoxetine [Prozac] 40 mg capsule 80 mg PO QAM Follow Up: Deborah (Clinic),DO [facility] [Primary Care Provider] - (The office is currently unavailable. Please call the office for a follow-up appointment within7-10 days. ) Sushma Rico MD [Active Staff] - (The office will contact you with your pathology results. The office will also contact you to arrange a repeat EGD in 8weeks. Please call the office if you have any questions. ) Exam Physical Exam Vital Signs: Temp Pulse Resp BP Pulse Ox O2 Del Method 98.2 F 77 18 112/69 94 L Room Air 07/10/24 04:00 07/10/24 04:00 07/10/24 04:00 07/10/24 04:00 07/10/24 04:00 07/10/24 04:00 Narrative: [pt is awake and alert. oriented to place, time and person. Patient reported having fullness sensation in his mid chest. HEENT: [place] conjunctiva and NL buccal mucosa Neck: Supple, no tenderness Endocrine: No Thyromegaly. Vascular: No JVD or carotid bruit. Lymphatic: No cervical lymphadenopathy. Chest: CTA no DTP. Heart RRR, no extra sound or murmur. Abd: Soft, no tenderness, no rebound and no rigidity. Increase abd girth therefore clinically I could not exclude the possibility of intra abd mass or organomegaly. LE: No cyanosis or clubbing, no varices or edema. Neuro: A A O. Nl speech, comprehension and attention. Nl and symetrical motor and tone examination through out. []] Diagnostic Studies Completed and Pending Studies Pending studies at discharge: 07/10/24 09:04 LFT [Hepatic Panel] [CHEM] Routine 07/11/24 05:00 Basic Metabolic Panel [CHEM] IN AM Complete Blood Count Auto Diff IN AM 07/12/24 05:00 Basic Metabolic Panel [CHEM] IN AM Complete Blood Count Auto Diff IN AM 07/13/24 05:00 Basic Metabolic Panel [CHEM] IN AM Complete Blood Count Auto Diff IN AM 07/14/24 05:00 Basic Metabolic Panel [CHEM] IN AM Complete Blood Count Auto Diff IN AM 07/15/24 05:00 Basic Metabolic Panel [CHEM] IN AM Complete Blood Count Auto Diff IN AM 07/16/24 05:00 Basic Metabolic Panel [CHEM] IN AM Complete Blood Count Auto Diff IN AM 07/17/24 05:00 Basic Metabolic Panel [CHEM] IN AM Complete Blood Count Auto Diff IN AM 07/18/24 05:00 Basic Metabolic Panel [CHEM] IN AM Complete Blood Count Auto Diff IN AM 07/19/24 05:00 Basic Metabolic Panel [CHEM] IN AM Complete Blood Count Auto Diff IN AM Labs on day of discharge: 07/10/24 04:56: Corrected WBC 8.6, Uncorrected WBC Count 8.6, RBC 4.47, Hgb 14.2, Hct 41.2, MCV 92.2, MCH 31.7, MCHC 34.3, RDW 13.9, Plt Count 277, MPV 9.0, Neut % (Auto) 51.3, Lymph % (Auto) 32.9, Hawkins % (Auto) 8.1, Eos % (Auto) 6.4, Baso % (Auto) 1.3, Nucleat RBC Rel Count 0.1, Neut # (Auto) 4.4, Lymph # (Auto) 2.8, Hawkins # (Auto) 0.7, Eos # (Auto) 0.6 H, Baso # (Auto) 0.1, PT 11.9, INR 1.0, PHA Creatinine Clear 109.86, Sodium 143, Potassium 4.2, Chloride 110 H, Carbon Dioxide 28.3, Anion Gap 8.9, BUN 13, Creatinine 1.03, Est GFR (CKD-EPI) > 60.0, Glucose 91, Calcium 8.7 Documented By: Danette Carbajal MD 07/10/24 0905 Signed By: <Electronically signed by Danette Carbajal MD> 07/10/24 1130 [facility] Work Phone: Evaluation note* Diagnosis Left foot pain Pain in limb documented in this encounter [facility] [employer] Work Phone: evaluation note* Diagnosis Kidney stone- Primary Calculus of kidney documented in this encounter [facility] [employer] Phone: evalckhksn note* Diagnosis Nephrolithiasis- Primary Calculus of kidney documented in this encounter [facility] [employer] Phone: evaluation note* Diagnosis Strain of lumbar region, initial encounter- Primary documented in this encounter [facility] [employer] Work Phone: evaluation note* Diagnosis Strain of neck muscle, initial encounter Cervical paraspinal muscle spasm Spasm of muscle Neck pain Cervicalgia [facility]* Attachments The following attachments cannot be sent through Care Everywhere. * Kidney Stone ([place]) [facility] [employer] Phone: Summary Purpose Family History No Family History Records FoundNo Family History Records FoundNo Family History Records FoundNo Family History Records FoundNo Family History Records Found Advance Directives No Advanced Directives Records Found Advance Directive Response Recorded Date/ Time Advance Directives No December 14, 2023 12:40pm Reason for Referral Specialty Diagnoses / Procedures Referred By Collin bailey Referred To Contact Radiology Diagnoses Left foot pain Procedures MRI FOOT LEFT WO CONTRAST Simone Krause [address] [place] [address] Referral ID Status Reason Start Date Expiration Date Visits Re quested Visits Authorized [id number] Closed 05/26/2021 07/25/2021 1 1 Chief Complaint and Reason for Visit Chief Complaint Admit Date Food impaction July 09, 2024 10: 38pm Food impaction July 10, 2024 8:5 4am Reason for Visit Admit Date Food impaction of esophagus July 09, 2024 10:38pm Additional Source Comments (unrecognized sect ion and content) No Status Records FoundNo Status Records FoundNo Status Records FoundNo Status Records FoundNo Status Records Found INFORMATION SOURCE (unrecogn ized section and content) DATE CREATED AUTHOR 01/19/2019 Blas Recomm[facility] DATE CREATED AUTHOR AUTHOR'S ORGANIZ ATION 11/20/2021 [facility] DATE CREATED AUTHOR AUTHOR'S ORGANIZ ATION 02/20/2022 [facility] DATE CREATED AUTHOR AUTHOR'S ORGANIZ ATION 05/06/2024 [facility] EPIC DATE CREATED AUTHOR AUTHOR'S ORGANIZ ATION 08/27/2024 [facility] Reason for Visit (unrecogniz ed section and content) Specialty Diagnoses / Procedures Referred By Collin t Referred To Contact Radiology Diagnoses Left foot pain Procedures MRI FOOT LEFT WO CONTRAST Jimi, Simone [address] [place] [id number] Referral ID Status Reason Start Date Expiration Date Visits Re quested Visits Authorized [id number] Closed 05/26/2021 07/25/2021 1 1 Reason Comments Flank Pain Right side onset few hours ago - hx of kidney stones. Reason Comments Nephrolithiasis Pt reports he has no t been able to pass a kideny stone over the past week. C/o pain in bladder. Reason Comments Back Pain C/o right sided back pain with twisting injury Care Teams (unrecognized sec tion and content) Payroll Auditor Relationship Specialty Start Date End Date Jimi Simone [place] [address] PCP - General 06/09/21 Payroll Auditor Relationship Specialty Start Date End Date Jimi Simone [address] [place], [place] [address]s[place] [address] PCP - General 06/09/21 Payroll Auditor Relationship Specialty Start Date End Date Jimi, Simone [facility] [place] [address] PCP - General 06/09/21 Team Status: Active Member Role Status Dates Rik Newton (Clinic) , [facility] Primary Care Prov ider Active Team Status: Inactive Member Role Status Dates Rik Newton (Clinic) , [facility] Primary Care Provider Active Start: July 09, 2024 End: July 10, 2024 Emory Anthony MD Admit Provider Active Start: Luis purvis 2024 End: July 10, 2024 Danette Carbajal MD Attending Provider Active Sta rt: July 09, 2024 End: July 10, 2024 Sascha Valdes MD Other Provider Active Start : July 09, 2024 End: July 10, 2024 Kj Stephens APRN Other Provider Active St art: July 09, 2024 End: July 10, 2024 Sushma Rico MD Other Provider Active Start: [facility] 2024 End: July 10, 2024 Juliette Lay DO Other Provider Active Start: July 09, 2024 End: July 10, 2024 David Lam APRN Other Provider Active Sta rt: July 09, 2024 End: July 10, 2024 Team Status: Active Member Role Status Dates Rik Newton (Clinic) , [facility] Primary Care Provider Active Start: July 10, 2024 Emory Anthony MD Admit Provider Active Start: [facility] 2024 Danette Carbajal MD Other Provider Active Start: July 10, 2024 Sascha Valdes MD Other Provider Active Start : July 10, 2024 Kj Stephens APRN Other Provider Active St art: July 10, 2024 Sushma Rico MD Attending Provider, Other Provider Active Start: July 10, 2024 Juliette Lay DO Other Provider Active Start: July 10, 2024 David Lam APRN Other Provider Active Sta rt: July 10, 2024 Ordered Prescriptions (unrec ognized section and content) [...] not administer for more than 5 days. 1611 (Given - Provid er: Kanchan Chung RN) [...] BE BASED ON THE PRIMARY CLINICAL RECORDS. [employer] provides no warranty or guarantee of the accuracy or completeness of information in this document.
--- NOTE | 2024-08-27 18:04 | ED.GENADUL1 ---
HPI HPI - General Adult General Chief complaint: Extremity Injury, Upper Stated complaint: DOMENICA GREENBERG IN HAND Time Seen by Provider: 08/27/24 16:46 Source: patient Mode of arrival: walk-in Limitations: no limitations History of Present Illness HPI narrative: 33-year-old male presents here with a chief complaint of a puncture wound, laceration between his 2nd and 3rd digit in the webspace of the right hand. He is right-hand dominant. He was using an Kennedy wrench to put together a swing set and pinched his finger. No acute foreign body noted initially. He is not up-to-date on tetanus. 2 cm laceration with subcutaneous fat is exposed. No other deep structure damage noted. He has full range of motion. Injury occurred just prior to coming into the emergency room Related Data Home Medications ?Medication ?Instructions ?Recorded ?Confirmed cholecalciferol (vitamin D3) 50 50 mcg PO DAILY 10/11/23 08/27/24 mcg (2,000 unit) tablet (Vitamin D3) fluoxetine 20 mg capsule 80 mg PO DAILY 10/11/23 08/27/24 hydroxyzine HCl 50 mg tablet 50 mg PO BID 10/11/23 08/27/24 pantoprazole 40 mg granules 40 mg PO DAILY 08/27/24 08/27/24 delayed-release for susp in packet (Protonix) prazosin 2 mg capsule 2 mg PO DAILY 08/27/24 08/27/24 Previous Rx's ?Medication ?Instructions ?Recorded cephalexin 500 mg capsule 500 mg PO BID 10 days #20 caps 08/27/24 Allergies Allergy/AdvReac Type Severity Reaction Status Date / Time No Known Drug Allergies Allergy Verified 06/09/24 21:21 Review of Systems ROS Status of ROS 10 or more systems reviewed and unremarkable except as noted in history and below PFSH PFSH Social History Little interest or pleasure in doing things: not at all Feeling down, depressed, or hopeless: not at all Exam Narrative Exam Narrative: All Systems are negative except as noted/marked.All systems reviewed and otherwise negative Nurses note and vital signs reviewed and patient is not hypoxic. General: The patient appears well and in no apparent distress. Patient is resting comfortably on cart. Skin: Warm, dry, no pallor noted. There is no rash noted. Head: Normocephalic, atraumatic Eye: Normal conjunctiva, no drainage, EOMI. PERRL Ears, Nose, Mouth, and Throat: oral mucosa is moist. Nares patent. Mouth without vesicles. Ear canals patent. Tm's without Erythema Musculoskeletal: Laceration between the webspace of the 2nd and 3rd digit of the right hand. No active bleeding, no foreign body, no deep structure damage, small amount of subcutaneous fat is exposed. The patient has no evidence of calf tenderness, no pitting edema, symmetrical pulses noted bilaterally Neurological: A&O x4, normal speech Psychiatric: Cooperative Constitutional Vital Signs, click to edit/add: Last Vital Signs Temp 98.4 F 08/27/24 16:38 Pulse 68 08/27/24 16:38 Resp 18 08/27/24 16:38 BP 129/86 08/27/24 16:38 Pulse Ox 95 08/27/24 16:38 O2 Del Method Room Air 08/27/24 16:38 Course Vital Signs Vital signs: Vital Signs Temperature 98.4 F 08/27/24 16:38 Pulse Rate 68 08/27/24 16:38 Respiratory Rate 18 08/27/24 16:38 Blood Pressure 129/86 08/27/24 16:38 Pulse Oximetry 95 08/27/24 16:38 Oxygen Delivery Method Room Air 08/27/24 16:38 Temperature 98.4 F 08/27/24 16:38 Pulse Rate 68 08/27/24 16:38 Respiratory Rate 18 08/27/24 16:38 Blood Pressure 129/86 08/27/24 16:38 Pulse Oximetry 95 08/27/24 16:38 Oxygen Delivery Method Room Air 08/27/24 16:38 Medical Decision Making [facility] Narrative Medical decision making narrative: Patient presenting with a laceration to the right hand. He is right-hand dominant. X-ray showed no acute foreign body. He was updated on tetanus immunization. Area was soaked in Hibiclens normal saline for 15 minutes. Let was applied. Patient then had an additional 1% lidocaine solution x 1 cc added to the area. Wound was reapproximated well using 4-0 Ethilon suture x 3 simple sutures. Wound reapproximated well. Bacitracin dressing applied by nursing staff. Patient given a prescription for Keflex. Follow-up with primary care physician in 10 days for suture removal. Back and shows that he has a healing fifth metacarpal fracture on this hand. Patient states it has been healing for several weeks and has no pain today. Differential Diagnosis Differential Diagnosis: laceration, puncture wound Medical Records Medical records reviewed: Yes I reviewed the patient's medical records Lab Data Lab results reviewed: Yes I reviewed the patient's lab results Discharge Plan Discharge Chief Complaint: Extremity Injury, Upper Clinical Impression: Laceration Patient Disposition: Home, Self-Care Time of Disposition Decision: 17:53 Condition: Good Prescriptions / Home Meds: New cephalexin 500 mg capsule 500 mg PO BID 10 Days Qty: 20 0RF No Action hydroxyzine HCl 50 mg tablet 50 mg PO BID cholecalciferol (vitamin D3) [Vitamin D3] 50 mcg (2,000 unit) tablet 50 mcg PO DAILY fluoxetine 20 mg capsule 80 mg PO DAILY pantoprazole [Protonix] [address] for susp in packet 40 mg PO DAILY prazosin 2 mg capsule 2 mg PO DAILY Print Language: Urugu[place] Instructions: Laceration (ED) Additional Instructions: follow up for suture removal in 10 days Referrals: JERRI HEDRICK [Primary Care Provider, Unknown] - 1 week Discharge Date/Time: 08/27/24 18:17
[2024-08-27] MEDS: BACITRACIN 0.9 GM PACKET 1 PACKET TOPICAL (18:16)
== END 2024-08-27 18:17 | disposition home or self-care (01) ==
PROVIDERS: Emergency Provider Emergency Medicine
DX: S61.411A Laceration without foreign body of right hand, initial encounter (principal); Z23 Encounter for immunization; W23.1XXA Caught, crushed, jammed, or pinched between stationary objects, initial encounter; S62.306D Unspecified fracture of fifth metacarpal bone, right hand, subsequent encounter for fracture with routine healing; X58.XXXD Exposure to other specified factors, subsequent encounter
CPT/HCPCS: 12001; 73130; 90471; 90715; 99283